=== PATIENT | female | born 1975 | race Caucasian/White ===

== ENCOUNTER 2021-09-02 23:08 | Emergency (ER) | payer MEDICAID, SELFPAY ==
[2021-09-02 23:10] VITALS: BP 205/107; PULSE 83; RESP 16; TEMP 36.7; O2SAT 97; BMI 40.9
--- NOTE | 2021-09-02 23:44 | ED.VIS.DENTA ---
HPI History of Present Illness Chief Complaint: Dental Informant: patient Onset/Context/Timing Onset: Today and Yesterday Context: Gradual Onset Timing: Continuous Current Severity: Moderate Maximum Severity: Severe Associated Symptoms Assocated Symptom - Dental: cold sensitivity; Negative for fever, jaw swelling or face swelling Narrative Narrative: 46-year-old female complaining of right lower jaw dental pain. Patient states she was at a local dental clinic they started doing a root canal at the doing 2 stages. She had a temporary filling placed which came out and now she is having excruciating throbbing pain. She denies any fever or facial or jaw swelling. No discharge. She is currently on no medications. Prior similar symptoms: Yes Recent Illness/Hospitalization: No PFSH PFSH Medical History Anxiety Depression Smoker Home Medications NK 09/02/21 [History Last Taken Unknown] Allergy/AdvReac Type Severity Reaction Status Date / Time Penicillins Allergy Hives Verified 09/02/21 23:09 Surgical History History of delivery Social History Smoking Status: Heavy Smoker (>10/day) ROS ROS ED ROS Narrative Denies recent illness. Review of Systems ROS Unobtainable: Denies due to encephalopathy Constitutional Constitutional ED: Denies fever(s) ENT ENT ED: Denies ear pain or sore throat Cardiovascular Cardiovascular: Denies chest pain Respiratory/Chest Respiratory/Chest: Denies dyspnea Gastrointestinal Gastrointestinal: Denies abdominal pain, diarrhea, nausea or vomiting Genitourinary Genitourinary ED: Denies dysuria Musculoskeletal Musculoskeletal: Denies myalgias Integumentary Denies rash Neurologic Neurologic: Denies headache(s) Psychiatric Psychiatric: Denies depression Endocrine Endocrinology: Denies polyuria Hematologic/Lymphatic Hematologic/Lymphatic: Denies easy bruising Allergic/Immunologic Allergic/Immunologic ED: Denies urticaria EXAM Physical Exam Narrative Exam Narrative: White female no acute distress vital signs stable initial blood pressure 205/107 with likely from pain. H EENT exam right lower tooth to the right of midline is a large cavity in it. Tender to palpation. There is really no significant gingival swelling or any obvious periodontal abscess. There is no facial swelling. She has multiple missing teeth and several cavities. Is able to close her jaw without difficulty the floor of her mouth is soft and nontender. Otherwise exam unremarkable. Const Vital Signs: 09/02/21 23:10 Temperature 98.1 F Temperature Source Temporal Pulse Rate 83 Respiratory Rate 16 Blood Pressure 205/107 H Blood Pressure Mean 139 Pulse Ox 97 Oxygen Delivery Method Room Air Positive well nourished and well developed General Appearance ED: well developed and NAD HEENT HEENT Narrative: Right lower dentition with large cavity and tenderness to palpation. No significant swelling. No abscess. tenderness Mouth ED: Yes oral and palatal mucosa normal, Yes lips normal, Yes tongue normal and Yes salivary gland normal Mouth: oral and palatal mucosa normal, lips normal, tongue normal and salivary gland normal Teeth and Gingiva: caries Throat: posterior oropharynx normal Eyes PERRL and EOMs intact bilaterally Neck no lymphadenopathy, supple and no JVD General: normal visual inspection; Negative for anterior neck swelling, tenderness or submandibular swelling Lymph Lymphatic: no lymphadenopathy noted; Negative for lymphadenopathy Chest Wall inspection of chest normal and palpation of chest normal Resp normal respiratory effort and clear to auscultation bilaterally Cardio regular rate, regular rhythm, S1 normal heart sound, S2 normal heart sound and no murmurs GI normal to inspection, nondistended, normoactive bowel sounds, non-tender and non-distended Palpation: soft Extremity normal to inspection Neuro oriented x3 and no focal motor deficits Sensorium / Orientation: alert, oriented to person, oriented to place and oriented to time Motor Exam: strength 5/5 throughout Psych mental status grossly normal Skin no rashes or lesions noted and no wounds MDM MDM MDM Narrative Medical decision making narrative: Discussed with patient treatment options she will follow up with her dentist tomorrow. They can place a new temporary filling. She may have pulpitis. There is no signs of infection. I did a dental block with lidocaine with epinephrine and she seemed to get significant relief within minutes. She will use Motrin and Tylenol at home for pain. She will be discharged with 2 Kidder to use tonight. She is driving she can take those at home. I did not give her a prescription of narcotic pain medication. Discharge Plan Triage Chief Complaint: Dental ED Provider: Britton Gallrado Dx/Rx/DC Orders Clinical Impression: Pain, dental Instructions: ED Dental Pain Prescriptions: No Action NK RF: 0 Primary Care Provider: Care Physician,No Primary Referrals: Lore Hewitt [NON-STAFF] - As soon as possible Care Physician,No Primary [Primary Care Provider] - Activity Restrictions/Additional Instructions: Use the Kidder at home for pain. No alcohol or driving while taking those. Otherwise Motrin and Tylenol for pain. Ice to your jaw. Call and follow-up with your dentist tomorrow. Disposition Disposition: Home, Self Care
[2021-09-02] MEDS: HYDROcodone Bitartrate/Apap 5/325 Tablet PO (23:54)
[2021-09-02] MEDS: Lidocaine 1% /Epi 1:100 (20ml) 20 ML Vial 3 ML INFILT (23:55)
[2021-09-02 23:57] VITALS: BP 173/100; PULSE 93; RESP 14; O2SAT 98
== END 2021-09-02 23:57 | disposition home or self-care (01) ==
PROVIDERS: Emergency Provider Emergency Medicine
DX: K08.89 Other specified disorders of teeth and supporting structures (principal); K02.9 Dental caries, unspecified; F17.200 Nicotine dependence, unspecified, uncomplicated
CPT/HCPCS: 99282

== ENCOUNTER 2021-09-21 21:43 | Emergency (ER) | payer MEDICAID, SELFPAY ==
[2021-09-21 21:44] VITALS: BP 215/136; PULSE 104; RESP 16; TEMP 36.4; O2SAT 100; BMI 40.1
[2021-09-21 21:45] VITALS: BP 215/136; PULSE 104; RESP 16; TEMP 36.4; O2SAT 100
--- NOTE | 2021-09-21 22:26 | ED.VIS.DENTA ---
HPI History of Present Illness Chief Complaint: Dental Narrative Narrative: Patient presenting for evaluation secondary to dental pain. Patient states that she has been dealing with right lower jaw dental pain over the course of the last couple weeks. She is already been on one course of antibiotics, is currently on a course of clindamycin. Patient reports that she went to the dentist today they informed her that they do not have time to do a root canal today but they could pull her tooth and she did not want them to pull the tooth that day. Patient is using Magic mouthwash and ibuprofen at home she is not getting any sort of pain relief. She denies difficulty swallowing. She denies any fevers. She denies any history of immunosuppression. Review of systems otherwise negative. PFSH PFSH Medical History Anxiety Depression Smoker Home Medications hydrocodone-acetaminophen 1 tab PO Q6H PRN PRN 3 Days #12 tablet 09/21/21 [Rx Last Taken Unknown] Allergy/AdvReac Type Severity Reaction Status Date / Time Penicillins Allergy Hives Verified 09/21/21 21:46 Surgical History History of delivery Social History Smoking Status: Heavy Smoker (>10/day) [facility] ED Constitutional Constitutional ED: Denies fever(s) ENT ENT ED: Reports other Details: Dental pain Respiratory/Chest Respiratory/Chest: Denies cough or dyspnea Gastrointestinal Gastrointestinal: Denies vomiting Integumentary Denies rash Hematologic/Lymphatic Hematologic/Lymphatic: Denies easy bleeding or easy bruising Allergic/Immunologic Allergic/Immunologic ED: Reports mouth swelling EXAM Physical Exam Const Vital Signs: 09/21/21 21:44 09/21/21 21:45 Temperature 97.5 F L 97.5 F L Temperature Source Temporal Temporal Pulse Rate 104 H 104 H Respiratory Rate 16 16 Blood Pressure 215/136 H 215/136 H Blood Pressure Mean 162 162 Pulse Ox 100 100 Positive well nourished and well developed General Appearance ED: well developed and NAD HEENT HEENT Narrative: Oral exam shows the patient to have reasonably good dentition. She has some swelling of the right mandibular jaw. Patient has some focal dental tenderness to percussion over her right mandibular cuspid. No evidence of sublingual edema. No obvious abscess noted. Eyes EOMs intact bilaterally Resp normal respiratory effort Cardio regular rate Extremity normal to inspection Neuro oriented x3 Sensorium / Orientation: alert Psych Mood & Affect: tearful Skin no rashes or lesions noted MDM MDM MDM Narrative Medical decision making narrative: Patient presented secondary to dental pain. An inferior alveolar block was performed using 3 cc of 0.5% bupivacaine and a 25-gauge 1-1/2 inch needle. Patient tolerated this well. I reviewed the patient's prescription reporting record, does not seem to show evidence of diversion. Patient does not have evidence of a deep space infection do not believe that imaging is indication. Patient will be discharged with a course of [place] for treatment of pain. She was recommended to continue following with the dentist, and to finish her course of clindamycin. Discharge Plan Triage Chief Complaint: Dental ED Provider: Ishmael Ziegler Dx/Rx/DC Orders Clinical Impression: Acute pulpitis Instructions: ED Dental Pain, ED Dental Abscess Prescriptions: New hydrocodone-acetaminophen 5-325 mg tablet 1 tab PO Q6H PRN PRN (Reason: Pain) 3 Days Qty: 12 RF: 0 Primary Care Provider: Care Physician,No Primary Referrals: Care Physician,No Primary [Primary Care Provider] - Activity Restrictions/Additional Instructions: Your Dentist Disposition Disposition: Home, Self Care
[2021-09-21] MEDS: Bupivacaine 0.5% PF 10 ML VIAL INFILT (22:44)
[2021-09-21 23:34] VITALS: BP 178/60; PULSE 78; RESP 18
== END 2021-09-21 23:34 | disposition home or self-care (01) ==
PROVIDERS: Emergency Provider Emergency Medicine
DX: K04.01 Reversible pulpitis (principal); F17.200 Nicotine dependence, unspecified, uncomplicated
CPT/HCPCS: 64999; 99282

== ENCOUNTER 2021-12-09 23:42 | Emergency (ER) | payer MEDICAID, SELFPAY ==
[2021-12-09 23:42] VITALS: PULSE 95; RESP 18; TEMP 35.9; O2SAT 100; BMI 41.5
--- NOTE | 2021-12-10 00:07 | RAD_ITS ---
STUDY: X-RAY CHEST REASON FOR EXAM: Female, 46 years old. Cough, dyspnea, fever TECHNIQUE: AP portable COMPARISON: 12/12/2013 FINDINGS: The lungs are clear and expanded. There is no demonstrated pleural abnormality. Normal size heart. Normal mediastinum and christina. Normal visualized pulmonary arteries. Normal visualized aortic arch and descending thoracic aorta. Normal visualized thoracic spine. Normal visualized ribs, clavicles, and shoulders. There is no demonstrated abnormality of the visualized soft tissue structures of the upper abdomen. RAD/Chest 1 View (Portable) IMPRESSION: Negative x-ray examination of the chest. No interval change. Electronically Signed: Héctor Rendon MD at 0:58 EST Tel , Service support ,
[2021-12-10] MEDS: 0.9% Normal Saline 1,000 ML 150 ML IV (00:23)
--- NOTE | 2021-12-10 00:23 | EX.ED.VIS.UR ---
HPI HPI - URI History of Present Illness Chief Complaint: Cough Detail of Chief Complaint: Fever and upper respiratory symptoms that started 6 days ago. 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 She presents with documented temperature and T-max of 101.3 over the past several days. She reports headache. She has upper respiratory symptoms and loss of taste. She had a Covid PCR test performed yesterday. She obtain results today and was told negative. She has not been tested for influenza. She does report headache. Denies photophobia, neck stiffness or neck pain. She does have a cough which is nonproductive. She does have history of asthma. She reports dyspnea on exertion. She does have GI symptoms with significant amount of diarrhea. There is no blood or mucus in the diarrhea. She is he has no history of inflammatory bowel disorder. She denies urologic symptoms. She has not noted a rash. Prior similar symptoms: Yes Recent Illness/Hospitalization: Yes [facility] ED Constitutional Constitutional ED: Reports chills, fever(s) and sweats; Denies weight loss Eyes Eyes: Denies blurry vision, change in vision or diplopia ENT ENT ED: Reports rhinorrhea and sore throat; Denies ear pain Cardiovascular Cardiovascular: Reports chest pain, palpitations and other Details: Chest pain is described as burning with breathing. ; Denies orthopnea, paroxysmal nocturnal dyspnea or racing heartbeat Respiratory/Chest Respiratory/Chest: Reports cough, dyspnea and dyspnea on exertion; Denies orthopnea or paroxysmal nocturnal dyspnea Gastrointestinal Gastrointestinal: Reports abdominal pain, diarrhea and nausea; Denies constipation or melena Genitourinary Genitourinary ED: Denies dysuria, hematuria or urinary frequency Musculoskeletal Musculoskeletal: Reports arthralgias and myalgias; Denies back pain or neck pain Integumentary Denies Abrasions or rash Neurologic Neurologic: Reports headache(s) and weakness; Denies paresthesias Endocrine Endocrinology: Denies polydipsia, polyphagia or polyuria Hematologic/Lymphatic Hematologic/Lymphatic: Denies easy bruising PFSH PFSH Medical History Anxiety Asthma Depression Smoker Home Medications hydrocodone-acetaminophen 1 tab PO Q6H PRN PRN 3 Days #12 tablet 09/21/21 [Rx Last Taken Unknown] Allergy/AdvReac Type Severity Reaction Status Date / Time No Known Allergies Allergy Verified 12/09/21 23:46 Surgical History History of delivery Social History (Updated 12/10/21 @ 00:[address] Larry Patel MD) household members: children Smoking Status: Heavy Smoker (>10/day) substance use type: does not use EXAM Physical Exam Const Vital Signs: 12/09/21 23:42 12/10/21 00:10 Temperature 96.6 F L Temperature Source Temporal Pulse Rate 95 Respiratory Rate 18 Respiratory Effort Labored Respiratory Depth Shallow Respiratory Pattern Normal Pulse Ox 100 Oxygen Delivery Method Room Air Positive well nourished, well developed and obese General Appearance ED: well developed and other Patient appears ill but not toxic. Temperature is 96.6. ; Negative for pallor Nutritional Appearance: obese HEENT Reports dry mucous membranes normocephalic and atraumatic External Ear: external ears normal and no preauricular adenopathy External Auditory Canal: EAC's normal Tympanic Membrane ED: Yes TM's normal bilaterally Mouth ED: Yes dry mucous membranes Mouth: dry mucous membranes Throat: posterior oropharynx normal Eyes PERRL and EOMs intact bilaterally General Eye ED: Negative for pale conjunctiva or scleral icterus Neck no lymphadenopathy, supple, no meningeal signs and no JVD General: Negative for anterior neck swelling Resp normal respiratory effort and clear to auscultation bilaterally Effort and Inspection: other Egophony noted right upper lobe posteriorly. Auscultation: Negative for rales, rhonchi or wheezes Cardio S1 normal heart sound, S2 normal heart sound and no murmurs Rate: regular rate Rhythm: regular rhythm GI non-tender, non-distended and no masses Auscultation: normoactive bowel sounds Palpation: soft Back/Spine no CVA tenderness and normal ROM Extremity normal to inspection and full ROM General Extremety ED: Negative for cyanosis or tenderness General Extremity: Negative for cyanosis Neuro oriented x3, CN's II-XII intact bilaterally and no sensory deficits noted Sensorium / Orientation: alert Psych mental status grossly normal Skin General Skin Exam: Negative for jaundice or pallor Lesions: no lesions Rashes: no rashes MDM MDM MDM Narrative Medical decision making narrative: Since patient had a negative Covid PCR test yesterday Covid test was not repeated. She may have influenza since she has not been vaccinated. Will assess for influenza. Chest x-ray to rule out pneumonia since she is having recurrent fever for days. CBC to assess white count and rule out anemia as cause of her dyspnea and dyspnea on exertion. Comprehensive metabolic panel to assess electrolytes, anion gap and renal function as well as liver enzymes. Patient was informed of her test results at 0118. She still symptomatic recommend quarantine. Even though her Covid test was negative yesterday clinically she has Covid. Lab Data Attestation: I reviewed the patient's lab results. Lab results narrative: White count, H&H and differential are unremarkable. Comprehensive metabolic panel is remarkable for glucose of 144. Labs: Laboratory Results - last 24 hr 12/10/21 12/10/21 00:28 00:28 WBC 9.9 RBC 4.79 Hgb 14.2 Hct 43.2 MCV 90.2 MCH 29.6 MCHC 32.9 RDW Std Deviation 44.1 H RDW Coeff of Raymon 13.2 Plt Count 213 MPV 10.9 Immature Gran % (Auto) 0.400 Neut % (Auto) 54.7 Lymph % (Auto) 36.2 [place] % (Auto) 4.6 Eos % (Auto) 3.7 Baso % (Auto) 0.4 Absolute Neuts (auto) 5.4 Absolute Lymphs (auto) 3.57 Nucleated RBC % 0 Sodium 140 Potassium 3.8 Chloride 106 Carbon Dioxide 28.0 Anion Gap 6 BUN 14 Creatinine 0.86 Estim Creat Clear Calc 81.18 Est GFR (MDRD) Af Amer 92 Est GFR (MDRD) Non-Af 76 BUN/Creatinine Ratio 16.3 Glucose 144 H Calcium 9.0 Total Bilirubin 0.20 AST 19 ALT 27 Alkaline Phosphatase 64 Total Protein 7.9 Albumin 3.0 L Globulin 4.9 H Albumin/Globulin Ratio 0.6 L Influenza rapid test for type a and type B were both negative. Radiography Diagnostic Testing: Clinical Impression(s) from Imaging Studies Chest X-Ray 12/10/21 00:07 IMPRESSION: Negative x-ray examination of the chest. No interval change. Electronically Signed: Héctor Rendon MD at 0:58 EST Tel , Service support , Portable single view chest x-ray reveals normal cardiac silhouette size. Perihilar regions unremarkable. Lung parenchyma is unremarkable. [place] structures are unremarkable. The chest x-ray is unremarkable. X-ray was interpreted by me at 0052. Discharge Plan Triage Chief Complaint: Cough ED Provider: Larry aPtel Dx/Rx/DC Orders Clinical Impression: Clinical diagnosis of COVID-19, Fever due to infection, Diarrhea, Hyperglycemia Instructions: Coronavirus Disease 2019 (COVID-19): Caring for Yourself or Others Prescriptions: No Action hydrocodone-acetaminophen 5-325 mg tablet 1 tab PO Q6H PRN PRN (Reason: Pain) 3 Days Qty: 12 RF: 0 Stand Alone Forms: ED Work / School Excuse Primary Care Provider: Care Physician,No Primary Referrals: Jhony Rico MD [STAFF PHYSICIAN] - 1 Week if not improving Care Physician,No Primary [Primary Care Provider] - Disposition Disposition: Home, Self Care
[2021-12-10 00:36] LABS: Absolute Lymphocyte Count 3.57 X10^3/uL (0.83-4.51); Absolute Neutrophil Count 5.4 X10^3/uL (2.0-7.7); Basophil# 0.04 X10^3/uL; Basophil% 0.4 % (0-1); Eosinophil# 0.36 X10^3/uL; Eosinophils% 3.7 % (0-5); Hematocrit 43.2 % (37-47); Hemoglobin 14.2 g/dL (12.0-15.0); Lymphocyte # 3.57 X10^3/ul (0.83-4.51); Lymphocyte % 36.2 % (19-41); Mean Corp Hgb Conc 32.9 g/dL (32-36); Mean Corpuscular Hgb 29.6 pg (27.0-32.0); Mean Corpuscular Volume 90.2 fL (81-99); Mean Platelet Vol. 10.9 fl (6.2-12.0); Monocyte# 0.45 X10^3/uL; Monocyte% 4.6 % (0-10); NRBC Flagged by Analyzer 0 % (0-5); Neutrophil # 5.39 X10^3/uL (2.7-7.7); Neutrophil % 54.7 % (47-70); Platelet Count 213 K/mm3 (150-450); RBC Distribution Width CV 13.2 % (11.6-14.6); RBC Distribution Width SD 44.1 fl (35.1-43.9); Red Blood Count 4.79 M/mm3 (4.2-5.4); White Blood Count 9.9 K/mm3 (4.4-11.0)
[2021-12-10 01:03] LABS: ALB/GLOB Ratio 0.6 RATIO (0.9-2.4); AST(SGOT) 19 U/L (15-37); Alanine Aminotransfer ALT/SGPT 27 U/L (13-56); Alkaline Phosphatase 64 U/L (45-117); Anion Gap 6 (5-15); BUN 14 mg/dL (7-18); BUN/Creat Ratio 16.3 RATIO (10-20); Chloride 106 mmol/L (98-107); Creatinine, Serum 0.86 mg/dL (0.55-1.02); EST Glomerular Filtration Rate 76 mL/min (>60); Est Glom Filt Rate - Afr Amer 92 mL/min (>60); Estimated Creatinine Clearance 81.18 ml/min; Globulin 4.9 g/dL (2.2-4.2); Glucose 144 mg/dL (74-106); Potassium 3.8 mmol/L (3.5-5.1); Protein, Total 7.9 g/dL (6.4-8.2); Sodium Level 140 mmol/L (136-145)
== END 2021-12-10 01:31 | disposition home or self-care (01) ==
PROVIDERS: Emergency Provider Emergency Medicine; Visit Provider Emergency Medicine
DX: U07.1 COVID-19 (principal); Z68.41 Body mass index [BMI] 40.0-44.9, adult; R19.7 Diarrhea, unspecified; R73.9 Hyperglycemia, unspecified; F17.200 Nicotine dependence, unspecified, uncomplicated; E66.9 Obesity, unspecified
CPT/HCPCS: 71045; 80053; 85025; 87804; 99284; J7030; A4216

== ENCOUNTER 2023-12-02 13:31 | Emergency (ER) | payer MEDICAID, SELFPAY ==
[2023-12-02 13:32] VITALS: BP 181/84; PULSE 66; RESP 14; TEMP 37.2; O2SAT 100; BMI 42.7
--- NOTE | 2023-12-02 14:22 | EDS_ITS ---
HPI <ROVERTO Salguero - Last Filed: 12/02/23 15:02> History of Present Illness Chief Complaint: Dental Narrative Narrative: Patient presenting today due to dental pain. She reports that she has had pain to her right upper tooth for the past 2 days. This has happened in the past where she has required antibiotics. Today, she woke up with a lot of swelling to the right side of her face and became concerned for dental abscess. She does not currently have a dentist. She denies any chronic health conditions. She denies fevers and chills. PFSH <ROVERTO Salguero - Last Filed: 12/02/23 15:02> PFSH Medical History Anxiety Asthma Depression Smoker Home Medications hydrocodone-acetaminophen 5-325mg 5mg-325mg 1 tab PO Q6H PRN PRN Pain 3 days #12 TABLETS 09/21/21 [Rx Last Taken Unknown] amoxicillin 500 mg capsule 500 mg PO TID 7 days #21 caps 12/02/23 [Rx Last Taken Unknown] hydrocodone-acetaminophen 5-325mg 5mg-325mg 1 tab PO DAILY 2 days #6 tabs 12/02/23 [Rx Last Taken Unknown] naproxen 500 mg tablet 500 mg PO BID PRN pain #14 tabs 12/02/23 [Rx Last Taken Unknown] Allergy/AdvReac Type Severity Reaction Status Date / Time No Known Allergies Allergy Verified 12/02/23 13:32 Surgical History History of delivery Social History household members: children Smoking Status: Heavy Smoker (>10/day) substance use type: does not use ROS <ROVERTO Salguero - Last Filed: 12/02/23 15:02> ROS ED Constitutional Constitutional ED: Denies chills or fever(s) Cardiovascular Cardiovascular: Denies chest pain Respiratory/Chest Respiratory/Chest: Denies cough or dyspnea Gastrointestinal Gastrointestinal: Denies abdominal pain, nausea or vomiting Musculoskeletal Musculoskeletal: Denies arthralgias or myalgias Integumentary Denies rash Neurologic Neurologic: Denies weakness EXAM <ROVERTO Salguero - Last Filed: 12/02/23 15:02> Physical Exam Const Vital Signs: 12/02/23 13:32 12/02/23 14:49 Temperature 99 F Temperature Source Temporal Pulse Rate 66 72 Respiratory Rate 14 16 Blood Pressure 181/84 H 126/71 H Blood Pressure Mean 116 89 Pulse Ox 100 98 Oxygen Delivery Method Room Air Positive well nourished, well developed and no apparent distress General Appearance ED: well developed HEENT Reports normocephalic and head/scalp atraumatic HEENT Narrative: Pain to the right maxillary second bicuspid, no trismus, no drooling, no dental abscess Mouth ED: Yes moist mucous membranes normal Throat: posterior oropharynx normal Eyes PERRL and EOMs intact bilaterally Neck full ROM and supple Chest Wall inspection of chest normal Resp normal respiratory effort and clear to auscultation bilaterally Cardio regular rate and regular rhythm GI soft to palpation, non-tender, non-distended and no masses Back/Spine normal ROM and normal to inspection Extremity normal to inspection and full ROM Neuro oriented x3, CN's II-XII intact bilaterally, moves all extremities, no focal motor deficits and no sensory deficits noted Sensorium / Orientation: awake and alert Psych mental status grossly normal and thought process normal Skin no rashes or lesions noted and no wounds <Dr. Srikanth Lizama MD - Last Filed: 12/02/23 14:47> Physical Exam Const Vital Signs: 12/02/23 13:32 12/02/23 14:49 Temperature 99 F Temperature Source Temporal Pulse Rate 66 72 Respiratory Rate 14 16 Blood Pressure 181/84 H 126/71 H Blood Pressure Mean 116 89 Pulse Ox 100 98 Oxygen Delivery Method Room Air MDM <ROVERTO Salguero - Last Filed: 12/02/23 15:02> [facility] Narrative Medical decision making narrative: Patient was continued with pain to her right axillary second bicuspid that she has had over the past 2 days. She reports that she has had issues with this tooth ever since having a crown placed by a dentist. She no longer sees a dentist and does not follow with any dentist. She is nontoxic-appearing and in no acute distress, vitals are unremarkable. She will be given Tylenol for pain and will be started on amoxicillin with first dose here. No signs of dental abscess or Ludewig's angina. She will be given a dental referral sheet. She will be discharged home in stable condition and is comfortable with plan. She will be given a few S[place]ents for pain and a prescription for naproxen. <Dr. Srikanth Lizama MD - Last Filed: 12/02/23 14:47> [facility] Treatment and Re-Evaluation :: I have personally performed a face to face assessment of the patient and have reviewed the EVELINA Note. I performed a substantive portion of the visit including all aspects of the following. My perez findings include: History is pain and swelling couple days after dental procedure. No fevers or chills or discharge from her nose, mouth, or bleeding. Exam is tender tooth approximately #4, there is some associated maxillary swelling but no discrete abscess. Gingiva normal-appearing. No bleeding no sign of necrosis. No purulent nasal discharge. Medical Decison Making patient given prescription for antibiotics and analgesics and requesting anti-inflammatories as well which is also given. Dental follow- up advised. Other additions or changes: [None] Discharge Plan Triage Chief Complaint: Dental ED Midlevel Provider: Rocío Abarca ED Provider: Srikanth Lizama Dx/Rx/DC Orders Clinical Impression: Dental caries, Pain, dental Instructions: ED Dental Pain Prescriptions: New hydrocodone-acetaminophen 5-325 mg tablet 1 tab PO DAILY 2 Days Qty: 6 0RF amoxicillin 500 mg capsule 500 mg PO TID 7 Days Qty: 21 0RF naproxen 500 mg tablet 500 mg PO BID PRN (Reason: pain) Qty: 14 0RF No Action hydrocodone-acetaminophen 5-325 mg tablet 1 tab PO Q6H PRN PRN (Reason: Pain) 3 Days Qty: 12 0RF Primary Care Provider: Care Physician,No Primary Referrals: Care Physician,No Primary [Primary Care Provider] - Activity Restrictions/Additional Instructions: Take antibiotics as prescribed and follow-up with a dentist. Return for worsening of symptoms. Disposition Disposition: Home, Self Care Discharge Date/Time: 12/02/23 14:50
[2023-12-02] MEDS: AMOXICILLIN 500 MG CAPSULE PO (14:23)
[2023-12-02] MEDS: Acetaminophen 325 MG Tablet 650 MG PO (14:23)
[2023-12-02 14:49] VITALS: BP 126/71; PULSE 72; RESP 16; O2SAT 98
--- OUTSIDE RECORDS SUMMARY | 2023-12-02 17:15 | XMS RPT_ITS | CCD ---
Author Name Unknown Address [address] [place] [address] Organization [facility] Care Team Providers Care Subsea Engineer Name Role Phone DAVEY LOWE Attending Unavailable XIMENA WOODALL Attending Unavailable PROVIDER, UNKNOWN Admitting Unavailable ZANDRA WALSH, DEVENDRA Urbano Attending Unavailable PHYSICIAN, NONE Primary Care Unavailable VLAD CANCINO Referring Unavailable VLAD CANCINO Referring Unavailable VLAD CANCINO Attending Unavailable Allergies Allergy Classification Reported Allergen(s) Allergy Type Date of Onset Reaction(s) Facility (2 sources) Penicillins; Translations: [PENICILLINS] Propensity to adverse reactions to drug (disorder) 8 [facility] Repository (1 source) procaine; Translations: [PROCAINE HCL] Drug Allergy 8 [facility] Repository (1 source) Ketorolac; Translations: [KETOROLAC TROMETHAMINE] [facility] Problems Problem Classification Problem Date Documented Da te Episodic/Chronic Abdominal pain (1 source) Abdominal pain Onset: 02-09-2019 Episodic Conditions associated with dizziness or vertigo (2 sources) Dizziness and giddiness; Translations: [Dizziness and giddiness] Onset: 04-24-2023 Episodic Unclassified (1 source) Unknown / UNK(Unknown) Onset: 08-28-2018 Results Test Name Value Interpretation Reference Range Facil ity Encounters Encounter Date Encounter Type Care Provider Facility Start: 04-24-2023 End: 04-25-2023 Emergency department patient visit VLAD CANCNIO [facility] Start: 12-04-2022 End: 12-04-2022 Emergency department patient visit DEVENDRA DE PAZ MD Facility:B Start: 10-09-2019 End: 10-09-2019 Emergency department patient visit XIMENA WOODALL Facility:[facility] Start: 02-09-2019 End: 02-09-2019 Emergency department patient visit DAVEY LOWE Facility:[facility] Start: 08-28-2018 End: 08-28-2018 Emergency department patient visit [facility] Procedures Date Procedure Procedure Detail Performing Clinician Start: 10-09-2019 DENTAL CLINIC SERVICE REQUEST XIMENA WOODALL Start: 10-09-2019 DISCHARGE PATIENT XIMENA WOODALL Payers Date Payer Category Payer Unknown [id number] 2019 Unknown 1975 Unknown [id number] 1975 Unknown [id number] Summary Purpose Family History No Family History Records FoundNo Family History Records FoundNo Family History Records FoundNo Family History Records FoundNo Family History Records FoundNo Family History Records FoundNo Family History Records FoundNo Family History Records FoundNo Family History Records FoundNo Family History Records Found Advance Directives No Advanced Directives Records FoundNo Advanced Directives Records FoundNo Advanced Directives Records FoundNo Advanced Directives Records FoundNo Advanced Directives Records FoundNo Advanced Directives Records FoundNo Advanced Directives Records FoundNo Advanced Directives Records FoundNo Advanced Directives Records FoundNo Advanced Directives Records Found Additional Source Comments INFORMATION SOURCE (unrecogn ized section and content) DATE CREATED AUTHOR AUTHOR'S ORGANIZ ATION 02/15/2019 [facility] DATE CREATED AUTHOR AUTHOR'S ORGANIZ ATION 06/19/2019 [facility] DATE CREATED AUTHOR AUTHOR[facility]S [facility]GANIZ ATION [facility] DATE CREATED AUTHOR AUTHOR'S ORGANIZ ATION 09/09/2019 [facility] DATE CREATED AUTHOR AUTHOR'S ORGANIZ ATION 01/04/2020 [facility] DATE CREATED AUTHOR AUTHOR'S ORGANIZ ATION 12/13/2020 [facility] DATE CREATED AUTHOR AUTHOR'S ORGANIZ ATION 12/31/2021 [facility] DATE CREATED AUTHOR AUTHOR'S ORGANIZ ATION 12/24/2022 [facility] ([place]) DATE CREATED AUTHOR AUTHOR'S ORGANIZ ATION 05/10/2023 [facility] FOR RECORDS PERTAINING TO PATIENTS WHO ARE OR HAVE BEEN ENROLLED IN A CHEMICAL DEPENDENCY/SUBSTANCEABUSE PROGRAM, SOME INFORMATION MAY BE OMITTED. This clinical summary was aggregated from multiple sources. Caution should be exercised in using it in the provision of clinical care. This summary normalizes information from multiple sources, and as a consequence, information in this document may materially change the coding, format and clinical context of patient data. In addition, data may be omitted in some cases. CLINICAL DECISIONS SHOULD BE BASED ON THE PRIMARY CLINICAL RECORDS. [employer] [facility]. provides no warranty or guarantee of the accuracy or completeness of information in this document.
== END 2023-12-02 14:50 | disposition home or self-care (01) ==
PROVIDERS: Emergency Provider Emergency Medicine; Visit Provider Emergency Medicine
DX: K02.9 Dental caries, unspecified (principal); K08.89 Other specified disorders of teeth and supporting structures; J45.909 Unspecified asthma, uncomplicated; F17.200 Nicotine dependence, unspecified, uncomplicated
CPT/HCPCS: 99283

== ENCOUNTER 2024-03-21 15:17 | Emergency (ER) | payer SELFPAY ==
[2024-03-21 15:18] VITALS: BP 163/116; PULSE 73; RESP 20; TEMP 35.9; O2SAT 98; BMI 42.8
--- NOTE | 2024-03-21 16:00 | ED.VIS.BACK ---
HPI History of Present Illness Chief Complaint: Lower Extremity Injury Informant: patient Onset/Context/Timing Onset: Yesterday Context: Sudden Onset Timing: Continuous Quality: Sharp, Aching, Burning and Throbbing Location: Lumbar, Buttock and Right Leg Worsened by: improves with Bending and - (Standing) Relieved by: Sitting and Remaining Still Associated Symptoms Associated Symptoms: Numbness, Tingling and Radiation to Right Leg; Negative for Radiation to Left Leg, Fever, Abdominal Pain, Dysuria, Unable to Ambulate, Unable to Transfer, Urinary Retention, Urinary Incontinence, Constipation or Fecal Incontinence PFSH PFSH Medical History Anxiety Asthma Depression Smoker Home Medications hydrocodone-acetaminophen 5-325mg 5mg-325mg 1 tab PO Q6H PRN PRN Pain 3 days #12 TABLETS 09/21/21 [Rx Last Taken Unknown] amoxicillin 500 mg capsule 500 mg PO TID 7 days #21 caps 12/02/23 [Rx Last Taken Unknown] hydrocodone-acetaminophen 5-325mg 5mg-325mg 1 tab PO DAILY 2 days #6 tabs 12/02/23 [Rx Last Taken Unknown] hydrocodone-acetaminophen 5-325mg 5mg-325mg 1 tab PO Q4H PRN PRN Pain 2 days #6 TABLETS 12/02/23 [Rx Last Taken Unknown] naproxen 500 mg tablet 500 mg PO BID PRN pain #20 tabs 03/21/24 [Rx Last Taken Unknown] orphenadrine citrate 100 mg tablet,extended release 100 mg PO BID PRN muscle spasm #20 tabs 03/21/24 [Rx Last Taken Unknown] Allergy/AdvReac Type Severity Reaction Status Date / Time No Known Allergies Allergy Verified 03/21/24 15:18 Surgical History History of delivery Social History household members: children Smoking Status: Heavy Smoker (>10/day) substance use type: does not use ROS ROS ED Constitutional Constitutional ED: Denies chills or fever(s) Eyes Eyes: Denies blurry vision or change in vision ENT ENT ED: Denies rhinorrhea or sore throat Cardiovascular Cardiovascular: Denies chest pain or palpitations Respiratory/Chest Respiratory/Chest: Denies cough or dyspnea Gastrointestinal Gastrointestinal: Denies nausea or vomiting Genitourinary Genitourinary ED: Reports hematuria; Denies dysuria Musculoskeletal Musculoskeletal: Reports back pain; Denies neck pain Integumentary Denies abscess or rash Neurologic Neurologic: Denies headache(s) or weakness Allergic/Immunologic Allergic/Immunologic ED: Denies mouth swelling or urticaria EXAM Physical Exam Const Vital Signs: 03/21/24 15:18 Temperature 96.7 F L Temperature Source Temporal Pulse Rate 73 Respiratory Rate 20 H Blood Pressure 163/116 H Blood Pressure Mean 131 Pulse Ox 98 Oxygen Delivery Method Room Air Positive well nourished, well developed and obese General Appearance ED: well developed and NAD Nutritional Appearance: obese HEENT Reports moist mucous membranes Neck supple and no JVD Back/Spine Back/Spine Narrative: There is tenderness over the right lower lumbar paraspinal muscles and sciatic notch. There is tenderness over the right gluteal area. There is no midline tenderness. There is no edema or ecchymosis. There is good range of motion. Strength is 5/5 bilaterally in the lower extremities. There are no sensory deficits noted. Pedal pulses are equal bilaterally. Deep tendon reflexes are 2/4 bilaterally in the lower extremities. Lumbar Spine / Lower Back: straight leg raise negative bilaterally Extremity normal to inspection General Extremety ED: Negative for edema or tenderness General Extremity: Negative for edema Neuro oriented x3 and no sensory deficits noted Sensorium / Orientation: alert Motor Exam: strength 5/5 throughout Deep Tendon Reflexes: Rt Patellar (L4): 2+, Lt Patellar (L4): 2+, Rt Ankle (S1): 2+ and Lt Ankle (S1): 2+ Deep Tendon Reflexes Back: Rt Patellar (L4): 2+, Lt Patellar (L4): 2+, Rt Ankle (S1): 2+ and Lt Ankle (S1): 2+ Psych mental status grossly normal MDM MDM MDM Narrative Medical decision making narrative: Smoking cessation was discussed. Patient was advised that this is most likely sciatic nerve impingement. Patient was given prescriptions for Naprosyn and Norflex. Patient was instructed to use ice to the area. Patient was instructed to follow-up with her primary care physician in 5 to 7 days. Patient was given a note for work. Patient understood and was agreeable with the plan. All questions were answered. Discharge Plan Triage Chief Complaint: Lower Extremity Injury ED Provider: Sal Min Dx/Rx/DC Orders Clinical Impression: Sciatica of right side, Morbid obesity with BMI of 40.0-44.9, adult Instructions: ED Sciatica Prescriptions: New orphenadrine citrate 100 mg tablet extended release 100 mg PO BID PRN (Reason: muscle spasm) Qty: 20 0RF Continued naproxen 500 mg tablet 500 mg PO BID PRN (Reason: pain) Qty: 20 0RF No Action hydrocodone-acetaminophen 5-325 mg tablet 1 tab PO Q6H PRN PRN (Reason: Pain) 3 Days Qty: 12 0RF hydrocodone-acetaminophen 5-325 mg tablet 1 tab PO DAILY 2 Days Qty: 6 0RF amoxicillin 500 mg capsule 500 mg PO TID 7 Days Qty: 21 0RF hydrocodone-acetaminophen 5-325 mg tablet 1 tab PO Q4H PRN PRN (Reason: Pain) 2 Days Qty: 6 0RF Stand Alone Forms: Work Status Form Primary Care Provider: Care Physician,No Primary Referrals: Dom Julian MD [Med Staff - Active Staff] - 5-7 Days Care Physician,No Primary [Primary Care Provider] - Disposition Disposition: Home, Self Care
[2024-03-21] MEDS: Ketorolac 60 MG/2 ML Vial IM (16:19)
[2024-03-21 17:17] VITALS: BP 145/86; PULSE 72; O2SAT 97
[2024-03-21 17:41] VITALS: BP 160/89; PULSE 74; RESP 16; TEMP 36.6; O2SAT 94
== END 2024-03-21 17:42 | disposition home or self-care (01) ==
PROVIDERS: Emergency Provider Emergency Medicine; Visit Provider Emergency Medicine
DX: M54.31 Sciatica, right side (principal); E66.01 Morbid (severe) obesity due to excess calories; Z68.41 Body mass index [BMI] 40.0-44.9, adult; F17.200 Nicotine dependence, unspecified, uncomplicated
CPT/HCPCS: 96372; 99282

== ENCOUNTER 2024-08-05 04:08 | Emergency (ER) | payer SELFPAY ==
[2024-08-05 04:10] VITALS: BP 226/119; PULSE 74; RESP 18; TEMP 36.4; O2SAT 98; BMI 42.9
[2024-08-05 04:12] VITALS: BP 226/119; PULSE 74; RESP 16; TEMP 36.4; O2SAT 98
--- NOTE | 2024-08-05 04:24 | EDS_ITS ---
HPI History of Present Illness Chief Complaint: Dental Narrative Narrative: 49-year-old female who denies significant past medical history presents with pain in her tooth that she has had for the last 4 days. Domonique left lower jaw. She states she saw dentist a few months ago and had a Placed, but it fell off. She has a temporary filling. She is a smoker. She has been taking [id number] medications including NSAIDs without relief of her symptoms. She denies fevers or chills, no other symptoms. She has pain in her left lower jaw from a carious tooth. PFSH [facility], [facility] Medical History Asthma Smoker Anxiety Depression Home Medications ?Medication ?Instructions ?Recorded ?Last Taken ?Type amoxicillin 500 mg tablet 500 mg PO TID #21 tabs 08/05/24 Unknown Rx hydrocodone-acetaminophen 5-325mg 1 tab PO Q6H 2 days #6 TABLETS 08/05/24 Unknown Rx 5mg-325mg Allergy/AdvReac Type Severity Reaction Status Date / Time No Known Allergies Allergy Verified 08/05/24 04:09 Surgical History History of delivery Social History household members: children Smoking Status: Heavy Smoker (>10/day) substance use type: does not use ROS ROS ED ROS Narrative Left lower jaw pain, left tooth pain and bicuspid tooth. No fevers or chills, no nausea or vomiting. No chest pain or shortness of breath. EXAM Physical Exam Narrative Exam Narrative: Afebrile. Vital signs noted. Focused physical examination reveals carious tooth in the bicuspid area of the left lower jaw. No drooling or trismus. No Jacques angina. No angioedema of the tongue. No gingival abscess. Cardiovascular examination regular rate and rhythm, lungs are clear to auscultation bilaterally. Abdomen soft nontender with normal active bowel sounds. Const Vital Signs: 08/05/24 04:10 08/05/24 04:12 08/05/24 04:36 Temperature 97.6 F L 97.6 F L 97.8 F Temperature Source Temporal Temporal Pulse Rate 74 74 78 Respiratory Rate 18 16 16 Blood Pressure 226/119 H 226/119 H 183/88 H Blood Pressure Mean 154 154 119 Pulse Ox 98 98 99 Oxygen Delivery Method Room Air Room Air MDM MDM MDM Narrative Medical decision making narrative: Patient noted to have elevated blood pressure in the emergency department. She is asymptomatic with this. I discussed smoking cessation with her but she states that she is not going to quit because she enjoys it. I do feel that she may have an acute pulpitis so she will be started on amoxicillin. She drove herself here. I reviewed her prior records and she has been seen in the past and did receive 6 [place] [facility] tablets the last time she was here and back in 2020. I wrote her a prescription for amoxicillin 500 mg to take 3 times a day for the next week, and for the 6 [place] [facility] tablets. She was also told to keep an eye on her blood pressure. Upon repeat check, her systolic blood pressure is 183, and her diastolic is down to 88. In review of her previous blood pressures, this is around her baseline. At this point in time, I feel she can be discharged to follow-up with a dentist and a primary care provider. Return instructions reviewed. Disposition is discharged home in stable condition. History & Record Review Discussion w/independent historian: Patient Additional record(s) reviewed:: Prior ED visit and Other ([facility] report) Discharge Plan Triage Chief Complaint: Dental ED Provider: Maikel Gonzalez Dx/Rx/DC Orders Clinical Impression: Pain due to dental caries, Elevated blood pressure reading Instructions: ED Dental Pain, ED Dental Cavity, ED Hypertension, To Be Confirmed Prescriptions: New amoxicillin 500 mg tablet 500 mg PO TID Qty: 21 0RF hydrocodone-acetaminophen 5-325 mg tablet 1 tab PO Q6H 2 Days Qty: 6 0RF Primary Care Provider: Care Physician,No Primary Referrals: Carlos Pruitt MD [Med Staff - Active Staff] - As soon as possible Care Physician,No Primary [Primary Care Provider] - Activity Restrictions/Additional Instructions: Keep an eye on your blood pressure. You may need to have this addressed soon. Return with symptoms of chest pain, shortness of breath, headache. See a dentist soon as possible. Stop smoking. Print Language: [place]ican Disposition Disposition: Home, Self Care
[2024-08-05] MEDS: AMOXICILLIN 500 MG CAPSULE PO (04:35)
[2024-08-05 04:36] VITALS: BP 183/88; PULSE 78; RESP 16; TEMP 36.6; O2SAT 99
== END 2024-08-05 04:55 | disposition home or self-care (01) ==
PROVIDERS: Emergency Provider Emergency Medicine; Visit Provider Emergency Medicine
DX: K02.9 Dental caries, unspecified (principal); F17.200 Nicotine dependence, unspecified, uncomplicated; R03.0 Elevated blood-pressure reading, without diagnosis of hypertension; R68.84 Jaw pain; J45.909 Unspecified asthma, uncomplicated
CPT/HCPCS: 99282

== ENCOUNTER 2024-08-15 06:46 | Emergency (ER) | payer SELFPAY ==
[2024-08-15 06:46] VITALS: BP 210/103; PULSE 72; RESP 18; TEMP 36.6; O2SAT 98
[2024-08-15 06:50] VITALS: BP 210/103; PULSE 72; RESP 16; TEMP 36.6; O2SAT 98; BMI 39.1
--- NOTE | 2024-08-15 07:14 | ED.VIS.DENTA ---
HPI History of Present Illness Chief Complaint: Dental Narrative Narrative: Chief complaint and HPI: Dental pain. 49-year-old female with no significant past medical history presents for evaluation of left lower tooth pain. Patient states that she was just recently seen in our emergency department earlier this month for it. She states she was diagnosed with a dental infection and placed on amoxicillin. She states that her fevers resolved. She states that her pain mildly improved but then worsened yesterday after finishing antibiotics. Patient has not followed up or call the dentist. She admits that she has not seen a dentist in 3 years. She describes this pain as throbbing and radiates to the left side of her face. Uses tobacco. Has been taking Tylenol and NSAIDs with minimal relief. Denies current fever, chills, shortness of breath, chest pain, difficulty swallowing, numbness/tingling, headache, blurry vision. Review of systems: See HPI Medications: As listed on the chart Allergies: As listed on the chart PFSH: Per chart Vital signs: As listed on the chart. Reviewed. Physical exam: Gen: A&O x3, NAD Head: Normocephalic, atraumatic Eyes: No sclera icterus, conjunctiva clear, PERRL, EOMI ENT: TMs clear BL, moist mucous membranes, tolerating secretions, posterior oropharynx unremarkable, uvula midline, tonsils not enlarged, no tonsillar exudates, no submandibular or tongue swelling, no Jacques angina, patient has very poor dentition with broken teeth and dental caries, inflamed gingiva, no palpable or visualized abscess, patient's pain is located in her second premolar and first molar. She has a dental cavity in these teeth. Teeth are tender to touch Neck: Trachea midline, No JVD, Full ROM, No meningismus, no swelling CV: RRR, no murmurs, no peripheral edema Resp: Lungs CTA BL, no w/r/c Musc: Full ROM, no deformity Skin: Warm, dry Neuro: Alert, oriented, grossly intact, sensation intact Psych: Cooperative, appropriate mood and affect [facility] Medical History Asthma Smoker Anxiety Depression Home Medications ?Medication ?Instructions ?Recorded ?Last Taken ?Type amoxicillin 875 mg-potassium 1 tab PO Q12H 14 days #28 tabs 08/15/24 Unknown Rx clavulanate 125 mg tablet oxycodone-acetaminophen 5 mg-325 1 tab PO Q6H 3 days #12 tabs 08/15/24 Unknown Rx mg tablet (Percocet) Allergy/AdvReac Type Severity Reaction Status Date / Time No Known Allergies Allergy Verified 08/15/24 06:47 Surgical History History of delivery Social History household members: children Smoking Status: Heavy Smoker (>10/day) substance use type: does not use EXAM Physical Exam Const Vital Signs: 08/15/24 06:46 08/15/24 06:50 08/15/24 07:55 Temperature 97.8 F 97.8 F 97.5 F L Temperature Source Temporal Temporal Pulse Rate 72 72 71 Respiratory Rate 18 16 18 Blood Pressure 210/103 H 210/103 H 187/107 H Blood Pressure Mean 138 138 133 Pulse Ox 98 98 96 Oxygen Delivery Method Room Air Room Air MDM MDM MDM Narrative Medical decision making narrative: 49-year-old female presents for evaluation of dental pain. Patient has very poor dentition with broken teeth and dental caries. She was seen previously in our emergency department. Record was reviewed. At that time she was placed on amoxicillin and hydrocodone/acetaminophen. Patient denies any systemic symptoms such as fever, chills, nausea, vomiting. No Jacques angina. She is nontoxic. Afebrile. She has hypertensive which I suspect is secondary to her pain. No abscess seen on physical exam. Patient needs to follow-up with a dentist. She was educated thoroughly on this. I did supply her with a sheet of local dentist. She was told that she needs to call to make an appointment as soon as possible. Will give IM Toradol here for pain. Will broaden coverage with Augmentin. Prescribed Percocet. I explained to her that ibuprofen will be the best medication to control her pain. She was educated on dosing. After pain medication, patient's blood pressure did improve. She still hypertensive. But again, given that she is still in pain this is likely the source. Patient is asymptomatic otherwise from her hypertension. Patient is stable to discharge home. Follow-up with dentist. Return precautions explained. She confirmed understanding. Discharge Plan Triage Chief Complaint: Dental ED Provider: Chema Willis Dx/Rx/DC Orders Clinical Impression: Pain due to dental caries Instructions: ED Dental Pain Prescriptions: New amoxicillin-pot clavulanate 875-125 mg tablet 1 tab PO Q12H 14 Days Qty: 28 0RF oxycodone-acetaminophen [Percocet] 5-325 mg tablet 1 tab PO Q6H 3 Days Qty: 12 0RF Primary Care Provider: Care Physician,No Primary Referrals: Care Physician,No Primary [Primary Care Provider] - Dentist,Your [STAFF PHYSICIAN] - Activity Restrictions/Additional Instructions: Call your dentist as soon as possible. Take all you antibiotics. Return if symptoms worsen. Take ibuprofen 600mg every 6 hours as needed for pain. Percocet for severe pain. Don't operate heavy machinery or drive while on narcotics. Follow-up with one of the dentist provided to you. Print Language: Malay Disposition Disposition: Home, Self Care Discharge Date/Time: 08/15/24 08:01
[2024-08-15] MEDS: Ketorolac 30 MG/ML Syringe IM (07:20)
[2024-08-15 07:55] VITALS: BP 187/107; PULSE 71; RESP 18; TEMP 36.4; O2SAT 96
== END 2024-08-15 08:01 | disposition home or self-care (01) ==
PROVIDERS: Emergency Provider Surgery; Visit Provider Surgery
DX: K02.9 Dental caries, unspecified (principal); S02.5XXA Fracture of tooth (traumatic), initial encounter for closed fracture; X58.XXXA Exposure to other specified factors, initial encounter; I10 Essential (primary) hypertension; F17.200 Nicotine dependence, unspecified, uncomplicated
CPT/HCPCS: 96372; 99282

== ENCOUNTER 2024-08-16 17:03 | Emergency (ER) | payer SELFPAY ==
[2024-08-16 17:03] VITALS: BP 182/107; PULSE 89; RESP 16; TEMP 37.1; O2SAT 100; BMI 43.0
--- NOTE | 2024-08-16 17:56 | CT_ITS ---
INDICATION: left jaw pain and swelling EXAMINATION: CT NECK WITH CONTRAST - CT Soft Tissue Neck W/ Contrast Injection TECHNIQUE: Helically acquired images were obtained of the neck following IV contrast. A radiation dose optimization technique was used for this scan. IV Contrast dosage and agent: 75 cc [id number] COMPARISON: None. FINDINGS: NASOPHARYNX: Unremarkable. SUPRAHYOID NECK: Unremarkable oropharynx, oral cavity, parapharyngeal space, and retropharyngeal space. INFRAHYOID NECK: Unremarkable larynx, hypopharynx, and supraglottis. THYROID: No focal lesions. SALIVARY GLANDS: Unremarkable. LYMPH NODES: Left cervical lymphadenopathy. VASCULAR STRUCTURES: Unremarkable. VISUALIZED PORTIONS OF THE ORBITS, PARANASAL SINUSES, MASTOID AIR CELLS AND SKULL BASE: Unremarkable. BONES/SOFT TISSUES: There is a 5 x 2 mm rim-enhancing fluid collection adjacent to the left mandibular angle and contiguous with a periapical lucency involving the left mandibular premolar.. There is surrounding fat stranding. THORACIC INLET: Clear lung apices. CT/Soft Tissue Neck WITH Contrast IMPRESSION: 5 mm left buccal abscess contiguous with a dental abscess of the left mandibular premolar. Electronically Signed: Héctor Ball MD at 19:17 EDT ,
--- NOTE | 2024-08-16 17:58 | ED.VIS.DENTA ---
HPI History of Present Illness Chief Complaint: Dental Informant: patient Narrative Narrative: Patient is a 49-year-old female with history of regular tobacco use presenting with worsening pain and swelling in her left lower jaw. Patient's states this is her third ER visit for this. She was seen on 08/05 and placed on a course of amoxicillin. The day after she finished that she felt her symptoms worsen and was seen yesterdayWhere she reported worsening of her symptoms again. Was prescribed Augmentin and given Percocet for pain. Instructed to take Motrin 600 mg every 6 hours as well. She states her symptoms having continued to worsen. She states she is now having numbness between her chin and below her ear on her jaw. At this is on the left. She is worried she has an abscess. She also notes when she woke up her ankles were swollen and she has a mild amount of chest discomfort. She feels mildly short of breath. She states the medicines are not helping with her pain. Denies any fevers. Does report she feels itchy. States has ever had this reaction before. Is not reporting any drooling. No other complaints or concerns at this time. [facility] Medical History Asthma Smoker Anxiety Depression Home Medications ?Medication ?Instructions ?Recorded ?Last Taken ?Type amoxicillin 875 mg-potassium 1 tab PO Q12H 14 days #28 tabs 08/15/24 Unknown Rx clavulanate 125 mg tablet oxycodone-acetaminophen 5 mg-325 1 tab PO Q6H 3 days #12 tabs 08/15/24 Unknown Rx mg tablet (Percocet) gabapentin 100 mg capsule 100 mg PO QHS #7 caps 08/16/24 Unknown Rx ibuprofen 600 mg tablet 600 mg PO Q6H PRN pain #20 tabs 08/16/24 Unknown Rx ondansetron 4 mg disintegrating 4 mg PO Q8H PRN PRN Nausea #10 tabs 08/16/24 Unknown Rx tablet Allergy/AdvReac Type Severity Reaction Status Date / Time No Known Allergies Allergy Verified 08/16/24 17:04 Surgical History History of delivery Social History household members: children Smoking Status: Heavy Smoker (>10/day) substance use type: does not use ROS ROS ED Constitutional Constitutional ED: Denies fever(s) ENT ENT ED: Reports other Details: Left lower dental pain and swelling Cardiovascular Cardiovascular: Reports chest pain Respiratory/Chest Respiratory/Chest: Denies cough Gastrointestinal Gastrointestinal: Reports nausea; Denies vomiting Musculoskeletal Musculoskeletal: Reports neck pain; Denies arthralgias or myalgias Integumentary Denies rash Neurologic Neurologic: Reports headache(s) and paresthesias; Denies weakness Psychiatric Psychiatric: Reports anxiety Hematologic/Lymphatic Hematologic/Lymphatic: Denies easy bleeding or easy bruising EXAM Physical Exam Const Vital Signs: 08/16/24 17:03 08/16/24 18:23 08/16/24 21:03 Temperature 98.8 F 97.6 F L Temperature Source Temporal Temporal Pulse Rate 89 103 H 67 Respiratory Rate 16 20 H 16 Blood Pressure 182/107 H 187/103 H Blood Pressure Mean 132 131 Pulse Ox 100 100 94 Oxygen Delivery Method Room Air Room Air Room Air 08/17/24 00:04 Temperature 97.8 F Temperature Source Pulse Rate 81 Respiratory Rate 17 Blood Pressure 135/81 H Blood Pressure Mean 99 Pulse Ox 92 Oxygen Delivery Method Positive well nourished and well developed General Appearance ED: well developed and NAD HEENT Reports TM's clear HEENT Narrative: Tenderness and soft tissue swelling noted of the left mandibular area. No obvious abscess appreciated but there is swelling of the periosteal/buccal surface near the left premolars. Sublingual mucosa is soft. Multiple missing and carried teeth present. Tympanic Membrane ED: Yes TM's clear Throat: posterior oropharynx normal Eyes PERRL and EOMs intact bilaterally Neck supple Neck Narrative: Tenderness palpation of the left submandibular region. General: tenderness and submandibular swelling Chest Wall inspection of chest normal and palpation of chest normal Resp normal respiratory effort and clear to auscultation bilaterally Cardio regular rate and regular rhythm GI normal to inspection, nondistended, normoactive bowel sounds and non-tender Extremity normal to inspection Extremity Narrative: Trace pain edema of the lower extremities General Extremety ED: Yes edema General Extremity: edema Neuro oriented x3 Sensorium / Orientation: alert Motor Exam: Negative for general weakness Psych mental status grossly normal Mood & Affect: anxious Skin no rashes or lesions noted MDM MDM MDM Narrative Medical decision making narrative: Patient is evaluated for worsening dental pain and swelling. In addition she also feels that her ankle started swelling today. Patient is currently on Augmentin which was prescribed yesterday morning. She also was prescribed Percocet for pain. Patient states that is not working for her pain. Clinically I do not suspect Jacques's angina and she does not have any systemic symptoms. She is uncomfortable and due to the worsening swelling I will obtain CT imaging as well as lab work. Her white blood cell count is normal. She also reports some swelling of her leg so I did add on cardiac workup including BNP, troponin, EKG. swelling is bilateral and mild. Low suspicion for pulmonary emboli. Patient is given IV morphine, Zofran's and IV fluid as well as Toradol in the ER for symptom control. EKG is not consistent with an acute ischemic process. High sensitive troponin is normal as well as her BNP. I do not suspect a more severe systemic cause of her lower extremity edema. CT soft tissue neck does show a 5 mm left buccal abscess continuous with a dental abscess to the left mandibular premolar. Chest x-ray viewed by myself as well as radiology does not show any acute process. Dental block performed using Marcaine. Initially inferior alveolar block is a performed. Patient does not have adequate analgesia with this and a second block with a mixture of a periosteal block of the left premolar space as well as a further alveolar block. Patient now has adequate analgesia. Attempted to use an 18-gauge needle over the area of fluctuance to aspirate purulence however after 4 attempts I did not find any pockets of purulence. The area of abscess is only 5 mm and small. Hopefully by new labs to the rating with an 18-gauge needle track will be open to allow for further drainage. Patient needs further time for her Augmentin to work. Given that she does not have any systemic symptoms including fever or leukocytosis I do not think she requires admission for IV antibiotics or operative drainage at this time. She is counseled on smoking cessation. As she has an active prescription for Percocet I did explain to her that I cannot provide further prescription for opioids. She is given a prescription for gabapentin to hopefully help with the pain as she is complaining of more of a nerve pain as well. Is given a prescription for Motrin 600 mg. Is also given a prescription for Zofran. Is given return precautions. Discharged home in stable condition. Counseled that if her symptoms do where she might require admission for IV antibiotics at that point.Counseled the importance of following up with a dentist. Lab Data Attestation: I reviewed the patient's lab results. Labs: Laboratory Results - last 24 hr 08/16/24 18:06 WBC 10.7 RBC 4.74 Hgb 14.1 Hct 42.5 MCV 89.7 MCH 29.7 MCHC 33.2 RDW Std Deviation 45.0 H RDW Coeff of Raymon 13.9 Plt Count 198 MPV 10.9 Immature Gran % (Auto) 0.500 Neut % (Auto) 68.5 Lymph % (Auto) 23.6 Gilliam % (Auto) 4.7 Eos % (Auto) 2.4 Baso % (Auto) 0.3 Absolute Neuts (auto) 7.3 Absolute Lymphs (auto) 2.53 Nucleated RBC % 0 Sodium 136 Potassium 3.9 Chloride 102 Carbon Dioxide 28.0 Anion Gap 6 BUN 11 Creatinine 0.91 Estim Creat Clear Calc 104.68 Est GFR (MDRD) Af Amer 85 Est GFR (MDRD) Non-Af 70 BUN/Creatinine Ratio 12.1 Glucose 129 H Calcium 9.2 Total Bilirubin 0.30 AST 17 ALT 19 Alkaline Phosphatase 60 Troponin I High Sens 5 B-Natriuretic Peptide 16.4 Total Protein 7.7 Albumin 3.2 Globulin 4.5 H Albumin/Globulin Ratio 0.7 L Radiography Diagnostic Testing: Clinical Impression(s) from Imaging Studies Soft Tissue Neck CT 08/16/24 17:56 IMPRESSION: 5 mm left buccal abscess contiguous with a dental abscess of the left mandibular premolar. Electronically Signed: Héctor Ball MD at 19:17 EDT , Chest X-Ray 08/16/24 18:37 IMPRESSION: No acute radiographic abnormalities. Electronically Signed: Héctor Ball MD at 19:30 EDT , Rhythm Strip Rhythm Strip: Sinus Rhythm Rate: 73 Ectopy: None EKG Initial EKG: Attestation: I personally reviewed and interpreted this EKG as follows: Interpretation: Sinus Rhythm Comments: Normal sinus rhythm at a rate of 73 bpm Normal axis Minimal voltage criteria for LVH Incomplete right bundle branch block present Discharge Plan Triage Chief Complaint: Dental ED Provider: Maddy Stark Dx/Rx/DC Orders Clinical Impression: Abscess, dental, Jaw pain Instructions: ED Dental Pain, ED Dental Abscess Facial Cellulitis Prescriptions: New ibuprofen 600 mg tablet 600 mg PO Q6H PRN (Reason: pain) Qty: 20 0RF ondansetron 4 mg tablet,disintegrating 4 mg PO Q8H PRN PRN (Reason: Nausea) Qty: 10 0RF gabapentin 100 mg capsule 100 mg PO QHS Qty: 7 0RF No Action amoxicillin-pot clavulanate 875-125 mg tablet 1 tab PO Q12H 14 Days Qty: 28 0RF oxycodone-acetaminophen [Percocet] 5-325 mg tablet 1 tab PO Q6H 3 Days Qty: 12 0RF Stand Alone Forms: ED Work / School Excuse Primary Care Provider: Care Physician,No Primary Referrals: Carlos Pruitt MD [Med Staff - Active Staff] - As soon as possible Care Physician,No Primary [Primary Care Provider] - Activity Restrictions/Additional Instructions: Please follow-up with dentist as soon as possible. Take medications as prescribed. Your lab work was normal today. Your blood pressure was elevated in the ER and seems to be rechecked by primary care doctor. Continue taking antibiotics as prescribed. If your symptoms worsen so she over the next 24 to 48 hours, you develop fever have a hard time swelling please return to the emergency room is at that time you might require IV antibiotics and admission. Print Language: Latvian Disposition Disposition: Home, Self Care Discharge Date/Time: 08/17/24 00:10
[2024-08-16] MEDS: 0.9% Normal Saline (1000mL) 1,000 ML 1000 ML IV (18:17)
[2024-08-16] MEDS: morphine 8 MG/ML Syringe IV (18:18)
[2024-08-16] MEDS: Ondansetron 4 MG/2 ML Vial IV (18:18)
[2024-08-16] MEDS: Ketorolac 15 MG/ML Vial IV (18:18)
[2024-08-16 18:23] VITALS: BP 187/103; PULSE 103; RESP 20; TEMP 36.4; O2SAT 100
[2024-08-16 18:29] LABS: Absolute Lymphocyte Count 2.53 X10^3/uL (0.83-4.51); Absolute Neutrophil Count 7.3 X10^3/uL (2.0-7.7); Basophil# 0.03 X10^3/uL; Basophil% 0.3 % (0-1); Eosinophil# 0.26 X10^3/uL; Eosinophils% 2.4 % (0-5); Hematocrit 42.5 % (37-47); Hemoglobin 14.1 g/dL (12.0-15.0); Lymphocyte # 2.53 X10^3/ul (0.83-4.51); Lymphocyte % 23.6 % (19-41); Mean Corp Hgb Conc 33.2 g/dL (32-36); Mean Corpuscular Hgb 29.7 pg (27.0-32.0); Mean Corpuscular Volume 89.7 fL (81-99); Mean Platelet Vol. 10.9 fl (6.2-12.0); Monocyte% 4.7 % (0-10); NRBC Flagged by Analyzer 0 % (0-5); Neutrophil # 7.34 X10^3/uL (2.7-7.7); Neutrophil % 68.5 % (47-70); Platelet Count 198 K/mm3 (150-450); RBC Distribution Width CV 13.9 % (11.6-14.6); Red Blood Count 4.74 M/mm3 (4.2-5.4); White Blood Count 10.7 K/mm3 (4.4-11.0)
[2024-08-16 18:35] LABS: BNP,B-Type NATRIURETIC PEPTIDE 16.4 pg/mL (0-100)
--- NOTE | 2024-08-16 18:37 | RAD_ITS ---
INDICATION: chest pain, edema EXAMINATION/TECHNIQUE: X-RAY - XR Chest 2 Views COMPARISON: 12/10/2021. FINDINGS: The lungs are clear. The cardiomediastinal silhouette is unremarkable. No pleural effusion or pneumothorax. Degenerative changes of the thoracic spine. RAD/Chest PA and Lateral IMPRESSION: No acute radiographic abnormalities. Electronically Signed: Héctor Ball MD at 19:30 EDT ,
[2024-08-16 18:39] LABS: ALB/GLOB Ratio 0.7 RATIO (0.9-2.4); AST(SGOT) 17 U/L (15-37); Alanine Aminotransfer ALT/SGPT 19 U/L (13-56); Albumin, Serum 3.2 g/dL (3.2-5.0); Alkaline Phosphatase 60 U/L (45-117); Anion Gap 6 (5-15); BUN 11 mg/dL (7-18); BUN/Creat Ratio 12.1 RATIO (10-20); Calcium,Total 9.2 mg/dL (8.5-10.1); Chloride 102 mmol/L (98-107); Creatinine, Serum 0.91 mg/dL (0.55-1.02); EST Glomerular Filtration Rate 70 mL/min (>60); Est Glom Filt Rate - Afr Amer 85 mL/min (>60); Estimated Creatinine Clearance 104.68 ml/min; Globulin 4.5 g/dL (2.2-4.2); Glucose 129 mg/dL (74-106); Potassium 3.9 mmol/L (3.5-5.1); Protein, Total 7.7 g/dL (6.4-8.2); Sodium Level 136 mmol/L (136-145); Troponin-I HS 5 pg/mL (3.0-54.0)
[2024-08-16 21:03] VITALS: PULSE 67; RESP 16; O2SAT 94
[2024-08-16] MEDS: Bupivacaine 0.5%/Epi 1.8 ML Syringe INFILT (21:14)
[2024-08-17 00:04] VITALS: BP 135/81; PULSE 81; RESP 17; TEMP 36.6; O2SAT 92
--- NOTE | 2024-08-17 00:05 | ED.RN ---
patient upset dental block will only last a couple hours. Dr. Stark aware. Dr. Stark states She is aware it will only last a couple hours. she has percocet at home she is to take to help. I also prescribed her zofran, ibuprofen and gabapentin. she is to follow up with a dentist. patient informed of Dr. Stark's recommendations. patient states why wouldn't she drain the absess? its right here. RN states she attempted to multiple times but is unable to reach it. Patient states what do you mean? its right here ( pointing to her left back molars) RN states she attempted and was not successful. you need to follow up with a dentist. patient states all she has to do is make an incision right here and drain it. it's not that difficult. RN states you need to follow up with a dentist. she is unable to drain the absess. pt also states she is not picking up her prescriptions. Pharmacy notified
== END 2024-08-17 00:10 | disposition home or self-care (01) ==
PROVIDERS: Emergency Provider Emergency Medicine; Visit Provider Emergency Medicine
DX: K04.7 Periapical abscess without sinus (principal); R03.0 Elevated blood-pressure reading, without diagnosis of hypertension; R60.0 Localized edema; R06.02 Shortness of breath; F17.200 Nicotine dependence, unspecified, uncomplicated
CPT/HCPCS: 70491; 71046; 80053; 83880; 84484; 85025; 93005; 96361; 96374; 96375; 99284; J7030; Q9967; A4216; J2405

== ENCOUNTER 2024-12-30 15:21 | Emergency (ER) | payer SELFPAY ==
[2024-12-30 15:22] VITALS: BP 166/103; PULSE 79; RESP 16; TEMP 36.4; O2SAT 95
[2024-12-30 15:23] VITALS: RESP 12; O2SAT 94; O2SAT 95
--- NOTE | 2024-12-30 15:50 | RAD_ITS ---
PROCEDURE: CHEST 1 VIEW (PORTABLE) REASON FOR EXAM: Cough. TECHNIQUE: PA chest. COMPARISON: Chest x-ray of 08/16/2024. FINDINGS: The cardiothymic contour is normal. The lungs are clear. Bowel gas pattern is normal. No evidence of bowel obstruction or free air. The bones are unremarkable. No radiopaque foreign body is identified. RAD/Chest 1 View (Portable) IMPRESSION: No evidence of acute cardiopulmonary disease. Negative examination. Reading Location: [id number]
[2024-12-30 17:21] VITALS: BP 176/99; PULSE 84; RESP 15; O2SAT 94
--- NOTE | 2024-12-30 17:33 | EX.ED.VIS.UR ---
HPI HPI - URI History of Present Illness Chief Complaint: Cold Sx Informant: patient Narrative Narrative: 49-year-old female with a history of asthma, has been ill for 3 days with fevers, chills, headaches, myalgias, malaise, lots of coughing along with some posttussive emesis to the point where she stopped drinking fluids because she is tired of vomiting, but she denies any nausea. She is having upper abdominal discomfort because of all of the coughing, she feels like she is bruised all over and the inside. 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 She denies being diabetic. ROS ROS ED Constitutional Constitutional ED: Reports body ache(s), chills, fatigue, fever(s), headache(s) and malaise Eyes Eyes: Denies change in vision or diplopia ENT ENT ED: Reports headache(s), nasal congestion and rhinorrhea; Denies ear pain or sore throat Cardiovascular Cardiovascular: Denies chest pain or palpitations Respiratory/Chest Respiratory/Chest: Reports cough, dyspnea, dyspnea on exertion and wheezing Gastrointestinal Gastrointestinal: Reports vomiting and other Details: Diffuse upper abdominal pain/soreness from coughing/posttussive emesis ; Denies diarrhea or nausea Genitourinary Genitourinary ED: Denies dysuria or hematuria Musculoskeletal Musculoskeletal: Denies back pain or neck pain Integumentary Denies abscess or rash Neurologic Neurologic: Reports headache(s); Denies paresthesias or weakness [facility] History Asthma Smoker Anxiety Depression Home Medications ?Medication ?Instructions ?Recorded ?Last Taken ?Type oxycodone-acetaminophen 5 mg-325 1 tab PO Q6H 3 days #12 tabs 08/15/24 Unknown Rx mg tablet (Percocet) gabapentin 100 mg capsule 100 mg PO QHS #7 caps 08/16/24 Unknown Rx ibuprofen 600 mg tablet 600 mg PO Q6H PRN pain #20 tabs 08/16/24 Unknown Rx ondansetron 4 mg disintegrating 4 mg PO Q8H PRN PRN Nausea #10 tabs 08/16/24 Unknown Rx tablet albuterol sulfate 90 mcg/actuation 1 - 2 puff inhalation Q4H PRN PRN 12/30/24 Unknown Rx aerosol inhaler (Ventolin HFA) Wheezing ##1 prednisone 20 mg tablet 40 mg (2 x 20 mg) PO DAILY 6 days 12/30/24 Unknown Rx #12 tabs Allergy/AdvReac Type Severity Reaction Status Date / Time No Known Allergies Allergy Verified 12/30/24 15:21 Surgical History History of delivery Social History household members: children Smoking Status: Heavy Smoker (>10/day) substance use type: does not use EXAM Physical Exam Const Vital Signs: 12/30/24 15:22 12/30/24 15:23 12/30/24 15:23 Temperature 97.5 F L Temperature Source Temporal Pulse Rate 79 Respiratory Rate 16 12 Blood Pressure 166/103 H Blood Pressure Mean 124 Pulse Ox 95 94 95 Oxygen Delivery Method Room Air Room Air Room Air 12/30/24 17:21 Temperature Temperature Source Pulse Rate 84 Respiratory Rate 15 Blood Pressure 176/99 H Blood Pressure Mean 124 Pulse Ox 94 Oxygen Delivery Method Room Air Positive well nourished, well developed and obese Constitutional Narrative: no distress General Appearance ED: well developed and NAD Nutritional Appearance: obese HEENT Reports moist mucous membranes normocephalic and atraumatic Eyes PERRL and EOMs intact bilaterally Neck full ROM, supple and no meningeal signs Resp normal respiratory effort Resp Narrative: Diffuse expiratory wheezes and prolonged expiratory phase, no distress or accessory muscle use. No rales or rhonchi. Conversive in full sentences. Cardio regular rate, regular rhythm and no murmurs Rate: Negative for tachycardic GI non-tender and non-distended Auscultation: normoactive bowel sounds Palpation: soft Back/Spine no CVA tenderness General Back: other FROM Extremity normal to inspection and no calf tenderness General Extremety ED: Negative for edema, pulses abnormal or tenderness General Extremity: Negative for edema or pulses abnormal Neuro oriented x3, CN's II-XII intact bilaterally and no sensory deficits noted Sensorium / Orientation: awake and alert Motor Exam: strength 5/5 throughout Psych Mood & Affect: anxious Skin no rashes or lesions noted and no wounds MDM MDM MDM Narrative Medical decision making narrative: 1 view chest x-ray is normal on my interpretation no pneumonia. Radiology in agreement. Her COVID/influenza/RSV swab came back positive for RSV. This is consistent with her history and exam which is fairly benign. She is not tachycardic. She is wheezy. She is given a duo nebulizer treatment, a dose of prednisone, and an injection of Toradol for her aches and headache. She does not have a nebulizer machine or an inhaler some give her a prescription for an inhaler as well as prednisone. Supportive care advised. She is asking if she is dehydrated her vital signs are normal except for some mild hypertension I do not think she is in need of IV fluids at this time. Encouraged to drink fluids. Radiography Diagnostic Testing: Clinical Impression(s) from Imaging Studies Chest X-Ray 12/30/24 15:50 IMPRESSION: No evidence of acute cardiopulmonary disease. Negative examination. Reading Location: [address] Discharge Plan Triage Chief Complaint: Cold Sx ED Provider: Srikanth Lizama Dx/Rx/DC Orders Clinical Impression: RSV bronchitis, Acute asthma exacerbation Instructions: RSV (Respiratory Syncytial Virus), ED Asthma, Acute (Adult) Prescriptions: New prednisone 20 mg tablet 40 mg PO DAILY 6 Days Qty: 12 0RF albuterol sulfate [Ventolin HFA] 90 mcg/actuation HFA aerosol inhaler 1 - 2 puff inhalation Q4H PRN PRN (Reason: Wheezing) Qty: 1 0RF Discontinued amoxicillin-pot clavulanate 875-125 mg tablet 1 tab PO Q12H 14 Days Qty: 28 0RF No Action oxycodone-acetaminophen [Percocet] 5-325 mg tablet 1 tab PO Q6H 3 Days Qty: 12 0RF ibuprofen 600 mg tablet 600 mg PO Q6H PRN (Reason: pain) Qty: 20 0RF ondansetron 4 mg tablet,disintegrating 4 mg PO Q8H PRN PRN (Reason: Nausea) Qty: 10 0RF gabapentin 100 mg capsule 100 mg PO QHS Qty: 7 0RF Primary Care Provider: Care Physician,No Primary Referrals: Doctor, your [Other] - 1 Week if not improving Print Language: Norwegian Disposition Disposition: Home, Self Care
[2024-12-30] MEDS: Ipratropium/Albuterol Sulfate 3 ML AMPUL.NEB INHALATION (17:44)
[2024-12-30 17:45] VITALS: PULSE 83; RESP 18
[2024-12-30 17:50] VITALS: BP 151/84; PULSE 81; RESP 20; TEMP 36.6; O2SAT 94
[2024-12-30] MEDS: Ketorolac 60 MG/2 ML Vial IM (17:52)
[2024-12-30] MEDS: predniSONE 20 MG Tablet 40 MG PO (17:53)
== END 2024-12-30 18:08 | disposition home or self-care (01) ==
LOC: ED 18:05
PROVIDERS: Emergency Provider Emergency Medicine; Visit Provider Emergency Medicine
DX: J20.5 Acute bronchitis due to respiratory syncytial virus (principal); J45.901 Unspecified asthma with (acute) exacerbation; F17.200 Nicotine dependence, unspecified, uncomplicated
CPT/HCPCS: 71045; 87631; 94640; 94760; 96372; 99282

== ENCOUNTER 2025-04-25 21:04 | Emergency (ER) | payer SELFPAY ==
[2025-04-25 21:05] VITALS: BP 186/114; PULSE 86; RESP 14; TEMP 36.6; O2SAT 99; BMI 41.1
[2025-04-25] MEDS: Amox/Clavulanate 875 MG Tablet PO (21:42)
[2025-04-25] MEDS: Bupivacaine Mpf 0.5% 30 ML VIAL INFILT (21:42)
--- NOTE | 2025-04-25 22:39 | EDS_ITS ---
HPI History of Present Illness Chief Complaint: Dental Informant: patient Narrative Narrative: Hot and cold sensitivity is left lower teeth last 2 days increasing swelling today subjective fevers. History of similar known dental caries. Has not had time to get to the dentist. Previous dental crowns and fillings which has fallen out. She has had previous extractions. No antibiotic allergies. Using [id number] Tylenol Motrin and Aleve last dosing at 3 PM. Denies cough denies urinary symptoms. Prior similar symptoms: Yes PFSH PFSH Medical History Asthma Smoker Anxiety Depression Home Medications ?Medication ?Instructions ?Recorded ?Last Taken ?Type oxycodone-acetaminophen 5 mg-325 1 tab PO Q6H 3 days # 12 tabs 08/15/24 Unknown Rx mg tablet (Percocet) gabapentin 100 mg capsule 100 mg PO QHS #7 caps Unknown Rx ondansetron 4 mg disintegrating 4 mg PO Q8H PRN PRN Na usea #10 tabs 08/16/24 Unknown Rx tablet albuterol sulfate 90 mcg/actuation 1 - 2 puff inhalati on Q4H PRN PRN 12/30/24 Unknown Rx aerosol inhaler (Ventolin HFA) Wheezing ##1 amoxicillin 875 mg-potassium 875 mg PO Q12H #20 TABLET S 04/25/25 Unknown Rx clavulanate 125 mg tablet hydrocodone-acetaminophen 5-325mg 1 tab PO Q6H PRN PRN Pain 3 days 04/25/25 Unknown Rx 5mg-325mg #12 TABLETS naproxen 500 mg tablet 500 mg PO BID PRN #20 tabs 0 04/25/25 Unknown Rx Allergy/AdvReac Type Severity Reaction Status Date / Time No Known Allergies Allergy Verified 04/25/25 21:08 Surgical History History of delivery Social History household members: children Smoking Status: Heavy Smoker (>10/day) substance use type: does not use ROS ROS ED Constitutional Constitutional ED: Reports fever(s) ENT ENT ED: Reports other Details: Dental pain, facial swelling Cardiovascular Cardiovascular: Denies chest pain Respiratory/Chest Respiratory/Chest: Denies cough Gastrointestinal Gastrointestinal: Denies diarrhea or vomiting Musculoskeletal Musculoskeletal: Denies none Integumentary Denies rash or wounds Neurologic Neurologic: Denies weakness EXAM Physical Exam Const Vital Signs: 04/25/25 21:05 Temperature 97.9 F Temperature Source Temporal Pulse Rate 86 Respiratory Rate 14 Blood Pressure 186/114 H Blood Pressure Mean 138 Pulse Ox 99 Positive well nourished and well developed General Appearance ED: well developed HEENT HEENT Narrative: Left mandibular swelling noted. No sublingual edema. There was extracted tooth 18 and 19, 20 decayed down to the gumline, dental carry of 21. Extracted 22. There is focal gum swelling under tooth #20 some fluctuance, pinpoint area slight drainage was noted. normocephalic and atraumatic Eyes General Eye ED: Yes normal appearance of both eyes Neck full ROM Resp normal respiratory effort and normal air movement Cardio regular rate and regular rhythm GI soft to palpation Extremity normal to inspection and full ROM Neuro oriented x3 Skin no rashes or lesions noted and no wounds MDM MDM MDM Narrative Medical decision making narrative: Interventions / MDM: Differential diagnosis: Dental abscess, dental caries Diagnosis considered but do not suspect: No clinical Jacques angina My EKG interpretation: N/A Imaging independently reviewed and interpreted by myself: N/A External documents reviewed: ED visits from August 2020 for initial visits started on Augmentin second visit the following day CT scan with abscess had needle drainage and antibiotics continued. Test considered but not ordered:N/A ED course: Patient nontoxic afebrile in the ED. Exam focal abscess under tooth #20. She is started on Augmentin. With gumline swelling discussed I&D to help. She agreed. This was set up. Verbal consent. Normal sterile conditions. 0.5% of Sensorcaine without epinephrine was used. Initial attempt for inferior alveolar block on the left, 1.5 cc were placed, no full analgesia was obtained. The facial swelling gentle massage noted drainage from pinpoint area around tooth #20. We placed additional 1 cc of numbing medicine for submental block, there was improvement of analgesic. 11 blade used for straight incision over the opening of the drainage. Additional exudates were draining. Patient had some discomfort however tolerated the procedure well. There is additional drainage with opening increased with straight incision. Meds to bed provided for antibiotics NSAIDs and additional hydrocodone to help with symptom control. She is given dental list for follow-up for definitive treatment. All questions were answered. Re-evaluation: stable Disposition discussed with patient/family/significant other: Patient Case discussed with consulting clinician: N/A This note was generated with [employer] dictation software. It may contain incorrect words, spelling, and punctuation that were not noted in checking the note before signing. Discharge Plan Triage Chief Complaint: Dental ED Provider: Robbie Markham Dx/Rx/DC Orders Clinical Impression: Abscess, dental, Dental caries Instructions: ED Dental Abscess Prescriptions: New hydrocodone-acetaminophen 5-325 mg tablet 1 tab PO Q6H PRN PRN (Reason: Pain) 3 Days Qty: 12 0RF amoxicillin-pot clavulanate 875-125 mg tablet 875 mg PO Q12H Qty: 20 0RF naproxen 500 mg tablet 500 mg PO BID PRN Qty: 20 0RF No Action oxycodone-acetaminophen [Percocet] 5-325 mg tablet 1 tab PO Q6H 3 Days Qty: 12 0RF ondansetron 4 mg tablet,disintegrating 4 mg PO Q8H PRN PRN (Reason: Nausea) Qty: 10 0RF gabapentin 100 mg capsule 100 mg PO QHS Qty: 7 0RF albuterol sulfate [Ventolin HFA] 90 mcg/actuation HFA aerosol inhaler 1 - 2 puff inhalation Q4H PRN PRN (Reason: Wheezing) Qty: 1 0RF Primary Care Provider: Care Physician,No Primary Referrals: Care Physician,No Primary [Primary Care Provider] - Activity Restrictions/Additional Instructions: I&D with draining abscess. Take and finish antibiotic as prescribed. Take pain medicine as prescribed. Follow-up with dentist from dental list for definitive treatment. Print Language: Indonesian Disposition Disposition: Home, Self Care
== END 2025-04-25 22:52 | disposition home or self-care (01) ==
PROVIDERS: Emergency Provider Emergency Medicine; Visit Provider Emergency Medicine
DX: K04.7 Periapical abscess without sinus (principal); K02.7 Dental root caries; F17.200 Nicotine dependence, unspecified, uncomplicated
CPT/HCPCS: 41800; 64400; 99282

== ENCOUNTER 2025-07-03 02:05 | Emergency (ER) | payer SELFPAY ==
[2025-07-03 02:07] VITALS: BP 202/92; PULSE 83; RESP 18; TEMP 36.6; O2SAT 97; BMI 41.0
--- NOTE | 2025-07-03 02:27 | EX.ED.DYSGE1 ---
HPI History of Present Illness Chief Complaint: Nosebleed Informant: patient Narrative Narrative: Spontaneous right nasal bleed 7 PM after returning from work. States bending over cleaning the floor when bleeding started. No anticoagulants. Denies any digital manipulation or blowing her nose at that time. Kept rebleeding therefore patient came here. Denies history of similar. Prior similar symptoms: No PFSH PFSH Medical History Physical exam, pre-employment Asthma Smoker Anxiety Depression Home Medications ?Medication ?Instructions ?Recorded ?Last Taken ?Type NK 07/03/25 Unknown History Allergy/AdvReac Type Severity Reaction Status Date / Time No Known Allergies Allergy Verified 07/03/25 02:05 Surgical History History of delivery Social History household members: children Smoking Status: Heavy Smoker (>10/day) substance use type: does not use ROS ROS ED Constitutional Constitutional ED: Denies fever(s) ENT ENT ED: Reports other Details: Right sided epistaxis Cardiovascular Cardiovascular: Denies chest pain Respiratory/Chest Respiratory/Chest: Denies cough Gastrointestinal Gastrointestinal: Denies diarrhea or vomiting Musculoskeletal Musculoskeletal: Denies none Integumentary Denies rash or wounds Neurologic Neurologic: Denies weakness EXAM Physical Exam Const Vital Signs: 07/03/25 02:07 07/03/25 03:17 07/03/25 04:09 Temperature 97.8 F 98.1 F Temperature Source Temporal Pulse Rate 83 64 55 L Respiratory Rate 18 18 16 Blood Pressure 202/92 H 141/99 H 167/90 H Blood Pressure Mean 128 113 115 Pulse Ox 97 98 97 Oxygen Delivery Method Room Air Room Air Positive well nourished and well developed General Appearance ED: well developed HEENT HEENT Narrative: Nasal clips removed, dried blood in both naris. There is dried blood in the mouth however there was no active bleeding posteriorly. normocephalic and atraumatic Eyes General Eye ED: Yes normal appearance of both eyes Neck full ROM Resp normal respiratory effort and normal air movement Cardio regular rate and regular rhythm GI soft to palpation Extremity normal to inspection and full ROM Neuro oriented x3 Skin no rashes or lesions noted and no wounds MDM MDM MDM Narrative Medical decision making narrative: Interventions / MDM: Differential diagnosis: Right side epistaxis Diagnosis considered but do not suspect: N/A My EKG interpretation: N/A Imaging independently reviewed and interpreted by myself: N/A External documents reviewed: N/A Test considered but not ordered:N/A ED course: Patient initial blood pressure on arrival 202/92 however checked in the room 134/90 during my evaluation. Right nasal clip removed, clots were expelled from the right side. I placed Afrin on a cotton into the right nare at the septum. Nasal clip was placed 0223. Patient allowed to rinse her mouth to clear the dried blood. 0317: Cotton removed irritation mid septum right side there is no ulceration. No active bleeding at this time. Will monitor. Monitor no rebleeding ambulated in department no rebleeding. Patient avoid blowing or picking. She is given ENT follow-up. Return precautions. Re-evaluation: stable Disposition discussed with patient/family/significant other: Patient Case discussed with consulting clinician: N/A This note was generated with [employer] dictation software. It may contain incorrect words, spelling, and punctuation that were not noted in checking the note before signing. Discharge Plan Triage Chief Complaint: Nosebleed ED Provider: Robbie Markham Dx/Rx/DC Orders Clinical Impression: Right-sided epistaxis Instructions: ED Epistaxis (Adult) Prescriptions: No Action NK Stand Alone Forms: ED Work / School Excuse Primary Care Provider: Care Physician,No Primary Referrals: Héctor Rosa MD [Med Staff - Active Staff] - 1-2 Weeks Care Physician,No Primary [Primary Care Provider] - Print Language: Austrian Disposition Disposition: Home, Self Care Discharge Date/Time: 07/03/25 04:59
--- OUTSIDE RECORDS SUMMARY | 2025-07-03 02:39 | XMS RPT_ITS | CCD ---
Author Organization [facility] Care Team Providers Care Hide Splitter Name Role Phone [email or web address] Attending Unavailable XIMENA WOODALL Attending Unavailable PROVIDER, UNKNOWN Admitting Unavailable DEVENDRA DE PAZ MD Attending Unavailable PHYSICIAN, NONE Primary Care Unavailable INGRIDAINJORGE Referring Unavailable LAFOUNTAINJORGE Referring Unavailable LAFJORGE BOSTON Attending Unavailable Care Physician, No Primary Primary Care Provider Unavailable Care Physician, No Primary Referring Provider Un available ROVERTO Briceño Attending Provider PHYSICIAN, NONE Primary Care Unavailable AMBAR MILIAN DO Attending Unavailable PHYSICIAN, NONE Primary Care Physician Unavailab le Care Physician, No Primary Primary Care Provider Unavailable Dl WALSH, Dr. Duke Attending Provider Dr. Srikanth Lizama MD Emergency Provider Dr. Robbie Markham DO Emergency Provider Care Physician, No Primary Primary Care Provider Unavailable Dr. Robbie Markham DO Attending Provider Care Physician, No Primary Referring Provider Un available Jamal Briceño Attending Provider Care Physician, No Primary Primary Care Unava ilable Maikel Gonzalez Attending Unavailable Care Physician, No Primary Primary Care Unava ilable Srikanth Lizama Attending Unavailable Care Physician, No Primary Primary Care Unava ilable Care Physician, No Primary Referring Unava ilable Jamal Harvey Attending Unavailable Care Physician, No Primary Primary Care Unava ilable Chema Willis Attending UnavailMaddy Mesa Attending Unavailable Care Physician, No Primary Primary Care Unava ilable Care Physician, No Primary Primary Care Unava ilable Robbie Markham Attending Unavailable Allergies Allergy Classification Reported Allergen(s) Allergy Type Date of Onset Reaction(s) Facility (2 sources) Penicillins; Translations: [PENICILLINS] Propensity to adverse reactions to drug (disorder) 8 [facility] Repository (1 source) procaine; Translations: [PROCAINE HCL] Drug Allergy 8 [facility] Repository (1 source) Ketorolac; Translations: [KETOROLAC TROMETHAMINE] Drug Allergy 9 [facility] Repository Medications Current Medications Medication Drug Class(es) Dates Sig (Normalized) Sig (Original) [id number] 200 actuat albuterol 0.09 mg/actuat metered dose inhaler (3 sources) beta2-Adrenergic Agonist Start: 12-30-2024 Albuterol Sulfate (Ventolin Hfa) 90 mcg/actuation HFA aerosol inhaler Active 1 - 2 NMA INHALATION EVERY 4 HOURS NEEDED as needed for Wheezing December 30, 2024 1:00am Start: 12-04-2022 take 1 dose by inhal ation every four hours as needed albuterol 2.5 mg/3 mL (0.083%) inhalation solution Dose : 2.5 mg = 3 mL, Inhalation, q4h, PRN as needed for wheezing, # 60 EA, 0 Refill(s), Acute bronchitis Exacerbation of asthma Start Date: 12/04/22 Status: Ordered albuterol MDI (90 mcg/inh) CFC free inhalation aerosol (2 sources) Start: 09-06-2024 take 2 puff(s) by inhalation every four hours as needed for wheezing albuterol MDI (90 mcg/inh) CFC free inhalation aerosol 2 puff(s), Inhalation, q4h, PRN as needed for wheezing, # 18 gram(s), 0 Refill(s) Start Date: 09/06/24 Status: Ordered Start: 12-04-2022 take 2 puff(s) by in halation every four hours albuterol MDI (90 mcg/inh) CFC free inhalation aerosol 2 puff(s), Inhalation, q4h, # 1 EA, 0 Refill(s), Acute bronchitis Exacerbation of asthma Start Date: 12/04/22 Status: Ordered benzonatate 100 mg oral capsule (1 source) Non-narcotic Antitussive Start: 09-06-2024 End: 09-13-2024 Tessalon Perles 100 mg oral capsule Dose : 100 mg = 1 cap(s), Oral, TID, PRN as needed for cough, X 7 day(s), # 21 cap(s), 0 Refill(s), 09/13/24 5:29:00 PM EDT Start Date: 09/06/24 Stop Date: 09/13/24 Status: Ordered gabapentin 100 mg oral capsule (2 sources) Anti-epileptic Agent Start: 08-16-2024 take 1 capsule by mouth at bedtime Gabapentin 100 mg capsule Active 100 mg PO AT BEDTIME August 16, 2024 12:00am naproxen 500 mg oral tablet (9 sources) Nonsteroidal Anti-inflammatory Drug Start: 04-25-2025 take 1 tablet by mouth twice daily as needed Naproxen 500 mg tablet Active 500 mg PO TWICE DAILY NEEDED April 25, 2025 12:00am Start: 12-02-2023 End: 08-05-2024 take 1 tablet by mouth twice daily as needed for pain Naproxen 500 mg tablet Discontinued 500 mg PO TWICE A DAY as needed for pain March 21, 2024 4:11pm August 05, 2024 4:09am Completed/Discontinued Medications Medication Drug Class(es) Dates Sig (Normalized) Sig (Original) acetaminophen 325 mg / HYDROcodone bitartrate 5 mg oral tablet (15 sources) Opioid Agonist Start: 04-25-2025 End: 05-17-2025 Hydrocodone-Acetami nophen 5-325 mg tablet Discontinued 1 {tbl} PO EVERY 6 HOURS NEEDED as needed for Pain 12 April 25, 2025 May 17, 2025 2:06pm Start: 12-02-2023 End: 08-05-2024 Hydrocodone-Acetaminophen 5- 325 mg tablet Discontinued 1 {tbl} PO DAILY 6 December 02, 2023 August 05, 2024 4:09am Start: 12-02-2023 End: 08-05-2024 Hydrocodone-Acetaminophen 5- 325 mg tablet Discontinued 1 {tbl} PO EVERY 4 HOURS NEEDED as needed for Pain 6 December 02, 2023 August 05, 2024 4:09am Start: 12-02-2023 take 1 tablet by annette th once daily Hydrocodone-Acetaminophen Active 1 TABLE T PO DAILY 6 December 02, 2023 Start: 12-02-2023 take 1 tablet by annette th every four hours as needed Hydrocodone-Acetaminophen Active 1 TABLE T PO EVERY 4 HOURS NEEDED 6 December 02, 2023 Start: 09-21-2021 End: 08-15-2024 Hydrocodone-Acetaminophen 5- 325 mg tablet Discontinued 1 {tbl} PO EVERY 6 HOURS 6 August 05, 2024 August 15, 2024 6:47am Start: 09-21-2021 take 1 tablet by annette th every six hours as needed Hydrocodone-Acetaminophen Active 1 TABLE T PO EVERY 6 HOURS NEEDED 12 September 21, 2021 acetaminophen 325 mg / oxyCODONE hydrochloride 5 mg oral tablet (2 sources) Opioid Agonist Start: 08-15-2024 End: 05-17-2025 Oxycodone-Acetaminophen (Percocet) 5-325 mg tablet Discontinued 1 {tbl} PO EVERY 6 HOURS 12 August 15, 2024 May 17, 2025 2:06pm amoxicillin 500 mg oral tablet (6 sources) Penicillin-class Antibacterial Start: 08-05-2024 End: 08-15-2024 take 1 tablet by mouth three times daily Amoxicillin 500 mg tablet Discontinued 500 mg PO THREE TIMES A DAY August 05, 2024 12:00am August 15, 2024 6:47am Start: 12-02-2023 End: 08-05-2024 take 1 capsule by mouth three times daily Amoxicillin 500 mg capsule Discontinued 500 mg PO THREE TIMES A DAY 20 06December 02, 2023 1:00am August 05, 2024 4:09am amoxicillin 875 mg / clavulanate 125 mg oral tablet (4 sources) Penicillin-class Antibacterial Start: 04-25-2025 End: 05-17-2025 take 1 tablet by mouth every twelve hours Amoxicillin-Pot Clavulanate 875-125 mg tablet Discontinued 875 mg PO Q12H April 25, 2025 12:00am May 17, 2025 2:06pm Start: 08-15-2024 End: 12-30-2024 Amoxicillin-Pot Clavulanate 875-125 mg tablet Discontinued 1 {tbl} PO Q12H August 15, 2024 12:00am December 30, 2024 6:41pm ibuprofen 600 mg oral tablet (2 sources) Nonsteroidal Anti-inflammatory Drug Start: 08-16-2024 End: 04-25-2025 take 1 tablet by mouth every six hours as needed for pain Ibuprofen 600 mg tablet Discontinued 600 mg PO EVERY 6 HOURS as needed for pain August 16, 2024 12:00am April 25, 2025 9:43pm ketorolac tromethamine 10 mg oral tablet (4 sources) Nonsteroidal Anti-inflammatory Drug, Cyclooxygenase Inhibitor Start: 12-13-2013 End: 12-13-2013 take 1 tablet by mouth every six hours Ketorolac 10 MG tablet Discontinued 10 mg PO EVERY 6 HOURS December 13, 2013 1:00am December 13, 2013 5:28pm ondansetron 4 mg disintegrating oral tablet (2 sources) Serotonin-3 Receptor Antagonist Start: 08-16-2024 End: 05-17-2025 take 1 tablet by mouth every eight hours as needed for nausea Ondansetron 4 mg tablet,disintegra ting Discontinued 4 mg PO EVERY 8 HOURS NEEDED as needed for Nausea August 16, 2024 12:00am May 17, 2025 2:06pm 12 hr orphenadrine citrate 100 mg extended release oral tablet (3 sources) Muscle Relaxant Start: 03-21-2024 End: 08-05-2024 take 1 tablet by mouth twice daily as needed for muscle spasms Orphenadrine Citrate 100 mg tablet extended release Discontinued 100 mg PO TWICE A DAY as needed for muscle spasm March 21, 2024 4:10pm August 05, 2024 4:09am predniSONE 20 mg oral tablet (3 sources) Start: 12-30-2024 End: 04-25-2025 take 2 tablets by mouth once daily Prednisone 20 mg tablet Discontinued 40 mg PO DAILY 12 December 30, 2024 1:00am April 25, 2025 9:43pm Start: 09-06-2024 End: 09-13-2024 predniSONE 20 mg oral tablet Dose : 40 mg = 2 tab(s), Oral, qDay, Take with food, X 7 day(s), # 14 tab(s), 0 Refill(s), 09/13/24 5:25:00 PM EDT Start Date: 09/06/24 Stop Date: 09/13/24 Status: Ordered Problems Problem Classification Problem Date Documented Da te Episodic/Chronic Abdominal pain (1 source) Abdominal pain Onset: 02-09-2019 Episodic Acute bronchitis (2 sources) Respiratory syncytial virus bronchitis; Translations: [Acute bronchitis due to respiratory syncytial virus] 01-07-2025 Episodic Administrative/social admission (2 sources) Patient encounter status; Translations: [Encounter for pre-employment examination] 05-17-2025 Episodic Asthma (6 sources) Asthma; Translations: [Unspecified asthma, uncomplicated] 12-10-2021 Chronic Chronic obstructive pulmonary disease and bronchiectasis (1 source) Bronchitis; Translations: [Bronchitis, not specified as acute or chronic] Onset: 09-06-2024 Episodic Conditions associated with dizziness or vertigo (2 sources) Dizziness and giddiness; Translations: [Dizziness and giddiness] Onset: 04-24-2023 Episodic Diabetes mellitus without complication (4 sources) Hyperglycemia; Translations: [Hyperglycemia, unspecified] 12-18-2021 Episodic Disorders of teeth and jaw (20 sources) Dental caries; Translations: [Dental caries, unspecified] Onset: 04-28-2025 12-02-2023 Episodic Other circulatory disease (2 sources) Elevated blood pressure; Translations: [Elevated blood-pressure reading, without diagnosis of hypertension] 08-13-2024 Episodic Other gastrointestinal disorders (4 sources) Diarrhea; Translations: [Diarrhea, unspecified] 12-18-2021 Episodic Other infections; including parasitic (4 sources) Fever due to infection; Translations: [Unspecified infectious disease] 12-18-2021 Episodic Other nutritional; endocrine; and metabolic disorders (4 sources) Obese class I; Translations: [Obesity, unspecified] 12-13-2013 Chronic Other nutritional; endocrine; and metabolic disorders (3 sources) Body mass index 40+ - severely obese; Translations: [Morbid (severe) obesity due to excess calories] 03-21-2024 Chronic Spondylosis; intervertebral disc disorders; other back problems (3 sources) Disorder of right sciatic nerve; Translations: [Sciatica, right side] 03-21-2024 Episodic Unclassified (1 source) Unknown / UNK(Unknown) Onset: 08-28-2018 Unclassified (1 source) Acute cough; Translations: [Acute cough] Onset: 01-25-2025 Viral infection (4 sources) Disease caused by 2019-nCoV; Translations: [COVID-19] 12-10-2021 Episodic Results Test Name Value Interpretation Reference Range Facility Urgent Care Visit Reporton 0 05-17-2025 Urgent Care Visit Report [facility] [address], [address] [place] [address] OFFICE VISIT Date of Service: 05/17/25 MR#: [id number] Acct: [id number] Name: ELZA ROSAS Rep #: [id number] : 1975 Provider: ROVERTO Schmidt Age/Sex: 49/F Location: [facility] Status: Signed Intake Vital Signs 04/25/25 21:05 Height 5 ft 7 in Intake Visit Reasons: PE NON DOT PHYSICAL/ [facility] Accompanied by: Self Allergies No Known Allergies Allergy (Verified 05/17/25 14:05) Nurse's Note: Patient here for a pre-employment physical [facility] Medical History (Updated 05/17/25 @ 14:12 by Jamal LANYE, PA) Physical exam, pre-employment Asthma Smoker Anxiety Depression Surgical History History of delivery Social History household members: children Smoking Status: Heavy Smoker (>10/day) substance use type: does not use HPI HPI Details: ELZA ROSAS, is a 49 F who presents to the office today for Office Procedures Physical Exam Coding PE Coding Pre-employment PE: Yes Coding Level of Care Code Attention Chad Diagnoses Physical exam, pre-employment Z02.1 Assessment and Plan Assessment and Plan (1) Physical exam, pre-employment: Status: Acute Medications: Discontinued amoxicillin-pot clavulanate 875-125 mg Discontinued Reason: Pt no longer taking 875 mg PO Q12H 20 TABLETS 0RF oxycodone-acetaminophe n 5-325 mg (Percocet) Discontinued Reason: Pt no longer taking 1 TAB PO Q6H 3 days 12 tabs 0RF K02.9 - Dental caries, unspecified ondansetron Discontinued Reason: Pt no longer taking 4 mg PO Q8H PRN PRN 10 tabs 0RF Nausea hydrocodone-acetaminop hen 5-325 mg Discontinued Reason: Pt no longer taking 1 TAB PO Q6H PRN 3 days PRN 12 TABLETS 0RF Pain K04.7 - Periapical abscess without sinus 05/17/25 1445 Date Jamal Esteves Signature: Date (if applicable) CC: Normal [facility] Emergency Department Summary on 04-25-2025 Emergency Department Summary [facility] Department [address] [place] [address] Emergency Department Summary 04/25/25 MR#: [id number] Acct: [id number] Name: ELZA ROSAS Rep #: [id number] : 1975 49 From: Robbie Salter PCP: Care Physician,No Primary Status:REG ER Location: ED HPI History of Present Illness Chief Complaint: Dental Informant: patient Narrative Narrative: Hot and cold sensitivity is left lower teeth last 2 days increasing swelling today subjective fevers. History of similar known dental caries. Has not had time to get to the dentist. Previous dental crowns and fillings which has fallen out. She has had previous extractions. No antibiotic allergies. Using [id number] Tylenol Motrin and Aleve last dosing at 3 PM. Denies cough denies urinary symptoms. Prior similar symptoms: Yes PFSH PFSH Medical History Asthma Smoker Anxiety Depression Home Medications ???Medication ???Instructions ???Recorded ???Last Taken ???Type oxycodone-acetaminophe n 5 mg-325 1 tab PO Q6H 3 days #12 tabs 08/15 Unknown Rx mg tablet (Percocet) gabapentin 100 mg capsule 100 mg PO QHS #7 caps 08/16/24 Unk nown Rx ondansetron 4 mg disintegrating 4 mg PO Q8H PRN PRN Nausea #10 tab s 08/16/24 Unknown Rx tablet albuterol sulfate 90 mcg/actuation 1 - 2 puff inhalation Q4H PRN MO N 12/30/24 Unknown Rx aerosol inhaler (Ventolin HFA) Wheezing ##1 amoxicillin 875 mg-potassium 875 mg PO Q12H #20 TABLETS 5 Unknown Rx clavulanate 125 mg tablet hydrocodone-acetaminop hen 5-325mg 1 tab PO Q6H PRN PRN Pain 3 days 04/25/25 Unknown Rx 5mg-325mg #12 TABLETS naproxen 500 mg tablet 500 mg PO BID PRN #20 tabs 5 Unknown Rx Allergy/AdvReac Type Severity Reaction Status Date / Time No Known Allergies Allergy Verified 04/25/25 21:08 Surgical History History of delivery Social History household members: children Smoking Status: Heavy Smoker (>10/day) substance use type: does not use ROS ROS ED Constitutional Constitutional ED: Reports fever(s) ENT ENT ED: Reports other Details: Dental pain, facial swelling Cardiovascular Cardiovascular: Denies chest pain Respiratory/Chest Respiratory/Chest: Denies cough Gastrointestinal Gastrointestinal: Denies diarrhea or vomiting Musculoskeletal Musculoskeletal: Denies none Integumentary Denies rash or wounds Neurologic Neurologic: Denies weakness EXAM Physical Exam Const Vital Signs: 04/25/25 21:05 Temperature 97.9 F Temperature Source Temporal Pulse Rate 86 Respiratory Rate 14 Blood Pressure 186/114 H Blood Pressure Mean 138 Pulse Ox 99 Positive well nourished and well developed General Appearance ED: well developed HEENT HEENT Narrative: Left mandibular swelling noted. No sublingual edema. There was extracted tooth 18 and 19, 20 decayed down to the gumline, dental carry of 21. Extracted 22. There is focal gum swelling under tooth #20 some fluctuance, pinpoint area slight drainage was noted. normocephalic and atraumatic Eyes General Eye ED: Yes normal appearance of both eyes Neck full ROM Resp normal respiratory effort and normal air movement Cardio regular rate and regular rhythm GI soft to palpation Extremity normal to inspection and full ROM Neuro oriented x3 Skin no rashes or lesions noted and no wounds MDM MDM MDM Narrative Medical decision making narrative: Interventions / MDM: Differential diagnosis: Dental abscess, dental caries Diagnosis considered but do not suspect: No clinical Jacques angina My EKG interpretation: N/A Imaging independently reviewed and interpreted by myself: N/A External documents reviewed: ED visits from August 2020 for initial visits started on Augmentin second visit the following day CT scan with abscess had needle drainage and antibiotics continued. Test considered but not ordered:N/A ED course: Patient nontoxic afebrile in the ED. Exam focal abscess under tooth #20. She is started on Augmentin. With gumline swelling discussed I D to help. She agreed. This was set up. Verbal consent. Normal sterile conditions. 0.5% of Sensorcaine without epinephrine was used. Initial attempt for inferior alveolar block on the left, 1.5 cc were placed, no full analgesia was obtained. The facial swelling gentle massage noted drainage from pinpoint area around tooth #20. We placed additional 1 cc of numbing medicine for submental block, there was improvement of analgesic. 11 blade used for straight incision over the opening of the drainage. Additional exudates were draining. Patient had some discomfort (more content not included)... Normal [facility] Basic Metabolic Profile (BMP )on 12-30-2024 BUN Normal -18 [facility] Comment on above: Result Comment: PT.D ISCHARGED Performed By: #### M 100.678 #### [facility] [address] [place], [address] BUN/CRE Normal 10-20 [facility] Comment on above: Result Comment: PT.D ISCHARGED Performed By: #### M 100.678 #### [facility] [address] [place], [address] CA,Total Normal 8.5-10.1 [facility] Comment on above: Result Comment: PT.D ISCHARGED Performed By: #### M 100.678 #### [facility] [address] [place], [address] CL Normal 98-107 [facility] Comment on above: Result Comment: PT.D ISCHARGED Performed By: #### M 100.678 #### [facility] [address] [place], [address] CO2 Normal 21.0-32.0 [facility] Comment on above: Result Comment: PT.D ISCHARGED Performed By: #### M 100.678 #### [facility] [address] [place], [address] CREAT,SERUM Normal 0.55-1.02 [facility] Comment on above: Result Comment: PT.D ISCHARGED Performed By: #### M 100.678 #### [facility] [address] [place], [address] EST GFR Normal >60 [facility] Comment on above: Result Comment: PT.D ISCHARGED Performed By: #### M 100.678 #### [facility] [address] [place], [address] EST GFR - AA Normal >60 [facility] Comment on above: Result Comment: PT.D ISCHARGED Performed By: #### M 100.678 #### [facility] [address] [place], [address] GAP Normal 5-15 [facility] Comment on above: Result Comment: PT.D ISCHARGED Performed By: #### M 100.678 #### [facility] [address] [place], [address] GLU Normal 74-106 [facility] Comment on above: Result Comment: PT.D ISCHARGED Performed By: #### M 100.678 #### [facility] [address] [place], [address] Potassium Normal 3.5-5.1 [facility] Comment on above: Result Comment: PT.D ISCHARGED Performed By: #### M 100.678 #### [facility] [address] [place], [address] Basic Metabolic Profile (BMP) Normal 136-145 [facility] Comment on above: Result Comment: PT.D ISCHARGED Performed By: #### M 100.678 #### [facility] [address] [place], [address] CBC W/Diff, Automatedon 12-03-2024 Absolute Neut Normal 2.0-7.7 [facility] Comment on above: Result Comment: DEMETRIS ENT DISCHARGED Performed By: #### L 500.2500, L100.0100 #### [facility] [address] [place], [address] HCT Normal 37-47 [facility] Comment on above: Result Comment: DEMETRIS ENT DISCHARGED Performed By: #### L 500.2500, L100.0100 #### [facility] [address] [place], [address] HGB Normal 12.0-15.0 [facility] Comment on above: Result Comment: DEMETRIS ENT DISCHARGED Performed By: #### L 500.2500, L100.0100 #### [facility] [address] [place], [address] MCH Normal 27.0-32.0 [facility] Comment on above: Result Comment: DEMETRIS ENT DISCHARGED Performed By: #### L 500.2500, L100.0100 #### [facility] [address] [place], [address] MCHC Normal 32-36 [facility] Comment on above: Result Comment: DEMETRIS ENT DISCHARGED Performed By: #### L 500.2500, L100.0100 #### [facility] [address] [place], [address] MCV Normal 81-99 [facility] Comment on above: Result Comment: DEMETRIS ENT DISCHARGED Performed By: #### L 500.2500, L100.0100 #### [facility] [address] [place], [address] NEUT% Normal 47-70 [facility] Comment on above: Result Comment: DEMETRIS ENT DISCHARGED Performed By: #### L 500.2500, L100.0100 #### [facility] [address] [place], [address] PLT Normal 150-450 [facility] Comment on above: Result Comment: DEMETRIS ENT DISCHARGED Performed By: #### L 500.2500, L100.0100 #### [facility] [address] [place], [address] RBC Normal 4.2-5.4 [facility] Comment on above: Result Comment: DEMETRIS ENT DISCHARGED Performed By: #### L 500.2500, L100.0100 #### [facility] [address] [place], [address] RDW CV Normal 11.6-14.6 [facility] Comment on above: Result Comment: DEMETRIS ENT DISCHARGED Performed By: #### L 500.2500, L100.0100 #### [facility] [address] [place], [address] RDW SD Normal 35.1-43.9 [facility] Comment on above: Result Comment: DEMETRIS ENT DISCHARGED Performed By: #### L 500.2500, L100.0100 #### [facility] [address] [place], [address] WBC Normal 4.4-11.0 [facility] Comment on above: Result Comment: DEMETRIS ENT DISCHARGED Performed By: #### L 500.2500, L100.0100 #### [facility] [address] [place], [address] Chest 1 View (Portable)on Chest 1 View (Portable) [facility] Imaging Services [address] [place] [address] Chest 1 View (Portable) MR#: [id number] Acct: [id number] Name: ELZA ORSAS Rep #: [id number] : 1975 F 49 From: Ximena Castillo PCP: Care Physician,No Primary Status: PRE ER Study: Chest 1 View (Portable) Date of Exam: 12/30/24 Exam# [id number] Ordering Dr: Provider,Ed P. PROCEDURE: CHEST 1 VIEW (PORTABLE) REASON FOR EXAM: Cough. TECHNIQUE: PA chest. COMPARISON: Chest x-ray of 08/16/2024. FINDINGS: The cardiothymic contour is normal. The lungs are clear. Bowel gas pattern is normal. No evidence of bowel obstruction or free air. The bones are unremarkable. No radiopaque foreign body is identified. RAD/Chest 1 View (Portable) IMPRESSION: No evidence of acute cardiopulmonary disease. Negative examination. Reading Location: [address] CC: ED PHYSICIAN PROVIDER; No Primary Care Physician Industrial Accountant: Signed Normal [facility] Emergency Department Summary on 12-30-2024 Emergency Department Summary [facility] Records Department [address] [place] [id number] Emergency Department Summary 12/30/24 MR#: [id number] Acct: [id number] Name: ELZA ROSAS Rep #: [id number] : 1975 49 From: Srikanth Lizama MD PCP: Care Physician,No Primary Status:PRE ER Location: ED HPI HPI - URI History of Present Illness Chief Complaint: Cold Sx Informant: patient Narrative Narrative: 49-year-old female with a history of asthma, has been ill for 3 days with fevers, chills, headaches, myalgias, malaise, lots of coughing along with some posttussive emesis to the point where she stopped drinking fluids because she is tired of vomiting, but she denies any nausea. She is having upper abdominal discomfort because of all of the coughing, she feels like she is bruised all over and the inside. 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 She denies being diabetic. [facility] ED Constitutional Constitutional ED: Reports body ache(s), chills, fatigue, fever(s), headache(s) and malaise Eyes Eyes: Denies change in vision or diplopia ENT ENT ED: Reports headache(s), nasal congestion and rhinorrhea; Denies ear pain or sore throat Cardiovascular Cardiovascular: Denies chest pain or palpitations Respiratory/Chest Respiratory/Chest: Reports cough, dyspnea, dyspnea on exertion and wheezing Gastrointestinal Gastrointestinal: Reports vomiting and other Details: Diffuse upper abdominal pain/soreness from coughing/posttussive emesis ; Denies diarrhea or nausea Genitourinary Genitourinary ED: Denies dysuria or hematuria Musculoskeletal Musculoskeletal: Denies back pain or neck pain Integumentary Denies abscess or rash Neurologic Neurologic: Reports headache(s); Denies paresthesias or weakness PFSH PFSH Medical History Asthma Smoker Anxiety Depression Home Medications ???Medication ???Instructions ???Recorded ???Last Taken ???Type oxycodone-acetaminophe n 5 mg-325 1 tab PO Q6H 3 days #12 tabs 08/15 Unknown Rx mg tablet (Percocet) gabapentin 100 mg capsule 100 mg PO QHS #7 caps 08/16/24 Unk nown Rx ibuprofen 600 mg tablet 600 mg PO Q6H PRN pain #20 tabs Unknown Rx ondansetron 4 mg disintegrating 4 mg PO Q8H PRN PRN Nausea #10 tab s 08/16/24 Unknown Rx tablet albuterol sulfate 90 mcg/actuation 1 - 2 puff inhalation Q4H PRN MO N 12/30/24 Unknown Rx aerosol inhaler (Ventolin HFA) Wheezing ##1 prednisone 20 mg tablet 40 mg (2 x 20 mg) PO DAILY 6 days 12/30/24 Unknown Rx #12 tabs Allergy/AdvReac Type Severity Reaction Status Date / Time No Known Allergies Allergy Verified 12/30/24 15:21 Surgical History History of delivery Social History household members: children Smoking Status: Heavy Smoker (>10/day) substance use type: does not use EXAM Physical Exam Const Vital Signs: 12/30/24 15:22 12/30/24 15:23 12/30/24 15:23 Temperature 97.5 F L Temperature Source Temporal Pulse Rate 79 Respiratory Rate 16 12 Blood Pressure 166/103 H Blood Pressure Mean 124 Pulse Ox 95 94 95 Oxygen Delivery Method Room Air Room Air Room Air 12/30/24 17:21 Temperature Temperature Source Pulse Rate 84 Respiratory Rate 15 Blood Pressure 176/99 H Blood Pressure Mean 124 Pulse Ox 94 Oxygen Delivery Method Room Air Positive well nourished, well developed and obese Constitutional Narrative: no distress General Appearance ED: well developed and NAD Nutritional Appearance: obese HEENT Reports moist mucous membranes normocephalic and atraumatic Eyes PERRL and EOMs intact bilaterally Neck full ROM, supple and no meningeal signs Resp normal respiratory effort Resp Narrative: Diffuse expiratory wheezes and prolonged expiratory phase, no distress or accessory muscle use. No rales or rhonchi. Conversive in full sentences. Cardio regular rate, regular rhythm and no murmurs Rate: Negative for tachycardic GI non-tender and non-distended Auscultation: normoactive bowel sounds Palpation: soft Back/Spine no CVA tenderness General Back: other FROM Extremity normal to inspection and no calf tenderness General Extremety ED: Negative for edema, pulses abnormal or tenderness General Extremity: Negative for edema or pulses abnormal Neuro oriented x3, CN's II-XII intact bilaterally and no sensory deficits noted Sensorium / Orientation: awake and alert Motor Exam: strength 5/5 throughout Psych Mood Affect: anxious Skin no rashes or lesions noted and no wounds MDM MDM MDM Narrative Medical decision making narrative: 1 view c (more content not included)... Normal [facility] Influenza virus A and B and SARS-CoV-2 (COVID-19) and Respiratory syncytial virus RNAOrdered By: Srikanth Lizama on 12-30-2024 SARS-CoV-2 (COVID-19) RNA REMY+probe Ql (Unsp spec) RSV Abnormal [facility] M100.678on 12-30-2024 M100.678 SARS-CoV-2 (COVID 19 ) Negative INFLUENZA A Negative INFLUENZA B Negative RSV PCR A Positive A RSV Normal [facility] Comment on above: Performed By: #### M 100.678 #### [facility] [address] [place], [address] CVFLURVon 09-06-2024 FLU A PCR Negative Normal Negative [facility] Comment on above: Performed By: #### S TREPA, CVFLURV #### [address] [place], [place] [address] FLU B PCR Negative Normal Negative [facility] Comment on above: Performed By: #### S TREPA, CVFLURV #### [address] [address] RSV PCR Negative Normal Negative [facility] Comment on above: Performed By: #### S LEON CVFLURV #### [address] [address] SARS-CoV-2 (COVID-19) RNA REMY+probe Ql (Unsp spec) Negative Normal Negative [facility] Comment on above: Result Comment: Resu lts from the Xpert Xpress CoV-2/Flu/RSV plus test should be correlated with the clinical history, epidemiological data, and other data available to the clinical evaluating the patient. Performance of the Xpert Xpress CoV-2/Flu/RSV plus test has only been established in nasopharyngeal swab specimen. Erroneous test results might occur from improper specimen collection, failure to follow the recommended sample collection, handling and storage procedures, technical error, or sample mix-up. False negative results may occur if a virus is present at a level below the analytical limit of detection. Viral nucleic acid may persist in vivo, independent of virus viability. Detection of analyte target(s) does not imply that the corresponding virus(es) are infectious or are the causative agents for clinical symptoms. Recent patient exposure to FluMist or other live attenuated influenza vaccines may cause inaccurate positive results. Performed By: #### S TREROVERTO CVFLURV #### [address] [address] LABORATORYOrdered By: Virginie Mancia on 09-06-2024 FLUAV RNA REMY+probe Ql (Resp) Negative (09/06/24 4:11 PM) Normal Negative AO Auto Urine SS FLUBV RNA REMY+probe Ql (Resp) Negative (09/06/24 4:11 PM) Normal Negative AO Auto Urine SS Group A Strep PCR Int Negative Results: Negative for Streptococcus pyogenes by PCR. A negative test result does not exclude the possibility of infection because the test result may be affected by improper specimen collection, technical error, sample mix-up, or because the number of organisms in the sample is below the limit of detection of the test.The Xpert Xpress Strep A test should not be used as the sole basis for treatment or other patient management decisions. The Xpert Xpress Strep A test does not differentiate asymptomatic carriers of Group A streptococci from those exhibiting streptococcal infection. The results from the Xpert Xpress Strep A test should be interpreted in conjunction with other laboratory and clinical data available to the clinician.The Xpert Xpress Strep A Assay is a real-time polymerase chain reaction (PCR) based qualitative in vitro diagnostic test for the direct detection of Streptococcus pyogenes (Group A Beta hemolytic Streptococcus) in throat swab specimens from patients with signs and symptoms of pharyngitis.The assay is not intended to monitor treatment for Group A Streptococcus infections. Invalid Interpretation Code AO Auto Urine SS RSV RNA REMY+probe Ql (Resp) Negative (09/06/24 4:11 PM) Normal Negative AO Auto Urine SS S. pyogenes DNA REMY+probe Ql (Throat) Not Detected (09/06/24 4:11 PM) Normal Not Detected AO Auto Urine SS SARS-CoV-2 (COVID-19) RNA REMY+probe Ql (Resp) Negative 1 (09/06/24 4:11 PM) Normal Negative AO Auto Urine SS Comment on above: Interpretive Data: R esults from the Xpert Xpress CoV-2/Flu/RSV plus test should be correlated with the clinical history, epidemiological data, and other data available to the clinical evaluating the patient. Performance of the Xpert Xpress CoV-2/Flu/RSV plus test has only been established in nasopharyngeal swab specimen. Erroneous test results might occur from improper specimen collection, failure to follow the recommended sample collection, handling and storage procedures, technical error, or sample mix-up. False negative results may occur if a virus is present at a level below the analytical limit of detection. Viral nucleic acid may persist in vivo, independent of virus viability. Detection of analyte target(s) does not imply that the corresponding virus(es) are infectious or are the causative agents for clinical symptoms. Recent patient exposure to FluMist or other live attenuated influenza vaccines may cause inaccurate positive results. STREPAon 09-06-2024 Group A Strep PCR Not detected Normal Not Detected [facility] Comment on above: Performed By: #### S TREROVERTO CVFLURV #### [employer] [address] [address] Group A Strep PCR Int Normal [facility] Comment on above: Result Comment: Nega tive Results: Negative for Streptococcus pyogenes by PCR. A negative test result does not exclude the possibility of infection because the test result may be affected by improper specimen collection, technical error, sample mix-up, or because the number of organisms in the sample is below the limit of detection of the test. The Xpert Xpress Strep A test should not be used as the sole basis for treatment or other patient management decisions. The Xpert Xpress Strep A test does not differentiate asymptomatic carriers of Group A streptococci from those exhibiting streptococcal infection. The results from the Xpert Xpress Strep A test should be interpreted in conjunction with other laboratory and clinical data available to the clinician. The Xpert Xpress Strep A Assay is a real-time polymerase chain reaction (PCR) based qualitative in vitro diagnostic test for the direct detection of Streptococcus pyogenes (Group A Beta hemolytic Streptococcus) in throat swab specimens from patients with signs and symptoms of pharyngitis. The assay is not intended to monitor treatment for Group A Streptococcus infections. See Interp Performed By: #### S TREROVERTO CVFLURV #### [employer] [address] [address] XR CHEST 2 VIEWSon 4 XR CHEST 2 VIEWS ORIGINAL EXAMINATION: TWO XRAY VIEWS OF THE CHEST 09/06/2024 4:37 pm COMPARISON: None. HISTORY: ORDERING SYSTEM PROVIDED HISTORY: Reason for Exam: cough, sob FINDINGS: Cardiomediastinal contours normal. No focal consolidation or pulmonary edema. No pneumothorax or pleural effusion. No acute osseous abnormality. IMPRESSION: No focal consolidation. I have personally reviewed the images of this examination and agree with the resident's findings and interpretation. Interpreted by: Chas Cheung Preliminary Report By: Cricket Hodgson Electronically signed By Chas Cheung Dictated Date: 09/06/2024 4:46:12 PM Prelim Date: 09/06/2024 4:47:18 PM Sign Date: 09/06/2024 5:13:45 PM Ordering Provider: AMBAR Dent [facility] BNP,B-Type NATRIURETIC PEPTI Miguel 08-16-2024 Natriuretic peptide B (Bld) [Mass/Vol] 16.4 pg/mL Normal 0-100 [facility] Comment on above: Performed By: #### L 100.0100, L501.4020, L500.4050, L503.6620 #### [facility] [address] [place], [address] CBC W/Diff, Automatedon 08-01 Absolute Lymph 2.53 X10 3/uL Normal 0.83-4.51 [facility] Comment on above: Performed By: #### L 100.0100, L501.4020, L500.4050, L503.6620 #### [facility] [address] [place], [address] Absolute Neut 7.3 X10 3/uL Normal 2.0-7.7 [facility] Comment on above: Performed By: #### L 100.0100, L501.4020, L500.4050, L503.6620 #### [facility] [address] [place], [address] Basophils/100 WBC (Bld) 0.3 % Normal 0-1 [facility] Comment on above: Performed By: #### L 100.0100, L501.4020, L500.4050, L503.6620 #### [facility] [address] [place], [address] Eosinophils/100 WBC (Bld) 2.4 % Normal 0-5 [facility] Comment on above: Performed By: #### L 100.0100, L501.4020, L500.4050, L503.6620 #### [facility] [address] [place], [address] Erythrocyte distribution width (RBC) [Ratio] 13.9 % Normal 11.6-14.6 [facility] Comment on above: Performed By: #### L 100.0100, L501.4020, L500.4050, L503.6620 #### [facility] [address] [place], [address] Hematocrit (Bld) [Volume fraction] 42.5 % Normal 37-47 [facility] Comment on above: Performed By: #### L 100.0100, L501.4020, L500.4050, L503.6620 #### [facility] [address] [place], [address] Hemoglobin (Bld) [Mass/Vol] 14.1 g/dL Normal 12.0-15.0 [facility] Comment on above: Performed By: #### L 100.0100, L501.4020, L500.4050, L503.6620 #### [facility] [address] [place], [address] IG% 0.500 Normal 0.0-0.9 [facility] Comment on above: Result Comment: IG% - Immature Granulocytes (promyelocytes, myelocytes and metamyelocytes) > 1% indicates that a LEFT SHIFT is Present. Performed By: #### L 100.0100, L501.4020, L500.4050, L503.6620 #### [facility] [address] [place], [address] Lymphocytes/100 WBC (Bld) 23.6 % Normal 19-41 [facility] Comment on above: Performed By: #### L 100.0100, L501.4020, L500.4050, L503.6620 #### [facility] [address] [place], [address] MCH (RBC) [Entitic mass] 29.7 pg Normal 27.0-32.0 [facility] Comment on above: Performed By: #### L 100.0100, L501.4020, L500.4050, L503.6620 #### [facility] [address] [place], [address] MCHC (RBC) [Mass/Vol] 33.2 g/dL Normal 32-36 [facility] Comment on above: Performed By: #### L 100.0100, L501.4020, L500.4050, L503.6620 #### [facility] [address] [place], [address] MCV (RBC) [Entitic vol] 89.7 fL Normal 81-99 [facility] Comment on above: Performed By: #### L 100.0100, L501.4020, L500.4050, L503.6620 #### [facility] [address] [place], [address] Monocytes/100 WBC (Bld) 4.7 % Normal 0-10 [facility] Comment on above: Performed By: #### L 100.0100, L501.4020, L500.4050, L503.6620 #### [facility] [address] [place], [address] Neutrophils/100 WBC (Bld) 68.5 % Normal 47-70 [facility] Comment on above: Performed By: #### L 100.0100, L501.4020, L500.4050, L503.6620 #### [facility] [address] [place], [address] Nucleated RBC (Bld) [#/Vol] 0 10*3/uL Normal 0-5 [facility] Comment on above: Performed By: #### L 100.0100, L501.4020, L500.4050, L503.6620 #### [facility] [address] [place], [address] Platelet mean volume (Bld) [Entitic vol] 10.9 fL Normal 6.2-12.0 [facility] Comment on above: Performed By: #### L 100.0100, L501.4020, L500.4050, L503.6620 #### [facility] [address] [place], [address] Platelets (Bld) [#/Vol] 198 10*3/uL Normal 150-450 [facility] Comment on above: Performed By: #### L 100.0100, L501.4020, L500.4050, L503.6620 #### [facility] [address] [place], [address] RBC (Bld) [#/Vol] 4.74 10*6/uL Normal 4.2-5.4 [facility] Comment on above: Performed By: #### L 100.0100, L501.4020, L500.4050, L503.6620 #### [facility] [address] [place], [address] RDW SD 45.0 fl High 35.1-43.9 [facility] Comment on above: Performed By: #### L 100.0100, L501.4020, L500.4050, L503.6620 #### [facility] [address] [place], [address] WBC (Bld) [#/Vol] 10.7 10*3/uL Normal 4.4-11.0 [facility] Comment on above: Performed By: #### L 100.0100, L501.4020, L500.4050, L503.6620 #### [facility] [address] [place], [address] Chest PA and Lateralon 08-16 Chest PA and Lateral [facility] Services [address] [place] [address] Chest PA and Lateral MR#: [id number] Acct: [id number] Name: ELZA ROSAS Rep #: [id number] : 1975 F 49 From: Héctor baum MD PCP: Care Physician,No Primary Status: REG ER Study: Chest PA and Lateral Date of Exam: 08/16/24 Exam# [id number] Ordering Dr: Maddy Stark DO [id number] INDICATION: chest pain, edema EXAMINATION/TECHNIQUE: X-RAY - XR Chest 2 Views COMPARISON: 12/10/2021. FINDINGS: The lungs are clear. The cardiomediastinal silhouette is unremarkable. No pleural effusion or pneumothorax. Degenerative changes of the thoracic spine. RAD/Chest PA and Lateral IMPRESSION: No acute radiographic abnormalities. Electronically Signed: Héctor Ball MD at 19:30 EDT , CC: Dr. Maddy Stark DO; No Primary Care Physician Industrial Accountant: Signed Normal [facility] Comprehensive Metabolic Prof cton 08-16-2024 Albumin [Mass/Vol] 3.2 g/dL Normal 3.2-5.0 [facility] Comment on above: Order Comment: 'TROP ' Serial specimen #1, #2 or #3: 1 Performed By: #### L 100.0100, L501.4020, L500.4050, L503.6620 #### [facility] [address] [place], [address] Albumin/Globulin [Mass ratio] 0.7 {ratio} Low 0.9-2.4 [facility] Comment on above: Order Comment: 'TROP ' Serial specimen #1, #2 or #3: 1 Performed By: #### L 100.0100, L501.4020, L500.4050, L503.6620 #### [facility] [address] [place], [address] ALK P 60 U/L Normal 45-117 [facility] Comment on above: Order Comment: 'TROP ' Serial specimen #1, #2 or #3: 1 Performed By: #### L 100.0100, L501.4020, L500.4050, L503.6620 #### [facility] [address] [place], [address] ALT [Catalytic activity/Vol] 19 U/L Normal 13-56 [facility] Comment on above: Order Comment: 'TROP ' Serial specimen #1, #2 or #3: 1 Performed By: #### L 100.0100, L501.4020, L500.4050, L503.6620 #### [facility] [address] [place], [address] AST [Catalytic activity/Vol] 17 U/L Normal 15-37 [facility] Comment on above: Order Comment: 'TROP ' Serial specimen #1, #2 or #3: 1 Performed By: #### L 100.0100, L501.4020, L500.4050, L503.6620 #### [facility] [address] [place], [address] Bilirubin [Mass/Vol] 0.30 mg/dL Normal 0.20-1.00 [facility] Comment on above: Order Comment: 'TROP ' Serial specimen #1, #2 or #3: 1 Result Comment: For patients on eltrombopag therapy, use of Dimension [place] TBIL is not recommended. Performed By: #### L 100.0100, L501.4020, L500.4050, L503.6620 #### [facility] [address] [place], [address] BUN/CRE 12.1 RATIO Normal 10-20 [facility] Comment on above: Order Comment: 'TROP ' Serial specimen #1, #2 or #3: 1 Performed By: #### L 100.0100, L501.4020, L500.4050, L503.6620 #### [facility] [address] [place], [address] CA,Total 9.2 mg/dL Normal 8.5-10.1 [facility] Comment on above: Order Comment: 'TROP ' Serial specimen #1, #2 or #3: 1 Performed By: #### L 100.0100, L501.4020, L500.4050, L503.6620 #### [facility] [address] [place], [address] Chloride [Moles/Vol] 102 mmol/L Normal 98-107 [facility] Comment on above: Order Comment: 'TROP ' Serial specimen #1, #2 or #3: 1 Performed By: #### L 100.0100, L501.4020, L500.4050, L503.6620 #### [facility] [address] [place], [address] CO2 [Moles/Vol] 28.0 mmol/L Normal 21.0-32.0 [facility] Comment on above: Order Comment: 'TROP ' Serial specimen #1, #2 or #3: 1 Performed By: #### L 100.0100, L501.4020, L500.4050, L503.6620 #### [facility] [address] [place], [address] Creatinine [Mass/Vol] 0.91 mg/dL Normal 0.55-1.02 [facility] Comment on above: Order Comment: 'TROP ' Serial specimen #1, #2 or #3: 1 Result Comment: The validity of the calculated GFR GFRAA in patients over 70 years has not been determined. Clinical correlation is essential. Performed By: #### L 100.0100, L501.4020, L500.4050, L503.6620 #### [facility] [address] [place], [address] ECRCL 104.68 ml/min Normal [facility] Comment on above: Order Comment: 'TROP ' Serial specimen #1, #2 or #3: 1 Performed By: #### L 100.0100, L501.4020, L500.4050, L503.6620 #### [facility] [address] [place], [address] EST GFR - AA 85 mL/min Normal >60 [facility] Comment on above: Order Comment: 'TROP ' Serial specimen #1, #2 or #3: 1 Result Comment: Afri can [place] GFR Calc Performed By: #### L 100.0100, L501.4020, L500.4050, L503.6620 #### [facility] [address] [place], [address] GAP 6 Normal 5-15 [facility] Comment on above: Order Comment: 'TROP ' Serial specimen #1, #2 or #3: 1 Performed By: #### L 100.0100, L501.4020, L500.4050, L503.6620 #### [facility] [address] [place], [address] GFR/1.73 sq M.predicted among non-blacks MDRD (S/P/Bld) [Vol rate/Area] 70 mL/min/{1.73_m2} Normal >60 [facility] Comment on above: Order Comment: 'TROP ' Serial specimen #1, #2 or #3: 1 Result Comment: Non- GFR Calc Performed By: #### L 100.0100, L501.4020, L500.4050, L503.6620 #### [facility] [address] [place], [address] Globulin (S) [Mass/Vol] 4.5 g/dL High 2.2-4.2 [facility] Comment on above: Order Comment: 'TROP ' Serial specimen #1, #2 or #3: 1 Performed By: #### L 100.0100, L501.4020, L500.4050, L503.6620 #### [facility] [address] [place], [address] Glucose [Mass/Vol] 129 mg/dL High 74-106 [facility] Comment on above: Order Comment: 'TROP ' Serial specimen #1, #2 or #3: 1 Result Comment: Fast ing Glucose result greater than or equal to 126 mg/dL suggests DIABETES MELLITUS per A.D.A. criteria. Performed By: #### L 100.0100, L501.4020, L500.4050, L503.6620 #### [facility] [address] [place], [address] Potassium [Moles/Vol] 3.9 mmol/L Normal 3.5-5.1 [facility] Comment on above: Order Comment: 'TROP ' Serial specimen #1, #2 or #3: 1 Performed By: #### L 100.0100, L501.4020, L500.4050, L503.6620 #### [facility] [address] [place], [address] Sodium [Moles/Vol] 136 mmol/L Normal 136-145 [facility] Comment on above: Order Comment: 'TROP ' Serial specimen #1, #2 or #3: 1 Performed By: #### L 100.0100, L501.4020, L500.4050, L503.6620 #### [facility] [address] [place], [address] T PROT 7.7 g/dL Normal 6.4-8.2 [facility] Comment on above: Order Comment: 'TROP ' Serial specimen #1, #2 or #3: 1 Performed By: #### L 100.0100, L501.4020, L500.4050, L503.6620 #### [facility] [address] [place], [address] Urea nitrogen [Mass/Vol] 11 mg/dL Normal 7-18 [facility] Comment on above: Order Comment: 'TROP ' Serial specimen #1, #2 or #3: 1 Performed By: #### L 100.0100, L501.4020, L500.4050, L503.6620 #### [facility] [address] [place], [address] Emergency Department Summary on 08-16-2024 Emergency Department Summary [facility] Medical Records Department [address] [place] [address] Emergency Department Summary 08/16/24 MR#: [id number] Acct: [id number] Name: ELZA ROSAS Rep #: [id number] : 1975 49 From: Maddy Stark DO PCP: Care Physician,No Primary Status:DEP ER Location: ED HPI History of Present Illness Chief Complaint: Dental Informant: patient Narrative Narrative: Patient is a 49-year-old female with history of regular tobacco use presenting with worsening pain and swelling in her left lower jaw. Patient's states this is her third ER visit for this. She was seen on 08/05 and placed on a course of amoxicillin. The day after she finished that she felt her symptoms worsen and was seen yesterdayWhere she reported worsening of her symptoms again. Was prescribed Augmentin and given Percocet for pain. Instructed to take Motrin 600 mg every 6 hours as well. She states her symptoms having continued to worsen. She states she is now having numbness between her chin and below her ear on her jaw. At this is on the left. She is worried she has an abscess. She also notes when she woke up her ankles were swollen and she has a mild amount of chest discomfort. She feels mildly short of breath. She states the medicines are not helping with her pain. Denies any fevers. Does report she feels itchy. States has ever had this reaction before. Is not reporting any drooling. No other complaints or concerns at this time. [facility] Medical History Asthma Smoker Anxiety Depression Home Medications ???Medication ???Instructions ???Recorded ???Last Taken ???Type amoxicillin 875 mg-potassium 1 tab PO Q12H 14 days #28 tabs 08/15/24 Unknown Rx clavulanate 125 mg tablet oxycodone-acetaminophe n 5 mg-325 1 tab PO Q6H 3 days #12 tabs 08/15/24 Unknown Rx mg tablet (Percocet) gabapentin 100 mg capsule 100 mg PO QHS #7 caps 08/16/24 Unknown Rx ibuprofen 600 mg tablet 600 mg PO Q6H PRN pain #20 tabs 08/16/24 Unknown Rx ondansetron 4 mg disintegrating 4 mg PO Q8H PRN PRN Nausea #10 tabs 08/16/24 Unknown Rx tablet Allergy/AdvReac Type Severity Reaction Status Date / Time No Known Allergies Allergy Verified 08/16/24 17:04 Surgical History History of delivery Social History household members: children Smoking Status: Heavy Smoker (>10/day) substance use type: does not use ROS ROS ED Constitutional Constitutional ED: Denies fever(s) ENT ENT ED: Reports other Details: Left lower dental pain and swelling Cardiovascular Cardiovascular: Reports chest pain Respiratory/Chest Respiratory/Chest: Denies cough Gastrointestinal Gastrointestinal: Reports nausea; Denies vomiting Musculoskeletal Musculoskeletal: Reports neck pain; Denies arthralgias or myalgias Integumentary Denies rash Neurologic Neurologic: Reports headache(s) and paresthesias; Denies weakness Psychiatric Psychiatric: Reports anxiety Hematologic/Lymphatic Hematologic/Lymphatic: Denies easy bleeding or easy bruising EXAM Physical Exam Const Vital Signs: 08/16/24 17:03 08/16/24 18:23 08/16/24 21:03 Temperature 98.8 F 97.6 F L Temperature Source Temporal Temporal Pulse Rate 89 103 H 67 Respiratory Rate 16 20 H 16 Blood Pressure 182/107 H 187/103 H Blood Pressure Mean 132 131 Pulse Ox 100 100 94 Oxygen Delivery Method Room Air Room Air Room Air 08/17/24 00:04 Temperature 97.8 F Temperature Source Pulse Rate 81 Respiratory Rate 17 Blood Pressure 135/81 H Blood Pressure Mean 99 Pulse Ox 92 Oxygen Delivery Method Positive well nourished and well developed General Appearance ED: well developed and NAD HEENT Reports TM's clear HEENT Narrative: Tenderness and soft tissue swelling noted of the left mandibular area. No obvious abscess appreciated but there is swelling of the periosteal/buccal surface near the left premolars. Sublingual mucosa is soft. Multiple missing and carried teeth present. Tympanic Membrane ED: Yes TM's clear Throat: posterior oropharynx normal Eyes PERRL and EOMs intact bilaterally Neck supple Neck Narrative: Tenderness palpation of the left submandibular region. General: tenderness and submandibular swelling Chest Wall inspection of chest normal and palpation of chest normal Resp normal respiratory effort and clear to auscultation bilaterally Cardio regular rate and regular rhythm GI normal to inspection, nondistended, normoactive bowel sounds and non-tender Extremity normal to inspection Extremity Narrative: Trace pain edema of the lower extremities General Extremety ED: Yes edema General (more content not included)... Normal [facility] L501.4020on 08-16-2024 TROPONIN-I HS 5 pg/mL Normal 3.0-54.0 [facility] Comment on above: Order Comment: 'TROP ' Serial specimen #1, #2 or #3: 1 Result Comment: Plea se Note: New Test Units and Gender Specific Reference Ranges. For more information see Policy Stat Procedure [place] High Sensitivity Troponin (TNIH) and attachments. Performed By: #### L 100.0100, L501.4020, L500.4050, L503.6620 #### [facility] [address] [place], [address] Soft Tissue Neck WITH Contra ston 08-16-2024 Soft Tissue Neck WITH Contrast [facility] Services [address] [place] [address] Soft Tissue Neck WITH Contrast MR#: [id number] Acct: [id number] Name: ELZA ROSAS Rep #: [id number] : 1975 F 49 From: Héctor baum MD PCP: Care Physician,No Primary Status: REG ER Study: Soft Tissue Neck WITH Contrast Date of Exam: 0 08/16/24 Exam# [id number] Ordering Dr: Maddy Stark DO [id number] INDICATION: left jaw pain and swelling EXAMINATION: CT NECK WITH CONTRAST - CT Soft Tissue Neck W/ Contrast Injection TECHNIQUE: Helically acquired images were obtained of the neck following IV contrast. A radiation dose optimization technique was used for this scan. IV Contrast dosage and agent: 75 cc [id number] COMPARISON: None. FINDINGS: NASOPHARYNX: Unremarkable. SUPRAHYOID NECK: Unremarkable oropharynx, oral cavity, parapharyngeal space, and retropharyngeal space. INFRAHYOID NECK: Unremarkable larynx, hypopharynx, and supraglottis. THYROID: No focal lesions. SALIVARY GLANDS: Unremarkable. LYMPH NODES: Left cervical lymphadenopathy. VASCULAR STRUCTURES: Unremarkable. VISUALIZED PORTIONS OF THE ORBITS, PARANASAL SINUSES, MASTOID AIR CELLS AND SKULL BASE: Unremarkable. BONES/SOFT TISSUES: There is a 5 x 2 mm rim-enhancing fluid collection adjacent to the left mandibular angle and contiguous with a periapical lucency involving the left mandibular premolar.. There is surrounding fat stranding. THORACIC INLET: Clear lung apices. CT/Soft Tissue Neck WITH Contrast IMPRESSION: 5 mm left buccal abscess contiguous with a dental abscess of the left mandibular premolar. Electronically Signed: Héctor Ball MD at 19:17 EDT , CC: Dr. Maddy Stark DO; No Primary Care Physician Industrial Accountant: Signed Normal [facility] Emergency Department Summary on 08-15-2024 Emergency Department Summary [facility] Medical Records Department [address] [place] [address] Emergency Department Summary 08/15/24 MR#: [id number] Acct: [id number] Name: ELZA ROSAS Rep #: [id number] : 1975 49 From: Chema Willis DO PCP: Care Physician,No Primary Status:DEP ER Location: ED HPI History of Present Illness Chief Complaint: Dental Narrative Narrative: Chief complaint and HPI: Dental pain. 49-year-old female with no significant past medical history presents for evaluation of left lower tooth pain. Patient states that she was just recently seen in our emergency department earlier this month for it. She states she was diagnosed with a dental infection and placed on amoxicillin. She states that her fevers resolved. She states that her pain mildly improved but then worsened yesterday after finishing antibiotics. Patient has not followed up or call the dentist. She admits that she has not seen a dentist in 3 years. She describes this pain as throbbing and radiates to the left side of her face. Uses tobacco. Has been taking Tylenol and NSAIDs with minimal relief. Denies current fever, chills, shortness of breath, chest pain, difficulty swallowing, numbness/tingling, headache, blurry vision. Review of systems: See HPI Medications: As listed on the chart Allergies: As listed on the chart PFSH: Per chart Vital signs: As listed on the chart. Reviewed. Physical exam: Gen: A O x3, NAD Head: Normocephalic, atraumatic Eyes: No sclera icterus, conjunctiva clear, PERRL, EOMI ENT: TMs clear BL, moist mucous membranes, tolerating secretions, posterior oropharynx unremarkable, uvula midline, tonsils not enlarged, no tonsillar exudates, no submandibular or tongue swelling, no Jacques angina, patient has very poor dentition with broken teeth and dental caries, inflamed gingiva, no palpable or visualized abscess, patient's pain is located in her second premolar and first molar. She has a dental cavity in these teeth. Teeth are tender to touch Neck: Trachea midline, No JVD, Full ROM, No meningismus, no swelling CV: RRR, no murmurs, no peripheral edema Resp: Lungs CTA BL, no w/r/c Musc: Full ROM, no deformity Skin: Warm, dry Neuro: Alert, oriented, grossly intact, sensation intact Psych: Cooperative, appropriate mood and affect [facility] Medical History Asthma Smoker Anxiety Depression Home Medications ???Medication ???Instructions ???Recorded ???Last Taken ???Type amoxicillin 875 mg-potassium 1 tab PO Q12H 14 days #28 tabs 08/15/24 Unknown Rx clavulanate 125 mg tablet oxycodone-acetaminophe n 5 mg-325 1 tab PO Q6H 3 days #12 tabs 08/15/24 Unknown Rx mg tablet (Percocet) Allergy/AdvReac Type Severity Reaction Status Date / Time No Known Allergies Allergy Verified 08/15/24 06:47 Surgical History History of delivery Social History household members: children Smoking Status: Heavy Smoker (>10/day) substance use type: does not use EXAM Physical Exam Const Vital Signs: 08/15/24 06:46 08/15/24 06:50 08/15/24 07:55 Temperature 97.8 F 97.8 F 97.5 F L Temperature Source Temporal Temporal Pulse Rate 72 72 71 Respiratory Rate 18 16 18 Blood Pressure 210/103 H 210/103 H 187/107 H Blood Pressure Mean 138 138 133 Pulse Ox 98 98 96 Oxygen Delivery Method Room Air Room Air MDM MDM MDM Narrative Medical decision making narrative: 49-year-old female presents for evaluation of dental pain. Patient has very poor dentition with broken teeth and dental caries. She was seen previously in our emergency department. Record was reviewed. At that time she was placed on amoxicillin and hydrocodone/acetaminop hen. Patient denies any systemic symptoms such as fever, chills, nausea, vomiting. No Jacques angina. She is nontoxic. Afebrile. She has hypertensive which I suspect is secondary to her pain. No abscess seen on physical exam. Patient needs to follow-up with a dentist. She was educated thoroughly on this. I did supply her with a sheet of local dentist. She was told that she needs to call to make an appointment as soon as possible. Will give IM Toradol here for pain. Will broaden coverage with Augmentin. Prescribed Percocet. I explained to her that ibuprofen will be the best medication to control her pain. She was educated on dosing. After pain medication, patient's blood pressure did improve. She still hypertensive. But again, given that she is still in pain this is likely the source. Patient is asymptomatic otherwise from her hypertension. Patient is stable to discharge home. Follow-up with dentist. Return precautions explained. She confirmed understanding. (more content not included)... Normal [facility] Emergency Department Summary on 08-05-2024 Emergency Department Summary [facility] Medical Records Department [address] [place] [address] Emergency Department Summary 08/05/24 MR#: [id number] Acct: [id number] Name: ELZA ROSAS Rep #: [id number] : 1975 49 From: Maikel Gonzalez MD PCP: Care Physician,No Primary Status:DEP ER Location: ED HPI History of Present Illness Chief Complaint: Dental Narrative Narrative: 49-year-old female who denies significant past medical history presents with pain in her tooth that she has had for the last 4 days. Domonique left lower jaw. She states she saw dentist a few months ago and had a Placed, but it fell off. She has a temporary filling. She is a smoker. She has been taking [id number] medications including NSAIDs without relief of her symptoms. She denies fevers or chills, no other symptoms. She has pain in her left lower jaw from a carious tooth. [facility] Medical History Asthma Smoker Anxiety Depression Home Medications ???Medication ???Instructions ???Recorded ???Last Taken ???Type amoxicillin 500 mg tablet 500 mg PO TID #21 tabs 08/05/24 Unknown Rx hydrocodone-acetaminop hen 5-325mg 1 tab PO Q6H 2 days #6 TABLETS 08/05/24 Unknown Rx 5mg-325mg Allergy/AdvReac Type Severity Reaction Status Date / Time No Known Allergies Allergy Verified 08/05/24 04:09 Surgical History History of delivery Social History household members: children Smoking Status: Heavy Smoker (>10/day) substance use type: does not use ROS ROS ED ROS Narrative Left lower jaw pain, left tooth pain and bicuspid tooth. No fevers or chills, no nausea or vomiting. No chest pain or shortness of breath. EXAM Physical Exam Narrative Exam Narrative: Afebrile. Vital signs noted. Focused physical examination reveals carious tooth in the bicuspid area of the left lower jaw. No drooling or trismus. No Jacques angina. No angioedema of the tongue. No gingival abscess. Cardiovascular examination regular rate and rhythm, lungs are clear to auscultation bilaterally. Abdomen soft nontender with normal active bowel sounds. Const Vital Signs: 08/05/24 04:10 08/05/24 04:12 08/05/24 04:36 Temperature 97.6 F L 97.6 F L 97.8 F Temperature Source Temporal Temporal Pulse Rate 74 74 78 Respiratory Rate 18 16 16 Blood Pressure 226/119 H 226/119 H 183/88 H Blood Pressure Mean 154 154 119 Pulse Ox 98 98 99 Oxygen Delivery Method Room Air Room Air MDM MDM MDM Narrative Medical decision making narrative: Patient noted to have elevated blood pressure in the emergency department. She is asymptomatic with this. I discussed smoking cessation with her but she states that she is not going to quit because she enjoys it. I do feel that she may have an acute pulpitis so she will be started on amoxicillin. She drove herself here. I reviewed her prior records and she has been seen in the past and did receive 6 [place] tablets the last time she was here and back in 2020. I wrote her a prescription for amoxicillin 500 mg to take 3 times a day for the next week, and for the 6 [place] tablets. She was also told to keep an eye on her blood pressure. Upon repeat check, her systolic blood pressure is 183, and her diastolic is down to 88. In review of her previous blood pressures, this is around her baseline. At this point in time, I feel she can be discharged to follow-up with a dentist and a primary care provider. Return instructions reviewed. Disposition is discharged home in stable condition. History Record Review Discussion w/independent historian: Patient Additional record(s) reviewed:: Prior ED visit and Other ([facility] report) Discharge Plan Triage Chief Complaint: Dental ED Provider: Maikel Gonzalez Dx/Rx/DC Orders Clinical Impression: Pain due to dental caries, Elevated blood pressure reading Instructions: ED Dental Pain, ED Dental Cavity, ED Hypertension, To Be Confirmed Prescriptions: New amoxicillin 500 mg tablet 500 mg PO TID Qty: 21 0RF hydrocodone-acetaminop hen 5-325 mg tablet 1 tab PO Q6H 2 Days Qty: 6 0RF Primary Care Provider: Care Physician,No Primary Referrals: Pruitt,Carlos, MD [Med Staff - Active Staff] - As soon as possible Care Physician,No Primary [Primary Care Provider] - Activity Restrictions/Additiona l Instructions: Keep an eye on your blood pressure. You may need to have this addressed soon. Return with symptoms of chest pain, shortness of breath, headache. See a dentist soon as possible. Stop smoking. Print Language: Hong Konger Disposition Disposition: Home, Self Care What to do if you have Problems For any increased pain, shortness of breath, bleeding, luis eduardo (more content not included)... Normal [facility] Office Visit Reporton 2023 Office Visit Report [facility] [address] [place] [address] OFFICE VISIT Date of Service: 02/18/24 MR#: [id number] Acct: [id number] Patient: ELZA ROSAS Rep #: [id number] : 1975 Provider: ROVERTO Schmidt Age/Sex: 49/F Location: [facility] Status: Signed Intake Vital Signs 12/02/23 13:32 Height 5 ft 7 in Intake Visit Reasons: PRE EMP/NON DOT/DRUG SCREEN/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: No Employer Ordered Physical: No Flu Test: No Functional Capacity Evaluation: No Glucose (Finger): No Hair Collection Drug Screen: No Hair Collection Only: No Hair Testing Extended (Opiates): No HCG: No Hearing (Audiogram) Test: No Non-DOT Breath Alcohol Test in ED: No Non-DOT Random Drug Screen: No Non-DOT Reasonable Suspicion: No On Site Service Call (min of 1 hr plus cost of drug screen): No Other DOT Drug Screen: No Other Non-DOT Drug Screen: No Post-Accident DOT Drug Screen (in ED director of personnel fee charged): No Post-Accident DOT Drug Screen in [facility]: No Post-Accident Non-DOT Breath Alcohol Test: No Post-Accident NON-DOT Drug Screen (director of personnel fee charged in ED): No Post-Accident NON-DOT Drug Screen in ED (director of personnel fee charged): No Post-Accident NON-DOT Drug Screen in [facility]: No Pre-Employment Drug Screen [facility]: No Pre-Employment Drug Screen: Yes Pre-Employment PE: No Random Consortium DOT (yearly plus drug testing fee): No Random Consortium Non-DOT (yearly plus drug testing fee): No Respirator Clearance (form only): No Respirator Fit Testing: No RSV/Flu Lizz: No Saliva Drug Screen: No Second Drug Screen: No Strep Lizz: No TB Test: No Tdap (over age 7): No Titmus Screening: No Vision Test: No Stress Test (conducted interpreted by a second cook and baker): No Occquant-Quantiferon: No 06/30/24 1508 Date Jamal Esteves Signature: Date (if applicable) CC: Normal [facility] ED Nursing Noteon 04-25-2023 ED Nursing Note Pt ambulated to bathroom. Initially dizzy, but able to walk unassisted. Darshana Webster, AMMON 04/24/23 2226 Normal [facility] CT HEAD WO IV CONTRASTon CT HEAD WO IV CONTRAST Patient Name: ELZA ROSAS : 1975 Exam Date/Time: 04/24/2023 21:19 Procedure: CT HEAD WO IV CONTRAST Ordering Provider: CANCINO NICHOLAS Reason For Exam: dizziness CT HEAD: Clinical Indication: 47-year-old; dizziness Imaging Technique: Multiple axial 3mm CT images of the head were obtained from the skull base to the vertex. Coronal and sagittal reconstructs were rendered. Dose reduction was employed with automated exposure control. Comparison: CT maxillofacial 01/29/2019 FINDINGS: No intracranial hemorrhage. No extra-axial fluid collection. Brain parenchyma and ventricle morphology appear within normal limits. The osseous structures appear intact. The globes are symmetric. The mastoid sinuses are pneumatized. No fluid in the middle ear. The sinuses visualized are pneumatized. IMPRESSION: No acute intracranial process. Report Dictated on Electronically Signed By: Mirian Rainey Electronically Signed Date/Time: 04/24/2023 9:27 PM EDT Normal [facility] ECG 12-LEADon 04-24-2023 ECG 12-LEAD IMPRESSION: Sinus rhythm Nonspecific intraventricular conduction delay Compared to ECG 08/12/2017 22:42:02 No significant changes Electronically Signed On 04-24-2023 21:02:29 EDT by Jorge Cancino [facility] ED Nursing Noteon 04-24-2023 ED Nursing Note Pt to ER with complaint of dizziness and nausea x 20min prior to arrival. States this happened to her last week, but today seems worse to pt. States she feels lightheaded like I might pass out, not room spinning. + nausea, no vomiting. States she was able to drive herself to ER. But feels worse when she looks down. Pt ambulatory on arrival with steady gait. Alert and oriented x 4. Skin warm and dry. Respirations even and unlabored. Pt answering all questions appropriately. Normal [facility] ED Provider Noteon 3 ED Provider Note Emergency Department Encounter [facility] ED Patient: Elza Rosas : 1975 Date of Evaluation: 04/24/2023 ED Provider: Jorge Cancino MD Note: I wore an N95 mask and gloves during this encounter. CHIEF COMPLAINT: Dizziness HPI: Elza Rosas is a 47 y.o. female with PMH per EMR including anxiety, asthma, depression, obesity, tobacco use, history of skull fracture, presents with concern for lightheadedness/dizzin ess. Patient reports beginning this evening she has had a lightheadedness/dizzin ess, describes feeling like she could faint, as well as room spinning sensation, symptoms absent at rest, present when changing position from sitting to standing, or with nonspecific movements, she endorses nausea without vomiting, denies loss of consciousness, fever chills, cough, chest pain, shortness of breath, ear pain, visual changes, numbness or weakness throughout the extremities, abdominal pain, recent surgery travel bedrest or hospitalization, hemoptysis, history malignancy, use of oral contraceptives, lower extremity swelling or calf pain, history of DVT or PE. Patient reports she had a similar episode of symptoms 1 week ago which resolved spontaneously. REVIEW OF SYSTEMS: Pertinent positives and negatives as per HPI. HISTORIES: PAST MEDICAL HISTORY: as per HPI SOCIAL HISTORY: Per EMR history of tobacco use, alcohol use MEDICATIONS: Nursing notes and EMR reviewed ALLERGIES: Nursing notes and EMR reviewed PHYSICAL EXAM: Vital signs: reviewed General: no apparent distress, well appearing Eyes: no conjunctival injection, eyes tracking HEENT: airway patent, mucous membranes moist RIGHT TM nonbulging nonerythematous RIGHT EAC non edematous No pain with pulling on RIGHT pinna No RIGHT mastoid tenderness LEFT TM nonbulging nonerythematous LEFT EAC non edematous No pain with pulling on LEFT pinna No LEFT mastoid tenderness Cardiovascular: regular rhythm, normal rate, symmetrical radial pulses palpable Respiratory: non-labored breathing, breath sounds clear, no wheezing crackles or rhonchi Gastrointestinal: soft, non-distended, non-tender throughout Extremities: no obvious deformity, non edematous bilateral lower extremities, no calf tenderness Integumentary: warm, dry Neurologic: Negative test of skew, no nystagmus 1A. Level of consciousness (0-3) = 0 1B. LOC Questions (0-2) = 0 1C. LOC Commands (0-2) = 0 2. Horizontal gaze (0-2) = 0 3. Visual carias (0-3) = 0 4. Facial palsy (0-3) = 0 5. Motor arm Right (0-4) = 0 Left (0-4) = 0 6. Motor leg Right (0-4) = 0 Left (0-4) = 0 7. Limb ataxia (0-2) = 0 8. Sensory (0-2) = 0 9. Best Language = (0-3) = 0 10. Dysarthria (0-2) = 0 11. Extinction and inattention (0-2) = 0 Total NIHSS = 0 MEDICAL DECISION MAKING: Medications meclizine (Antivert) tablet 25 mg (25 mg Oral Given 04/24/232099) sodium chloride 0.9 % bolus 1,000 mL (1,000 mL IntraVENous New Bag 04/24/232107) Elza Rosas is a 47 y.o. female who presents as above, with lightheadedness/dizzin ess, describes symptoms suggestive of presyncope as well as vertigo, clinically suspect peripheral vertigo, she is afebrile, hypertensive but otherwise reassuring vitals, well-appearing, neurologic exam unremarkable -nonsuggestive of ischemic stroke, cardiopulmonary exam unremarkable, discussed with patient, obtain work-up to evaluate including CT head, chest x-ray, EKG, labs evaluation, treat with meclizine, IV fluids. Labs obtained, interpreted by me, notable for no renal dysfunction, glucose within acceptable range, hCG negative EKG obtained, per my interpretation, notable for sinus rhythm, nonspecific interventricular conduction delay similar to prior EKG. Troponin WNL CT head per radiologist interpretation, no acute findings CXR obtained, interpreted per radiologist no acute findings Patient informed of findings, on reevaluation she remains well-appearing, she reports symptoms are well controlled, she was ambulatory steady gait, I discussed further management options including hospitalization for further neurologic evaluation including MRI brain, patient declines, elects to be discharged, will prescribe meclizine, ENT referral for recommended close outpatient follow-up, with strict return precautions discussed, patient in agreement with plan, stable for discharge. DIAGNOSIS: Dizziness DISPOSITION: Discharge PRESCRIPTIONS: New Prescriptions MECLIZINE (ANTIVERT) 25 MG TABLET Take 1 tablet (25 mg) by mouth in the morning and 1 tablet (25 mg) at noon and 1 tablet (25 mg) in the evening and 1 tablet (25 mg) before bedtime. Do all this for 5 days. Comment: Please note this report has been produced using speech recognition software and may contain errors related to that system including errors in grammar, punctuation, and spelling, as well as words and phrases that may be inappropriate. If there are any questions or c (more content not included)... Normal [facility] [id number] 12-04-2022 SARS-CoV-2 (COVID-19) RNA REMY+probe Ql (Unsp spec) Negative Normal Negative [facility] ([place]) Comment on above: Performed By: #### C OVD19, FLURSV #### [address] [address] SARS-CoV-2 (COVID-19) RNA REMY+probe Ql (Unsp spec) Normal [facility] ([place]) Comment on above: Result Comment: Nega tive results do not preclude SARS-CoV-2 infection and should not be used as the sole basis for patient management decisions. Negative results must be combined with clinical observations, patient history, and epidemiological information. There is a risk of false negative values resulting from improperly collected, transported, or handled specimens. There is a risk of false negative values due to the presence of sequence variants in the pathogen targets of the assay, procedural errors, amplification inhibitors in specimens, or inadequate numbers of organisms for amplification. [employer] SARS-CoV-2 Assay is a Real-Time reverse-transcriptase polymerase chain reaction (RT-PCR) based qualitative in vitro diagnostic test intended for the qualitative detection of nucleic acid from the SARS-CoV-2 in nasopharyngeal swab specimens collected from individuals suspected of COVID-19 by their healthcare provider. Testing is limited to laboratories certified under the Clinical Laboratory Improvement Amendments of 1988 (CLIA), 42 U.S.C. ?263a, to perform moderate and high complexity tests. COVID-19 Int Performed By: #### C OVD19, FLURSV #### [address] [address] FLURSVon 12-04-2022 Flu A PCR (AO) Negative Normal Negative [facility] ([place]) Comment on above: Result Comment: Posi tive Results: Positive Flu A/B or RSV for by PCR. Positive test results do not rule out bacterial infection or co-infection with other pathogens. Test results should be interpreted in conjunction with other laboratory and clinical data. Negative Results: Negative for by PCR. Negative test results do not preclude influenza virus or RSV infection and should not be used as the sole basis for diagnosis, treatment, or other management decisions. There is a risk of false negative RSV results when at low concentration and in the presence of co-infection with high concentration of influenza A. Invalid Results: An Invalid result (INV) was obtained. The test was repeated with similar results. REPEAT COLLECTION AND TESTING IS RECOMMENDED. The [employer] Flu A/B & RSV Assay is a real-time polymerase chain reaction (PCR) based qualitative in vitro diagnostic test for the direct detection and differentiation of influenza A virus, influenza B virus, and respiratory syncytial virus (RSV) nucleic acid in nasopharyngeal swab (SOFTWARE DESIGN ENGINEER) specimens from patients with signs and symptoms of respiratory infection in conjunction with clinical and laboratory findings. The test is intended for use as an aid in the differential diagnosis of influenza A virus, influenza B virus, and RSV in humans and is not intended to detect influenza C. Performed By: #### C OVD19, FLURSV #### [address] [address] Flu B PCR (AO) Negative Normal Negative [facility] ([place]) Comment on above: Result Comment: Posi tive Results: Positive Flu A/B or RSV for by PCR. Positive test results do not rule out bacterial infection or co-infection with other pathogens. Test results should be interpreted in conjunction with other laboratory and clinical data. Negative Results: Negative for by PCR. Negative test results do not preclude influenza virus or RSV infection and should not be used as the sole basis for diagnosis, treatment, or other management decisions. There is a risk of false negative RSV results when at low concentration and in the presence of co-infection with high concentration of influenza A. Invalid Results: An Invalid result (INV) was obtained. The test was repeated with similar results. REPEAT COLLECTION AND TESTING IS RECOMMENDED. The [employer] Flu A/B & RSV Assay is a real-time polymerase chain reaction (PCR) based qualitative in vitro diagnostic test for the direct detection and differentiation of influenza A virus, influenza B virus, and respiratory syncytial virus (RSV) nucleic acid in nasopharyngeal swab (SOFTWARE DESIGN ENGINEER) specimens from patients with signs and symptoms of respiratory infection in conjunction with clinical and laboratory findings. The test is intended for use as an aid in the differential diagnosis of influenza A virus, influenza B virus, and RSV in humans and is not intended to detect influenza C. Performed By: #### C OVD19, FLURSV #### [address] [address] RSV PCR (AO) Negative Normal Negative [facility] ([place]) Comment on above: Result Comment: Posi tive Results: Positive Flu A/B or RSV for by PCR. Positive test results do not rule out bacterial infection or co-infection with other pathogens. Test results should be interpreted in conjunction with other laboratory and clinical data. Negative Results: Negative for by PCR. Negative test results do not preclude influenza virus or RSV infection and should not be used as the sole basis for diagnosis, treatment, or other management decisions. There is a risk of false negative RSV results when at low concentration and in the presence of co-infection with high concentration of influenza A. Invalid Results: An Invalid result (INV) was obtained. The test was repeated with similar results. REPEAT COLLECTION AND TESTING IS RECOMMENDED. The [employer] Flu A/B & RSV Assay is a real-time polymerase chain reaction (PCR) based qualitative in vitro diagnostic test for the direct detection and differentiation of influenza A virus, influenza B virus, and respiratory syncytial virus (RSV) nucleic acid in nasopharyngeal swab (SOFTWARE DESIGN ENGINEER) specimens from patients with signs and symptoms of respiratory infection in conjunction with clinical and laboratory findings. The test is intended for use as an aid in the differential diagnosis of influenza A virus, influenza B virus, and RSV in humans and is not intended to detect influenza C. Performed By: #### C OVD19, FLURSV #### [address] [place] [address] ED NOTEon 12-09-2020 ED NOTE HNO ID: [id number] Author: Cricket Farley) AMMON Kulkarni Service: ? Author Type: Registered Nurse Type: ED Notes Filed: 12/09/2020 9:06 PM Note Text: Normal [facility] ED NOTE HNO ID: [id number] Author: Cricket Farley) Shad RN Service: ? Author Type: Registered Nurse Type: ED Notes Filed: 12/09/2020 8:06 PM Note Text: Medications administered. Pt given crackers to eat following medications. [facility] ED NOTE HNO ID: [id number] Author: Cricket Farley) Shad RN Service: ? Author Type: Registered Nurse Type: ED Notes Filed: 12/09/2020 7:39 PM Note Text: Pt states her tooth broke this past week and since then she has had excruciating pain. Pt on several meds for pain along with clindamycin for the abcess and was seen on 12/06/19. Pt dental hygiene appears poor. Pt tearful and states nothing helps and the meds just make her tired. Normal [facility] ED NOTE HNO ID: [id number] Author: Sheyla (Rn) AMMON Moreno Service: ? Author Type: Registered Nurse Type: ED Notes Filed: 12/09/2020 7:33 PM Note Text: Bed: 50-ED Expected date: Expected time: Means of arrival: Comments: triage Normal [facility] ED PROV NOTEon 12-09-2020 ED PROV NOTE HNO ID: [id number] Author: Sara Arango) Wu Service: Emergency Medicine Author Type: Physician Imaging Technologist Type: ED Provider Notes Filed: 12/09/2020 8:49 PM Note Text: ED Provider Note Patient Name: Elza Rosas SERVICE DATE: 12/09/20 History Patient presents with: Mouth/Lip Problem: pt seen on 12/06/20 for the same issue, pt states her pain has worsened. pt c/o left lower tooth broke off and the nerve is exposed with left facial swelling. pt very tearful in triage. pt states, the shit doesn't work referring to medications given on . pt unable to get into a dentist at this time. HPI Patient is a 45-year-old female that presents to the emergency department with dental pain. Patient reports she was seen evaluated approximately 3 days ago, was given discharge medications which have not improved. She states 4 days ago she broke her bottom left tooth and the nerve is exposed. She denies difficulty swallowing, reports fevers of 101.4 at home. She has nausea with diarrhea since taking antibiotics. She has not been seen by dentist since her initial evaluation in the emergency department 3 days ago. No past medical history on file. No past surgical history on file. No family history on file. Social History Tobacco Use - Smoking status: Current Every Day Smoker Packs/day: 0.50 - Smokeless tobacco: Never Used Substance and Sexual Activity - Alcohol use: No - Drug use: No - Sexual activity: Not on file ALLERGIES Allergen Reactions - Novacain [Procaine * Hives - Penicillins Rash - Penicillins Hives Review of Systems Constitutional: Positive for fever. HENT: Positive for dental problem. Respiratory: Negative for shortness of breath. Cardiovascular: Negative for chest pain. Gastrointestinal: Positive for diarrhea and nausea. Psychiatric/Behavioral : The patient is nervous/anxious. Physical Exam BP 154/111 Pulse 105 Temp (Src) 98.4 (Oral) Resp 20 Ht 5' 7 (1.70m) Wt 245 lb (111.1kg) SpO2 97% LMP 11/21/2016 BMI 38.36 kg/(m2). O2 Therapy: Room Air Physical Exam Vitals reviewed. Constitutional: Appearance: Normal appearance. She is obese. HENT: Head: Atraumatic. Jaw: No trismus or tenderness. Mouth/Throat: Mouth: No angioedema. Dentition: Abnormal dentition. Dental tenderness and dental caries present. Pharynx: Uvula midline. Eyes: Conjunctiva/sclera: Conjunctivae normal. Pulmonary: Effort: Pulmonary effort is normal. Skin: General: Skin is warm and dry. Neurological: General: No focal deficit present. Mental Status: She is alert and oriented to person, place, and time. Psychiatric: Mood and Affect: Affect is tearful. Diagnostic Testing ED Labs Ordered and Reviewed - No data to display Procedures ED Course / Clinical Impression Clinical Impressions as of Dec 09 2048 Odontalgia Tooth avulsion, subsequent encounter MDM / Disposition / Plan MDM Vital signs were reviewed. Triage records were reviewed. Medical records were reviewed. Nursing notes were reviewed and incorporated. Medications: The following medications were administered: Medications predniSONE 60 mg tab(s) (DELTASONE) (60 mg ORAL Given 12/09/202000) acetaminophen 650 mg tab(s) (TYLENOL) (650 mg ORAL Given 12/09/202000) oxyCODONE-acetaminophe n 5-325 mg 1 tablet (PERCOCET) (1 tablet ORAL Given 12/09/202000) 45 year old female presents with dental pain. Pt is afebrile, non-toxic and hemodynamically stable. Pertinent physical exam findings reveal poor dentition, avulsion of crown of tooth number 20. Based on the patients PMH and PE I have suspicion for, but not limited to avulsion, odontalgia. After reviewing the patients medical records, presenting symptoms, PE findings, labs, the patients symptoms are most consistent with crown avuslion. The patient was treated with prednisone, Tylenol, Percocet. On reevaluation the patient requested something stronger for pain. I explained that ultimately the only treatment for her symptoms would be to remove the tooth through extraction by a dentist. I explained that I could give her a refill of her previously prescribed narcotic and resources to follow-up. Patient was informed of the results and expressed understanding and is amenable to the plan for discharge. No barriers of communication were apparent and I answered all questions. I advised the patient to return to the ED immediately if there are any new or worsening symptoms or if the symptoms are lasting longer than expected. The patient was DISCHARGED: Counseled patient regarding suspected diagnosis AND need for follow-up. Discharged home with verbal and written instructions. They were instructed to return as needed for persistent or worsening symptoms or any new concerns. Given a prescription for the following medication(s): oxycodone Condition at time of disposition: stable SIGNATURE: JOBY Martinez (Pa) 12/09/202048 [facility] ED PROV NOTEon 12-07-2020 ED PROV NOTE HNO ID: [id number] Author: Kee Gallardo MD Service: Emergency Medicine Author Type: Physician Type: ED Provider Notes Filed: 12/06/2020 11:15 PM Note Text: ED Provider Note Patient Name: Elza Rosas SERVICE DATE: 12/06/20 History Patient presents with: Dental Problem: left upper and lower crowns cracked x5 days. has not seen dentist yet. Patient presents with left upper and left lower dental pain. Patient reports that 1 month ago, the crown of her left upper molar fell off. She has not yet had a chance to see a dentist. She reports that she has had intermittent pain to this area. Patient reports that 5 days ago, the calf to her left lower tooth fell off. Since that time she has had severe pain, she reports subjective fevers and chills. She has been taking Tylenol with codeine as well as ibuprofen without significant relief. She denies any difficulty swallowing. She has not yet seen a dentist. Pain is severe, nothing makes it better or worse, radiates slightly towards the left ear. History provided by: Patient No past medical history on file. No past surgical history on file. No family history on file. Social History Tobacco Use - Smoking status: Not on file Substance and Sexual Activity - Alcohol use: Not on file - Drug use: Not on file - Sexual activity: Not on file ALLERGIES Allergen Reactions - Penicillins Rash Review of Systems Constitutional: Negative. HENT: Positive for dental problem. Negative for facial swelling. Eyes: Negative. Respiratory: Negative. Cardiovascular: Negative. Gastrointestinal: Negative. Genitourinary: Negative. Musculoskeletal: Negative. Skin: Negative. Neurological: Negative. Physical Exam BP 152/87 Pulse 86 Temp 98.4 Resp 19 Ht 5' 7 (1.70m) Wt 245 lb (111.1kg) SpO2 98% LMP 11/21/2016 BMI 38.36 kg/(m2). O2 Therapy: Room Air Physical Exam Vitals and nursing note reviewed. Constitutional: General: She is not in acute distress. Appearance: She is well-developed. HENT: Head: Normocephalic and atraumatic. Mouth/Throat: Dentition: Abnormal dentition. Dental tenderness and dental caries present. No gingival swelling or dental abscesses. Comments: No trismus Eyes: Conjunctiva/sclera: Conjunctivae normal. Pupils: Pupils are equal, round, and reactive to light. Musculoskeletal: Cervical back: Normal range of motion and neck supple. Skin: General: Skin is warm and dry. Findings: No rash. Neurological: Mental Status: She is alert and oriented to person, place, and time. Psychiatric: Behavior: Behavior normal. Diagnostic Testing ED Labs Ordered and Reviewed - No data to display Procedures ED Course / Clinical Impression Clinical Impressions as of Dec 06 2311 Pain, dental Dental caries MDM / Disposition / Plan Course: Vital signs were reviewed. Triage records were reviewed. Medical records were reviewed. Nursing notes were reviewed and incorporated. PDMP report was reviewed, no red flags or concerning narcotic findings Medical Decision Making: Patient presents with dental pain and erosion. She reports subjective fevers and chills. Overall she appears well on exam, she does have mild surrounding gingival erythema without dental abscess which would be amenable to incision and drainage in the emergency department today. Patient will be treated with clindamycin, Motrin, Tylenol, and a short course of oxycodone. She was instructed to see dentist at the next available appointment. Consent: A procedure or transfusion was performed - No SIGNATURE: MD Kee Alvarez MD 12/06/20 2315 [facility] ED NOTEon 01-04-2020 ED NOTE HNO ID: [id number] Author: Nichole (Rn) AMMON Floyd Service: ? Author Type: Registered Nurse Type: ED Notes Filed: 01/04/2020 8:56 PM Note Text: Pt provided with discharge, prescription, and f/u instruction. Pt verbalized understanding and denies any further questions at this time. Pt left the ED in stable condition, ambulatory with a steady gait. [facility] ED NOTE HNO ID: [id number] Author: Nichole ZhuRn) AMMON Floyd Service: ? Author Type: Registered Nurse Type: ED Notes Filed: 01/04/2020 8:28 PM Note Text: Pt sts I just want my results, I don't need a room. PA reevaluating pt. [facility] ED NOTE HNO ID: [id number] Author: Jada ZhuRn) AMMON Walton Service: ? Author Type: Registered Nurse Type: ED Notes Filed: 01/04/2020 5:52 PM Note Text: Flu swab sent [facility] ED PROV NOTEon 01-04-2020 ED PROV NOTE HNO ID: [id number] Author: Sara Washburn (Pa) Service: Emergency Medicine Author Type: Physician Imaging Technologist Type: ED Provider Notes Filed: 01/04/2020 8:38 PM Note Text: ED Provider Note Patient Name: Elza Rosas SERVICE DATE: 01/04/20 History Patient presents with: Flu Like Symptoms: x2 days, dry cough, fever/chills, body aches, nausea HPI Patient is a 44 year old female that presents with dry cough, using her inhaler at home and helping. Nausea with vomiting and diarrhea. Subjective fevers and chills at home. She also is having generalized body aches. She has not taken any medications at home to relieve her symptoms. No past medical history on file. No past surgical history on file. No family history on file. Social History Tobacco Use - Smoking status: Not on file Substance and Sexual Activity - Alcohol use: Not on file - Drug use: Not on file - Sexual activity: Not on file ALLERGIES No Known Allergies Review of Systems Constitutional: Positive for chills and fever. HENT: Positive for sore throat. Respiratory: Positive for cough. Gastrointestinal: Positive for nausea and vomiting. Genitourinary: Negative for dysuria. Musculoskeletal: Negative for back pain. Skin: Negative for rash. Physical Exam BP 137/96 Pulse 90 Temp (Src) 99 (Oral) Resp 18 Ht 5' 7 (1.70m) Wt 245 lb (111.1kg) SpO2 97% BMI 38.36 kg/(m2). O2 Therapy: Room Air Physical Exam Vitals signs and nursing note reviewed. Constitutional: General: She is not in acute distress. Appearance: She is well-developed. She is not diaphoretic. HENT: Head: Normocephalic and atraumatic. Eyes: General: No scleral icterus. Right eye: No discharge. Left eye: No discharge. Conjunctiva/sclera: Conjunctivae normal. Neck: Musculoskeletal: Normal range of motion and neck supple. Cardiovascular: Rate and Rhythm: Normal rate and regular rhythm. Heart sounds: Normal heart sounds. No murmur. No friction rub. No gallop. Pulmonary: Effort: Pulmonary effort is normal. No respiratory distress. Breath sounds: Normal breath sounds. No wheezing or rales. Chest: Chest wall: No tenderness. Abdominal: General: Bowel sounds are normal. There is no distension. Palpations: Abdomen is soft. There is no mass. Tenderness: There is no abdominal tenderness. There is no guarding or rebound. Hernia: No hernia is present. Musculoskeletal: Normal range of motion. General: No tenderness or deformity. Lymphadenopathy: Cervical: No cervical adenopathy. Skin: General: Skin is warm and dry. Coloration: Skin is not pale. Findings: No erythema or rash. Neurological: Mental Status: She is alert and oriented to person, place, and time. Diagnostic Testing ED Labs Ordered and Reviewed RAPID PCR ASSAY FOR INFLUENZA (AV,EU,FV,HL,VICENTE,MM,SP) - Abnormal; Notable for the following components: Result Value Ref Range Influenza A PCR Positive for Influenza A by RT PCR (*) All other components within normal limits Procedures ED Course / Clinical Impression Clinical Impressions as of Jan 04 2038 Viral syndrome Influenza A MDM / Disposition / Plan MDM Vital signs were reviewed. Triage records were reviewed. Medical records were reviewed. Nursing notes were reviewed and incorporated. laboratory results: The patients laboratory results are listed above. 44 year old female presents with flu like symptoms for 2 days. Pt is afebrile, non-toxic and hemodynamically stable. Pertinent physical exam findings reveal well appearing, in no acute distress. Based on the patients PMH and PE I have suspicion for, but not limited to influenza, viral syndrome. Pertinent labs revealed +influenza A . After reviewing the patients medical records, presenting symptoms, PE findings, labs, the patients symptoms are most consistent with influenza A. Patient was informed of the results and expressed understanding and is amenable to the plan for discharge. No barriers of communication were apparent and I answered all questions. I advised the patient to return to the ED immediately if there are any new or worsening symptoms or if the symptoms are lasting longer than expected. The patient was DISCHARGED: Counseled patient regarding lab results AND suspected diagnosis AND need for follow-up. Discharged home with verbal and written instructions. They were instructed to return as needed for persistent or worsening symptoms or any new concerns. Given a prescription for the following medication(s): Tamiflu Condition at time of disposition: stable SIGNATURE: JOBY Martinez (Pa) 01/04/202037 Normal [facility] Rapid PCR Assay [facility] 2019 Influenza A PCR Positive Critically abnormal [facility] Comment on above: Performed By: #### F LUPCR #### [place] [id number] Influenza B PCR Negative [facility] Comment on above: Performed By: #### F LUPCR #### [place] [id number] Specimen source Nom (Unsp spec) Nasopharyngeal Swab Normal [facility] Comment on above: Performed By: #### F LUPCR #### [place] [id number] GC + CHLAMYDIA BY AMPLIFIED DETECTIONon 09-09-2019 CHLAMYDIA TRACH.,AMPLIFIED Negative Normal NEGATIVE [facility] Comment on above: Performed By: #### W ETPR #### [facility] [place], [place] [address] [facility] [place] [address] N.GONORRHEA,AMPLIFIED Positive Abnormal NEGATIVE [facility] Comment on above: Performed By: #### W ETPR #### [address] [place] [address] URINALYSIS WITH REFLEX TO CU LTUREon 09-09-2019 Appearance (U) Canceled Normal [facility] Comment on above: Order Comment: TEST URINALYSIS WITH REFLEX TO CULTURE WAS CANCELLED, 09/09/2019 17:13 ptdischarged. Performed By: #### W ETPR #### [address] [place] [address] ASCORBIC ACID Canceled Normal [facility] Comment on above: Order Comment: TEST URINALYSIS WITH REFLEX TO CULTURE WAS CANCELLED, 09/09/2019 17:13 ptdischarged. Result Comment: Conc entrations > = 20 mg/dL of ascorbic acid can be expected to cause strong interference in the reactions testing for glucose, nitrite and blood. It is recommended to discontinue Vitamin C administration and retest in 10 hours. Performed By: #### W ETPR #### [address] [place] [address] Bilirubin (U) [Mass/Vol] Canceled Normal [facility] Comment on above: Order Comment: TEST URINALYSIS WITH REFLEX TO CULTURE WAS CANCELLED, 09/09/2019 17:13 ptdischarged. Performed By: #### W ETPR #### [address] [place] [address] BLOOD Canceled Normal [facility] Comment on above: Order Comment: TEST URINALYSIS WITH REFLEX TO CULTURE WAS CANCELLED, 09/09/2019 17:13 ptdischarged. Performed By: #### W ETPR #### [address] [place] [address] Color (U) Canceled Normal [facility] Comment on above: Order Comment: TEST URINALYSIS WITH REFLEX TO CULTURE WAS CANCELLED, 09/09/2019 17:13 ptdischarged. Performed By: #### W ETPR #### [address] [place] [address] Glucose [Mass/Vol] Canceled Normal [facility] Comment on above: Order Comment: TEST URINALYSIS WITH REFLEX TO CULTURE WAS CANCELLED, 09/09/2019 17:13 ptdischarged. Performed By: #### W ETPR #### [address] [place] [address] Ketones Ql (U) Canceled Normal [facility] Comment on above: Order Comment: TEST URINALYSIS WITH REFLEX TO CULTURE WAS CANCELLED, 09/09/2019 17:13 ptdischarged. Performed By: #### W ETPR #### [address] [place] [address] Leukocyte esterase Test strip Ql (U) Canceled Normal [facility] Comment on above: Order Comment: TEST URINALYSIS WITH REFLEX TO CULTURE WAS CANCELLED, 09/09/2019 17:13 ptdischarged. Performed By: #### W ETPR #### [address] [place] [address] Nitrite Ql (U) Canceled Normal [facility] Comment on above: Order Comment: TEST URINALYSIS WITH REFLEX TO CULTURE WAS CANCELLED, 09/09/2019 17:13 ptdischarged. Performed By: #### W ETPR #### [address] [place] [address] pH (Bld) Canceled [facility] Comment on above: Order Comment: TEST URINALYSIS WITH REFLEX TO CULTURE WAS CANCELLED, 09/09/2019 17:13 ptdischarged. Performed By: #### W ETPR #### [address] [place] [address] Protein (U) [Mass/Vol] Canceled Normal [facility] Comment on above: Order Comment: TEST URINALYSIS WITH REFLEX TO CULTURE WAS CANCELLED, 09/09/2019 17:13 ptdischarged. Performed By: #### W ETPR #### [address] [place] [address] Specific gravity (U) [Rel density] Canceled Normal [facility] Comment on above: Order Comment: TEST URINALYSIS WITH REFLEX TO CULTURE WAS CANCELLED, 09/09/2019 17:13 ptdischarged. Performed By: #### W ETPR #### [address] [place] [address] Urobilinogen Qn (U) Canceled Normal [facility] [place] Comment on above: Order Comment: TEST URINALYSIS WITH REFLEX TO CULTURE WAS CANCELLED, 09/09/2019 17:13 ptdischarged. Performed By: #### W ETPR #### [address] [place] [address] COMPREHENSIVE PANELon 2018 Albumin [Mass/Vol] Canceled Normal [facility] [place] Comment on above: Order Comment: TEST COMPREHENSIVE PANEL WAS CANCELLED, 09/07/2019 23:33 pt discharged. Performed By: #### C MP #### [address] [place] [address] ALP [Catalytic activity/Vol] Canceled Normal [facility] Comment on above: Order Comment: TEST COMPREHENSIVE PANEL WAS CANCELLED, 09/07/2019 23:33 pt discharged. Performed By: #### C MP #### [address] [place] [address] ALT [Catalytic activity/Vol] Canceled Normal [facility] Comment on above: Order Comment: TEST COMPREHENSIVE PANEL WAS CANCELLED, 09/07/2019 23:33 pt discharged. Result Comment: Demetris ents treated with Sulfasalazine may generate falsely decreased results for ALT. Performed By: #### C MP #### [address] [place] [address] Anion gap [Moles/Vol] Canceled Normal [facility] Comment on above: Order Comment: TEST COMPREHENSIVE PANEL WAS CANCELLED, 09/07/2019 23:33 pt discharged. Performed By: #### C MP #### [address] [place] [address] AST [Catalytic activity/Vol] Canceled Normal [facility] Comment on above: Order Comment: TEST COMPREHENSIVE PANEL WAS CANCELLED, 09/07/2019 23:33 pt discharged. Performed By: #### C MP #### [address] [place] [address] Bilirubin [Mass/Vol] Canceled Normal [facility] Comment on above: Order Comment: TEST COMPREHENSIVE PANEL WAS CANCELLED, 09/07/2019 23:33 pt discharged. Performed By: #### C MP #### [address] [place] [address] Calcium [Mass/Vol] Canceled Normal [facility] Comment on above: Order Comment: TEST COMPREHENSIVE PANEL WAS CANCELLED, 09/07/2019 23:33 pt discharged. Performed By: #### C MP #### [address] [place] [address] Chloride [Moles/Vol] Canceled Normal [facility] Comment on above: Order Comment: TEST COMPREHENSIVE PANEL WAS CANCELLED, 09/07/2019 23:33 pt discharged. Performed By: #### C MP #### [address] [place] [address] Creatinine [Mass/Vol] Canceled Normal [facility] Comment on above: Order Comment: TEST COMPREHENSIVE PANEL WAS CANCELLED, 09/07/2019 23:33 pt discharged. Performed By: #### C MP #### [address] [place] [address] GFR- AM. Canceled Normal [facility] Comment on above: Order Comment: TEST COMPREHENSIVE PANEL WAS CANCELLED, 09/07/2019 23:33 pt discharged. Result Comment: CALC ULATIONS OF ESTIMATED GFR ARE PERFORMED USING THE MDRD STUDY EQUATION FOR THE IDMS-TRACEABLE CREATININE METHODS. CLIN CHEM 2007;53:766-72 Performed By: #### C MP #### [address] [place] [address] GFR-NON AM. Canceled Normal [facility] [place] Comment on above: Order Comment: TEST COMPREHENSIVE PANEL WAS CANCELLED, 09/07/2019 23:33 pt discharged. Performed By: #### C MP #### [address] [place] [address] Glucose [Mass/Vol] Canceled Normal [facility] Comment on above: Order Comment: TEST COMPREHENSIVE PANEL WAS CANCELLED, 09/07/2019 23:33 pt discharged. Performed By: #### C MP #### [address] [place] [address] HCO3 (Bld) [Moles/Vol] Canceled Normal [facility] Comment on above: Order Comment: TEST COMPREHENSIVE PANEL WAS CANCELLED, 09/07/2019 23:33 pt discharged. Performed By: #### C MP #### [address] [place] [address] Potassium [Moles/Vol] Canceled Normal [facility] Comment on above: Order Comment: TEST COMPREHENSIVE PANEL WAS CANCELLED, 09/07/2019 23:33 pt discharged. Performed By: #### C MP #### [address] [place] [address] Protein [Mass/Vol] Canceled Normal [facility] Comment on above: Order Comment: TEST COMPREHENSIVE PANEL WAS CANCELLED, 09/07/2019 23:33 pt discharged. Performed By: #### C MP #### [address] [place] [address] Sodium [Moles/Vol] Canceled Normal [facility] Comment on above: Order Comment: TEST COMPREHENSIVE PANEL WAS CANCELLED, 09/07/2019 23:33 pt discharged. Performed By: #### C MP #### [address] [place] [address] Urea nitrogen [Mass/Vol] Canceled Normal [facility] Comment on above: Order Comment: TEST COMPREHENSIVE PANEL WAS CANCELLED, 09/07/2019 23:33 pt discharged. Performed By: #### C MP #### [address] [place] [address] Urea nitrogen [Mass/Vol] 14 mg/dL Normal 6 - 23 [facility] Comment on above: Performed By: #### C MP #### [address] [place] [address] Albumin [Mass/Vol] 3.6 g/dL Normal 3.4 - 5.0 [facility] Comment on above: Performed By: #### C MP #### [address] [place] [address] ALP [Catalytic activity/Vol] 46 U/L Normal 33 - 110 [facility] Comment on above: Performed By: #### C MP #### [address] [address] ALT [Catalytic activity/Vol] 13 U/L Normal 7 - 45 [facility] Comment on above: Result Comment: Demetris ents treated with Sulfasalazine may generate falsely decreased results for ALT. Performed By: #### C MP #### [address] [address] Anion gap [Moles/Vol] 9 mmol/L Low 10 - 20 [facility] Comment on above: Performed By: #### C MP #### [address] [address] AST [Catalytic activity/Vol] 14 U/L Normal 9 - 39 [facility] Comment on above: Performed By: #### C MP #### [address] [address] Bilirubin [Mass/Vol] 0.2 mg/dL Normal 0.0 - 1.2 [facility] Comment on above: Performed By: #### C MP #### [address] [address] Calcium [Mass/Vol] 8.9 mg/dL Normal 8.6 - 10.3 [facility] Comment on above: Performed By: #### C MP #### [address] [address] Chloride [Moles/Vol] 105 mmol/L Normal 98 - 107 [facility] Comment on above: Performed By: #### C MP #### [address] [address] Creatinine [Mass/Vol] 0.79 mg/dL Normal 0.50 - 1.05 [facility] Comment on above: Performed By: #### C MP #### [address] [address] GFR- AM. >60 Normal >60 [facility] Comment on above: Result Comment: CALC ULATIONS OF ESTIMATED GFR ARE PERFORMED USING THE MDRD STUDY EQUATION FOR THE IDMS-TRACEABLE CREATININE METHODS. CLIN CHEM 2007;53:766-72 Performed By: #### C MP #### [address] [place] [address] GFR-NON AM. >60 Normal >60 [facility] Comment on above: Performed By: #### C MP #### [address] [place] [address] Glucose [Mass/Vol] 114 mg/dL High 74 - 99 [facility] Comment on above: Performed By: #### C MP #### [address] [place] [address] HCO3 (Bld) [Moles/Vol] 31 mmol/L Normal 21 - 32 [facility] Comment on above: Performed By: #### C MP #### [address] [place] [address] Potassium [Moles/Vol] 4.4 mmol/L Normal 3.5 - 5.3 [facility] Comment on above: Performed By: #### C MP #### [address] [address] Protein [Mass/Vol] 6.7 g/dL Normal 6.4 - 8.2 [facility] Comment on above: Performed By: #### C MP #### [address] [place] [address] Sodium [Moles/Vol] 141 mmol/L Normal 136 - 145 [facility] Comment on above: Performed By: #### C MP #### [address] [place] [address] HCG,BETA-QUANTon 09-08-2019 HCG,BETA-QUANT Canceled Normal [facility] Comment on above: Order Comment: TEST HCG,BETA-QUANT WAS CANCELLED, 09/07/2019 23:33 pt discharged. Result Comment: Low- level positive HCG results can be seen in early , in thompson- or post-menopausal females due to normal pituitary HCG production, or with analytic interference. Repeat testing in 48-72 hours can aid in assessing for as results should double in this time period. FSH measurement is recommended in thompson- or post-menopausal females as concurrent elevation of FSH can support pituitary production as the source of the HCG elevation. . Total HCG measurement is performed using the Faith Flanagan Access Immunoassay which detects intact HCG and free beta HCG subunit. This test is not indicated for use as a tumor marker. HCG testing is performed using a different test methodology at [facility] than other [facility]. Direct result comparison should only be made within the same method. Performed By: #### H CGQU #### [address] [place] [address] HCG,BETA-QUANT <2 Normal [facility] Comment on above: Result Comment: Low- level positive HCG results can be seen in early , in thompson- or post-menopausal females due to normal pituitary HCG production, or with analytic interference. Repeat testing in 48-72 hours can aid in assessing for as results should double in this time period. FSH measurement is recommended in thompson- or post-menopausal females as concurrent elevation of FSH can support pituitary production as the source of the HCG elevation. . Total HCG measurement is performed using the Faith Mina Access Immunoassay which detects intact HCG and free beta HCG subunit. This test is not indicated for use as a tumor marker. HCG testing is performed using a different test methodology at [facility] than other [facility]. Direct result comparison should only be made within the same method. REF VALUES NON FEMALE <5 MALES <5 Performed By: #### H CGQU #### [address] [place] [address] Provider Note - ED v2on 0 Provider Note - ED v2 Provider Note - ED v2: Chart Review: ED NOTES ED NOTES: HPI: This 44-year-old female presents to the ED complaining of bilateral lower abdominal pain. This been going on for the last 2-3 days. She describes the pain as sharp in nature. The pain radiates towards her back and also down into her hips bilaterally. Laying flat seems to make the pain better. She has associated nausea but no vomiting, diarrhea. She does have a white vaginal discharge. Her last menstrual cycle 6 weeks ago. She had fever of 101 yesterday. She is concerned about STD because she found messages to other women on her partners phone. She is sexually active with one partner. She does not use protection. Past medical history: Denies any chronic medical problems Social history: Smokes half a pack of cigarettes per day Surgical history: ROS: CONST: Positive for fevers and chills EYS/ENT: No sore throat CVS/PULM: No chest pain No shortness of breath No cough GI/: Positive for abdominal pain and nausea No vomiting No problems urinating Positive for vaginal discharge MS/SKIN/LYMPH: Positive for bilateral hip pain No leg edema No skin rashes NEURO/PSYCH: No headache Physical exam: General: The patient appears well and in no apparent distress. Patient is resting comfortably on cart. Skin: Warm, dry, no pallor noted. Head: Normocephalic, atraumatic Neck: No JVD Eye: White sclera ENT: Moist mucus membranes Cardiovascular: Regular Rate and Rhythm, no gallups or rubs Respiratory: Patient is in no distress, no accessory muscle use, lungs are clear to auscultation, no wheezing, rales or rhonchi Extremities/MSK: Normal to gross inspection GI: tenderness to palpation Left greater than right side of the abdomen, no masses appreciated. No rebound, guarding, or rigidity noted. Neurological: A&O Psychiatric: Cooperative : External genitalia normal. There is a milky white vaginal discharge, from the vaginal canal. No cervical motion tenderness. No external lesions. Minimal tenderness to palpation on the right. There is moderate tenderness to palpation in the left adnexal area. No obvious masses palpated. Hospital Course / Medical Decision Making: At this moment the etiology of the abdominal pain is unknown. The patients vitals have been noted and are currently afebrile, hemodynamically stable. The workup, physical exam and observation period do not indicate a serious cause to the pain. Ultrasound does not show any evidence of acute ovarian pathology. We wanted to obtain a CT scan of her abdomen and pelvis as she does not want to wait for the CT scan. She wants to sign out AGAINST MEDICAL ADVICE. She is alert and oriented 3 and has medical decision-making capacity. She does not appear intoxicated. Patient left before being treated prophylacticly for STDs. The current assessment has been explained to the patient including the fact that etiology can not be ruled out with certainty. Patient was advised that in the event this is early in the process of a more serious condition they may expect their symptoms to worsen and if so to return to the emergency department immediately. Pt will otherwise follow up with primary care physician as soon as possible for re-evaluation. HISTORY OF PRESENTING ILLNESS ELZA is a 44 year old Female and was seen by me at 07-Sep-2019 19:31 for a chief complaint of hip pain/injury (KIDNEY STONE) . Triage Information: Most recent Vital Sign Value Date Temp (F): 97.8 09-07-2019 19:12 Temp (C): 36.6 09-07-2019 19:12 Heart Rate (beats/min): 84 09-07-2019 19:12 Respirations (breaths/min): 18 09-07-2019 19:12 SpO2 (%): 98 09-07-2019 19:12 BP Systolic (mm Hg): 149 09-07-2019 19:12 BP Diastolic (mm Hg): 95 09-07-2019 19:12 PAST MEDICAL HISTORY ATTESTATION: I have reviewed and confirmed nurse's/medic's notes for patient's medications, allergies, medical history, and surgical history ALLERGIES/INTOLERANCES : No Known Allergies HEALTH HISTORY: No documented data. OUTPATIENT MEDICATIONS: Home Medications Review Status for Reconciliation: N/A Med Status: N/A No documented data. SIGNIFICANT EVENTS: No documented data. AUTOMOBILE PAINTER: Is : no(1) Is : no(1) RESULTS/VITAL SIGNS RESULTS: Recent Lab Results: I have reviewed these laboratory results: Comprehensive Metabolic Panel 07-Sep-2019 22:24:00 ResultValue Glucose, Serum 114 H NA 141 K 4.4 CL 105 Bicarbonate, Serum 31 Anion Gap, Serum 9 L BUN 14 CREAT 0.79 GFR-Non >60 GFR- >60 Calcium, Serum 8.9 ALB 3.6 ALKP 46 T Pro 6.7 T Bili 0.2 Alanine Aminotransferase, Serum 13 Aspartate Transaminase, Serum 14 HCG, Beta Quantitative 07-Sep-2019 22:24:00 ResultValue HCG, Beta Quantitative <2 Complete Blood Count + Differential 07-Sep-2019 20:47:00 ResultValue White Blood Cell Count 7.7 Nucleated Erythrocyte Count 0.0 Red Blood Cell Count 4.58 HGB 13.7 HCT 41.5 MCV 91 MCHC 33.0 PLT 205 RDW-CV 13.7 Neutrophil % 56.2 Immature Granulocytes % 0.4 Lymphocyte % 35.8 Monocyte % 4.7 Eosinophil % 2.5 Basophil % 0.4 Neutrophil Count 4.35 Lymphocyte Count 2.76 Monocyte Count 0.36 Eosinophil Count 0.19 Basophil Count 0.03 Wet Prep, Exam 07-Sep-2019 20:07:00 ResultValue Trichomonas NONE SEEN Clue Cell Identification NONE SEEN Yeast Cells NONE SEEN WBC, Wet Prep NONE Fluid Source Genital vaginal VITAL SIGNS: T PRBP SpO2O2(LPM) %FiO2 Method 07-Sep-2019 22:45:[id number] 98 07-Sep-2019 19:12:[id number] 5 98 room air, no respiratory support CLINICAL IMPRESSION Diagnosis/Annotation: ED Dx Name:Abdominal pain Code:R10.9 Name:Left against medical advice Code:Z53.20 Name:STD exposure Code:Z20.2 Dispostion: AMA (saw a physician/midlevel provider and clinician was able to provide reasons for staying for treatment & form is signed) ATTESTATION Attestation: I saw and evaluated the patient. I personally obtained the perez and critical portions of the history and physical exam or was physically present for perez and critical portions performed by the resident/fellow. I reviewed the resident/fellows documentation and discussed the patient with the resident/fellow. I agree with the resident/fellows medical decision making as documented in the residents note CRITICAL CARE TIME Is this a critically ill patient: no Electronic Signatures: Garett Farrar (DO) (Signed 08-Sep-2019 14:03) Authored: Provider Note - ED v2 Co-Signer: Provider Note - ED v2 Kathleen Sheehan ( (Resident)) (Signed 07-Sep-2019 23:17) Authored: Provider Note - ED v2 Last Updated: 08-Sep-2019 14:03 by Garett Farrar () References: 1. Data Referenced From Triage - ED 07-Sep-2019 19:12 Normal [facility] CBC AND DIFFERENTIALon 09-07 % AUTOMATED IMMATURE GRAN 0.4 % Normal 0.0 - 0.9 [facility] Comment on above: Result Comment: Perc ent differential counts (%) should be interpreted in the context of the absolute cell counts (cells/L). Performed By: #### C BCDF #### [address] [address] Basophils (Bld) [#/Vol] 0.03 10*3/uL Normal 0.00 - 0.10 [facility] Comment on above: Performed By: #### C BCDF #### [address] [address] Basophils/100 WBC (Bld) 0.4 % Normal 0.0 - 2.0 [facility] Comment on above: Performed By: #### C BCDF #### [address] [address] Eosinophils (Bld) [#/Vol] 0.19 10*3/uL Normal 0.00 - 0.70 [facility] Comment on above: Performed By: #### C BCDF #### [address] [address] Eosinophils/100 WBC (Bld) 2.5 % Normal 0.0 - 6.0 [facility] Comment on above: Performed By: #### C BCDF #### [address] [address] Erythrocyte distribution width (RBC) [Ratio] 13.7 % Normal 11.5 - 14.5 [facility] Comment on above: Performed By: #### C BCDF #### [address] [address] Hematocrit (Bld) [Volume fraction] 41.5 % Normal 36.0 - 46.0 [facility] Comment on above: Performed By: #### C BCDF #### [address] [address] Hemoglobin (Bld) [Mass/Vol] 13.7 g/dL Normal 12.0 - 16.0 [facility] Comment on above: Performed By: #### C BCDF #### [address] [address] Lymphocytes (Bld) [#/Vol] 2.76 10*3/uL Normal 1.20 - 4.80 [facility] Comment on above: Performed By: #### C BCDF #### [address] [address] Lymphocytes/100 WBC (Bld) 35.8 % Normal 13.0 - 44.0 [facility] Comment on above: Performed By: #### C BCDF #### [address] [address] MCHC (RBC) [Mass/Vol] 33.0 g/dL Normal 32.0 - 36.0 [facility] Comment on above: Performed By: #### C BCDF #### [address] [address] MCV (RBC) [Entitic vol] 91 fL Normal 80 - 100 [facility] Comment on above: Performed By: #### C BCDF #### [address] [address] Monocytes (Bld) [#/Vol] 0.36 10*3/uL Normal 0.10 - 1.00 [facility] Comment on above: Performed By: #### C BCDF #### [address] [address] Monocytes/100 WBC (Bld) 4.7 % Normal 2.0 - 10.0 [facility] Comment on above: Performed By: #### C BCDF #### [address] [place] [address] Neutrophils (Bld) [#/Vol] 4.35 10*3/uL Normal 1.20 - 7.70 [facility] Comment on above: Performed By: #### C BCDF #### [address] [address] Neutrophils/100 WBC (Bld) 56.2 % Normal 40.0 - 80.0 [facility] Comment on above: Performed By: #### C BCDF #### [address] [address] Nucleated RBC/100 WBC (Bld) [Ratio] 0.0 /100 WBC Normal 0.0 - 0.0 [facility] Comment on above: Performed By: #### C BCDF #### [address] [address] Platelets (Bld) [#/Vol] 205 10*3/uL Normal 150 - 450 [facility] Comment on above: Performed By: #### C BCDF #### [address] [address] RBC (Bld) [#/Vol] 4.58 x10E12/L Normal 4.00 - 5.20 [facility] Comment on above: Performed By: #### C BCDF #### [address] [address] WBC (Bld) [#/Vol] 7.7 10*3/uL Normal 4.4 - 11.3 [facility] Comment on above: Performed By: #### C BCDF #### [address] [address] COMPREHENSIVE PANELon 2018 Albumin [Mass/Vol] Canceled Normal [facility] Comment on above: Order Comment: TEST COMPREHENSIVE PANEL WAS CANCELLED, 09/07/2019 21:03 specimen was grossly hemolyzed; diitri in er was notified. Performed By: #### C MP #### [address] [address] ALP [Catalytic activity/Vol] Canceled Normal [facility] Comment on above: Order Comment: TEST COMPREHENSIVE PANEL WAS CANCELLED, 09/07/2019 21:03 specimen was grossly hemolyzed; diitri in er was notified. Performed By: #### C MP #### [address] [place] [address] ALT [Catalytic activity/Vol] Canceled Normal [facility] Comment on above: Order Comment: TEST COMPREHENSIVE PANEL WAS CANCELLED, 09/07/2019 21:03 specimen was grossly hemolyzed; diitri in er was notified. Result Comment: Demetris ents treated with Sulfasalazine may generate falsely decreased results for ALT. Performed By: #### C MP #### [address] [place] [address] Anion gap [Moles/Vol] Canceled Normal [facility] Comment on above: Order Comment: TEST COMPREHENSIVE PANEL WAS CANCELLED, 09/07/2019 21:03 specimen was grossly hemolyzed; diitri in er was notified. Performed By: #### C MP #### [address] [place] [address] AST [Catalytic activity/Vol] Canceled Normal [facility] Comment on above: Order Comment: TEST COMPREHENSIVE PANEL WAS CANCELLED, 09/07/2019 21:03 specimen was grossly hemolyzed; diitri in er was notified. Performed By: #### C MP #### [address] [place] [address] Bilirubin [Mass/Vol] Canceled Normal [facility] Comment on above: Order Comment: TEST COMPREHENSIVE PANEL WAS CANCELLED, 09/07/2019 21:03 specimen was grossly hemolyzed; diitri in er was notified. Performed By: #### C MP #### [address] [place] [address] Calcium [Mass/Vol] Canceled Normal [facility] Comment on above: Order Comment: TEST COMPREHENSIVE PANEL WAS CANCELLED, 09/07/2019 21:03 specimen was grossly hemolyzed; diitri in er was notified. Performed By: #### C MP #### [address] [place] [address] Chloride [Moles/Vol] Canceled Normal [facility] Comment on above: Order Comment: TEST COMPREHENSIVE PANEL WAS CANCELLED, 09/07/2019 21:03 specimen was grossly hemolyzed; diitri in er was notified. Performed By: #### C MP #### [address] [place] [address] Creatinine [Mass/Vol] Canceled Normal [facility] Comment on above: Order Comment: TEST COMPREHENSIVE PANEL WAS CANCELLED, 09/07/2019 21:03 specimen was grossly hemolyzed; diitri in er was notified. Performed By: #### C MP #### [address] [place] [address] GFR- AM. Canceled Normal [facility] Comment on above: Order Comment: TEST COMPREHENSIVE PANEL WAS CANCELLED, 09/07/2019 21:03 specimen was grossly hemolyzed; diitri in er was notified. Result Comment: CALC ULATIONS OF ESTIMATED GFR ARE PERFORMED USING THE MDRD STUDY EQUATION FOR THE IDMS-TRACEABLE CREATININE METHODS. CLIN CHEM 2007;53:766-72 Performed By: #### C MP #### [address] [place] [address] GFR-NON AM. Canceled Normal [facility] Comment on above: Order Comment: TEST COMPREHENSIVE PANEL WAS CANCELLED, 09/07/2019 21:03 specimen was grossly hemolyzed; diitri in er was notified. Performed By: #### C MP #### [address] [place] [address] Glucose [Mass/Vol] Canceled Normal [facility] Comment on above: Order Comment: TEST COMPREHENSIVE PANEL WAS CANCELLED, 09/07/2019 21:03 specimen was grossly hemolyzed; diitri in er was notified. Performed By: #### C MP #### [address] [place] [address] HCO3 (Bld) [Moles/Vol] Canceled Normal [facility] Comment on above: Order Comment: TEST COMPREHENSIVE PANEL WAS CANCELLED, 09/07/2019 21:03 specimen was grossly hemolyzed; diitri in er was notified. Performed By: #### C MP #### [address] [place] [address] Potassium [Moles/Vol] Canceled Normal [facility] Comment on above: Order Comment: TEST COMPREHENSIVE PANEL WAS CANCELLED, 09/07/2019 21:03 specimen was grossly hemolyzed; diitri in er was notified. Performed By: #### C MP #### [address] [place] [address] Protein [Mass/Vol] Canceled Normal [facility] Comment on above: Order Comment: TEST COMPREHENSIVE PANEL WAS CANCELLED, 09/07/2019 21:03 specimen was grossly hemolyzed; diitri in er was notified. Performed By: #### C MP #### [address] [place] [address] Sodium [Moles/Vol] Canceled Normal [facility] Comment on above: Order Comment: TEST COMPREHENSIVE PANEL WAS CANCELLED, 09/07/2019 21:03 specimen was grossly hemolyzed; diitri in er was notified. Performed By: #### C MP #### [address] [place] [address] Urea nitrogen [Mass/Vol] Canceled Normal [facility] Comment on above: Order Comment: TEST COMPREHENSIVE PANEL WAS CANCELLED, 09/07/2019 21:03 specimen was grossly hemolyzed; diitri in er was notified. Performed By: #### C MP #### [address] [place] [address] GC + CHLAMYDIA BY AMPLIFIED DETECTIONon 09-07-2019 Lab Specimen Source Genital vaginal Normal [facility] Comment on above: Performed By: #### W ETPR #### [address] [place] [address] HCG,BETA-QUANTon 09-07-2019 HCG,BETA-QUANT Canceled Normal [facility] Comment on above: Order Comment: TEST HCG,BETA-QUANT WAS CANCELLED, 09/07/2019 21:04 specimen was grossly hemolyzed. Result Comment: Low- level positive HCG results can be seen in early , in thompson- or post-menopausal females due to normal pituitary HCG production, or with analytic interference. Repeat testing in 48-72 hours can aid in assessing for as results should double in this time period. FSH measurement is recommended in thompson- or post-menopausal females as concurrent elevation of FSH can support pituitary production as the source of the HCG elevation. . Total HCG measurement is performed using the Faith Flanagan Access Immunoassay which detects intact HCG and free beta HCG subunit. This test is not indicated for use as a tumor marker. HCG testing is performed using a different test methodology at [facility] than other [facility]. Direct result comparison should only be made within the same method. Performed By: #### H CGQU #### [facility] [place] [place] [address] [place] [address] Triage - EDon 09-07-2019 Triage - ED Quick Triage: The patient and/or guardian verbally acknowledges placement for services into the following (when Urgent Care Service hours are operating):emergency department Are You no Have You Given In The Last 6 Weeksno Are You Currently Breastfeedingno Chart Review: CHIEF COMPLAINT ELZA ROSAS is a Female patient with a chief complaint of hip pain/injury (KIDNEY STONE). Onset of the Complaint: 04-Sep-2019 Triage Date/Time: 07-Sep-2019 19:12 Pain Rating (0-10): 9 = Severe Acceptable Pain Level (0-10): 0 Pain location: L HIP PAIN Vital Signs: Temperature: 97.8F ( 36.6C) taken forehead Blood Pressure: 149/95 Mean: Heart Rate: 84 Respiratory Rate: 18 Pulse Oximetry: 98% on room air, no respiratory support. Height: 5 feet 7.00 inches. 170.1 CM Weight: 250.0 pounds. Calculated 113.3 kg. (stated) Calculated BMI (kg/m2): 39.158 Calculated BSA (m2) 2.31 Abimbola Coma Scale: Best Eye Response: (E4) spontaneous Best Motor Response: (M6) obeys commands Best Verbal Response: (V5) oriented Abimbola Score: 15 Cough lasting greater than 3 weeks: no Travel outside of [place]: no Allergies: no Mask applied: no Patient has homicidal thoughts: no BETTY: 3 Risk Screens Suicide Risk Screen In the Past Month: Have you wished you were or wished you could go to sleep and not wake up no In the Past Month: Have you had any actual thoughts of killing yourself no In Your Lifetime: Have you ever done anything, started to do anything, or prepared to do anything to end your life no Jones Fall Scale Screening Has the patient fallen before (or is the patient in the ED as a result of a fall) has not had a fall Does the patient have an impaired gait does not have impaired gait Is the patient cognitively impaired not cognitively impaired PAIN Pain Scale Used: EDUARDO Pain Rating (0-10): 9 = Severe Acceptable Pain Level (0-10): 0 ARRIVAL INFORMATION Means of Arrival: Ambulatory Mode of Arrival: private vehicle Arrival From: home Accompanied By: self Language: Spoken Language Preferred: Hong Konger Reading Language Preferred: [place]er Distribution Supervisor Requested: no senior investment manager was requested MDRO: History of MDRO: no Present on Arrival: Device Present on Arrival to ED: no Pressure Ulcer Present on Arrival to ED: no PRIMARY ASSESSMENT ELZA ROSAS's primary assessment is Within Normal Limits. The airway is open and patent. Breathing spontaneous and unlabored with clear breath sounds bilaterally. Circulation is normal with good peripheral pulses. Skin is warm and dry and color is normal for race. PAST MEDICAL HISTORY Immunization History: Last Known Tetanus Immunization: Less than 5 years TRAVEL HISTORY Travel Exposure History: NO travel to International locations in the past 30 days Past Medical History: Past Medical History Reviewedyes Electronic Signatures: Ang Montoya (EMT-P) (Signed 07-Sep-2019 19:16) Authored: Triage, Past Medical History Last Updated: 07-Sep-2019 19:16 by Ang Montoya (EMT-P) Normal [facility] US PELVIS TRANSABDOMINAL WIT H TRANSVAGINALon 09-07-2019 US PELVIS TRANSABDOMINAL WITH TRANSVAGINAL Patient Name: ROSAS ELZA STUDY: US PELVIS TRANSABDOMINAL WITH TRANSVAGINAL; 09/07/2019 9:40 pm INDICATION: lower abd pain, vaginal discharge. COMPARISON: None. ACCESSION NUMBER(S): [id number] ORDERING CLINICIAN: KATHLEEN SHEEHAN TECHNIQUE: Multiple multiplanar static lowery scale, color and spectral waveform sonographic images of the pelvis were obtained. Transabdominal and endovaginal ultrasound was performed. FINDINGS: UTERUS: The uterus is anteverted and normal in size and echogenicity measuring 9.1 x 4.7 x 6.2 cm. There are nabothian cysts of the cervix. ENDOMETRIUM: The endometrial stripe measures 5 mm. There are multiple small tiny cystic lesions within the endometrium measuring 2-3 mm RIGHT ADNEXA: The right ovary is not seen LEFT ADNEXA: The left ovary is normal in size and echogenicity with normal color Doppler flow and arterial waveform and measures 3.1 x 2.3 x 2.4 cm CUL DE SAC: There is no free fluid in the cul-de-sac. The bladder is grossly normal in appearance IMPRESSION: 1. Right ovary not seen. 2. Nabothian cysts of the cervix 3. Multiple small tiny cystic lesions within the endometrium measuring 2 and 3 mm Electronically signed by: LOURDES BARON MD Normal [facility] WET PREPon 09-07-2019 CLUE CELLS NONE SEEN Normal [facility] Comment on above: Performed By: #### W ETPR #### [address] [address] TRICHOMONAS NONE SEEN Normal Negative [facility] Comment on above: Performed By: #### W ETPR #### [address] [address] WBC (Bld) [#/Vol] NONE Normal [facility] Comment on above: Performed By: #### W ETPR #### [address] [address] Yeast LM Ql (Urine sed) NONE SEEN Normal [facility] Comment on above: Performed By: #### W ETPR #### [address] [address] PROGRESSon 06-19-2019 PROGRESS HNO ID: [id number] Author: Downtime Note Service: ? Author Type: ? Type: Progress Notes Filed: 06/19/2019 4:24 AM Note Text: Epic Scheduled Downtime: 06/19/2019 1:00:00 AM to 06/19/2019 4:11:00 AM Normal [facility] PROGRESSon 04-17-2019 PROGRESS HNO ID: [id number] Author: Ccf Provider Service: ? Author Type: Physician Type: Progress Notes Filed: 04/17/2019 2:54 AM Note Text: Epic Scheduled Downtime: 04/17/2019 1:00:00 AM to 04/17/2019 2:38:00 AM Normal [facility] CULTURE ANAEROBEon 9 CULTURE ANAEROBE CULTURE ANAEROBE --> Status: F No growth of anaerobes at 5 days. Normal [facility] Comment on above: Performed By: #### C /UR ####[address] [id number] [id number]#### C/TAD ####[address] [address] Op Noteon 02-16-2019 Op Note PATIENT: ERLINDA ROSAS ADMISSION DATE: 02/11/2019 SURGERY DATE: 02/11/2019 DATE OF : 1975 AGE: 43 ADMITTING PHYSICIAN: Susan Martin MD ATTENDING PHYSICIAN: Susan Martin MD DICTATING PHYSICIAN: Susan Martin MD OPERATIVE RECORD PROCEDURE: HYSTEROSCOPY, DILATION AND CURETTAGE. PREOPERATIVE DIAGNOSIS: Abnormal uterine bleeding. POSTOPERATIVE DIAGNOSES: 1. Abnormal uterine bleeding. 2. Endometrial polyp. ANESTHESIA: LMA. ESTIMATED BLOOD LOSS: 10 cc. COMPLICATIONS: None. SPECIMENS: Included EMC, plus polyp. DRAINS: 50 cc of urine. DESCRIPTION OF PROCEDURE: The patient was taken to the operating room where she was prepped and draped in normal sterile fashion in dorsal lithotomy position after being placed under LMA anesthesia without difficulty. She had her bladder drained for approximately 50 cc of the urine with a red rubber catheter prior to the beginning of the procedure. The patient had a sterile speculum placed in the vagina. Anterior lip of the cervix was grasped with single-tooth tenaculum. She had her uterus sounded and her cervix progressively dilated to allow passage of 5 mm hysteroscope. Hysteroscopy revealed an endometrial polyp endometrium. Hysteroscopy was terminated and sharp curettage was performed about all aspects of the uterus. With some polyp removal, she then had the endometrial polyp forceps used to remove the remaining polyp. Hysteroscopy was performed again to ensure all polyps were removed. Hysteroscopy revealed complete removal of polyp. At this point, the procedure was terminated. The patient had the tenaculum and speculum removed with good hemostasis vaginally and cervically. Sponge, lap, and needle counts were correct x2. The patient was taken to the recovery room in stable condition. Pathology included EMC, plus polyps. Diskriter Job ID: [id number] Susan Martin MD DOD:02/16/2019 01:20 P JENNA/good DOT:02/16/2019 03:39 P Job Number: [id number] Document Number: [id number] [facility] CULTURE URINEon 02-13-2019 CULTURE URINE 1 Organism Escherich ia coli >100,000 CFU/ml 1 Organism Antibiotic Result Intrp Amikacin(BILL) <= 2 S Amoxicillin/Clavulanic Acid(BILL) = 4 S Ampicillin(BILL) >= 32 R Ampicillin/Sulbactam(M IC) = 4 S Aztreonam(BILL) <= 1 S Cefazolin(BILL) R Cefepime(BILL) <= 1 S Ceftriaxone(BILL) <= 1 S Ciprofloxacin(BILL) <= 0.25 S Ertapenem(BILL) <= 0.5 S Gentamicin(BILL) <= 1 S Levofloxacin(BILL) <= 0.12 S Meropenem(BILL) <= 0.25 S Nitrofurantoin(BILL) = 32 S Pip/Tazobactam(BILL) <= 4 S Trimeth/Sulfa(BILL) >= 320 R Normal [facility] [employer] [facility] Comment on above: Performed By: #### C /UR ####[facility] [address] [place] [address]Rinsf [facility] [place], [place] [id number]#### C/TAD ####[facility] [place] [address] HCG,Urine Qualon 02-11-2019 Beta HCG ( test) Ql (U) Negative Normal Negative [facility] [employer] [facility] Comment on above: Result Comment: Preg libra is the most common reason for HCG in urine, although choriocarcinoma, hydatidiform mole, and certain nontropho- blastic malignancies also result in detectable urinary HCG levels. Sensitivity = 20mIU/mL. Performed By: #### H CGUR ####[facility] [employer] [address] [place] [address] Surgical Pathologyon [facility] Surgical Pathology [id number] [place] [address] [facility] PATHOLOGY AND LABORATORY MEDICINE [address] [place] [address] Fax - FINAL SURGICAL PATHOLOGY REPORT NAME: RALPHELZA : 1975 43 Y F BILLING NO.: [id number] LOCATION: [facility] SDS 01 PROCEDURE 02/11/2019 DATE: SURGEON: SUSAN MARTIN MD RECEIVED 02/11/2019 DATE: ATTENDING: SUSAN MARTIN MD REPORT DATE: 02/12/2019 COPIES TO: DIAGNOSIS: ENDOMETRIUM, CURETTINGS - DISORDERED PROLIFERATIVE ENDOMETRIAL TISSUE. FRAGMENTS OF ENDOMETRIAL POLYP. FRAGMENTS OF UNREMARKABLE ENDOCERVICAL TISSUE. SMT/SURI Signature> S KEN PULLIAM M.D. CLINICAL INFORMATION: N93.9 SPECIMEN: ENDOMETRIAL CURETTINGS GROSS DESCRIPTION: Endometrial curettings Received in formalin, attached to segments of Telfa, are multiple hemorrhagic segments of yung tissue which aggregate to 3 x 3 cm. The specimen is entirely submitted in three cassettes. (bits ns, 3) JCK/0RW Disclaimer: The following statement applies to all immunohistochemistry, in situ hybridization, molecular studies, and immunofluorescence testing. The use of one or more reagents in the above tests is regulated as an analyte specific reagent (ASR). These tests were developed and their performance characteristics determined by the clinical laboratories of [facility]. They have not been cleared by the US Food and Drug Administration (FDA). The FDA has determined that such clearance or approval is not necessary. All the above immunostains were performed on paraffin embedded tissue. Appropriate positive and negative controls (where applicable) were run in parallel with the patient's specimen; these controls showed expected staining pattern, with acceptable intensity of staining. Immunohistochemical assays have not been validated on decalcified tissues. Results should be interpreted with caution given the raised possibility of false negativity on decalcified specimens. Case reviewed at [facility] [address] [place] [address]. DEPARTMENT OF PATHOLOGY AND LABORATORY MEDICINE [place], [place] [address] Normal [facility] US Transvaginalon 02-10-2019 US Transvaginal Patient Name: ELZA ROSAS Ultrasound Exam Date/Time 02/09/2019 21:08:00 EDT Exam US Transvaginal Ordering Physician Stephen BERMUDEZ, AMBARJUAN ONTIVEROS Accession Number [id number] CPT4 Codes 19520 () Reason For Exam VAGINAL BLEEDING ABNORMAL, PRE-MENOPAUSE, >=16 MM ENDOMETRIUM ON TVUS, FOLLOW UP Report Transvaginal ultrasound CLINICAL INDICATION: Vaginal bleeding, abnormal Transvaginal imaging of the pelvis was performed. The uterus is anteverted and measures 11.0 x 5.5 x 6.6 cm. Nabothian cysts are noted in the cervix. No myometrial masses are otherwise noted. Endometrium contains several small cystic-appearing spaces. Maximum endometrial thickness is 1.5 cm and contour appears mildly lobulated. Findings could represent an endometrial polyp or endometrial hyperplasia. Right ovary measures 3.4 x 2.1 x 2.8 cm and contains a dominant size follicle measuring about 2.2 x 1.7 x 2.2 cm. Left ovary is identified by supplemental transabdominal imaging only and measures 3.0 x 2.5 x 2.4 cm. No focal masses are noted. No free intrapelvic fluid is identified. IMPRESSION: Endometrium contains multiple small cystic spaces with a maximum thickness of about 1.5 cm. The appearance of the endometrium could be related to endometrial polyp or endometrial hyperplasia. Report Dictated on Final Dictating Physician: MD MARTINEZ DIANE Signed Date and Time: 02/10/2019 10:01 am Signed by: MD MARTINEZ DIANE Transcribed Date and Time: 02/10/2019 10:03 Normal [facility] [facility] Add on test from HISon 02-09 Add on test from HIS Accepted Normal [facility] [employer] Comment on above: Result Comment: Spec imen available & acceptable for analysis. Performed By: #### A DDON ####[facility] [place] [place] [address] Basic Metabolic Panelon 01-29 Calcium [Mass/Vol] 8.8 mg/dL Normal 8.4-10.4 [facility] Comment on above: Performed By: #### H EMDF, BMP3 ####[place] [address] [place] [address] Glucose [Mass/Vol] 133 mg/dL High 70-100 [facility] Comment on above: Performed By: #### H JOSE BMP3 ####[place] [address] [place] [address] Anion gap [Moles/Vol] 4 Normal [facility] Comment on above: Performed By: #### H JOSE BMP3 ####[place] [address] [place] [address] CO2 [Moles/Vol] 32 mmol/L High 22-30 [facility] Comment on above: Performed By: #### H JOSE BMP3 ####[place] [address] [place] [address] Creatinine [Mass/Vol] 0.65 mg/dL Normal 0.52-1.25 [facility] Comment on above: Performed By: #### H JOSE BMP3 ####[place] [address] [place] [address] GFR/1.73 sq M predicted among blacks MDRD (S/P/Bld) [Vol rate/Area] mL/min/{1.73_m2} Normal >60 [facility] Comment on above: Performed By: #### H JOSE BMP3 ####[place] [address] [place] [address] GFR/1.73 sq M predicted among non-blacks MDRD (S/P/Bld) [Vol rate/Area] mL/min/{1.73_m2} Normal >60 [facility] Comment on above: Result Comment: Sour ce- MDRD equation with creatinine calibration to IDMS(NKDEP) eGFR not recommended for drug dose adjustment Performed By: #### H JOSE BMP3 ####[place] [address] [place] [address] Urea nitrogen [Mass/Vol] 13 mg/dL Normal 7-20 [facility] Comment on above: Performed By: #### H ELISHAF, BMP3 ####[place] [address] [place] [address] Potassium [Moles/Vol] 3.8 mmol/L Normal 3.5-5.1 [facility] Comment on above: Performed By: #### H EMDF, BMP3 ####[facility] [place] [address] Chloride [Moles/Vol] 104 mmol/L Normal 98-107 [facility] Comment on above: Performed By: #### H EMDF, BMP3 ####[facility] [place] [address] Sodium [Moles/Vol] 139 mmol/L Normal 135-145 [facility] Comment on above: Performed By: #### H EMDF, BMP3 ####[facility] [place] [address] Calcium [Mass/Vol] 9.0 mg/dL Normal 8.4-10.4 [facility] Comment on above: Performed By: #### H EMDF, BMP3, LFT3 #### [facility] [address] [place] [address] Glucose [Mass/Vol] 98 mg/dL Normal 70-100 [facility] Comment on above: Performed By: #### H EMDF, BMP3, LFT3 #### [facility] [address] [place] [address] Urea nitrogen [Mass/Vol] 17 mg/dL Normal 7-20 [facility] Comment on above: Performed By: #### H EMDF, BMP3, LFT3 #### [facility] [address] [place] [address] Anion gap [Moles/Vol] 4 Normal [facility] Comment on above: Performed By: #### H EMDF, BMP3, LFT3 #### [facility] [address] [place] [address] CO2 [Moles/Vol] 35 mmol/L High 22-30 [facility] Comment on above: Performed By: #### H EMDF, BMP3, LFT3 #### [facility] [address] [place] [address] Creatinine [Mass/Vol] 0.58 mg/dL Normal 0.52-1.25 [facility] Comment on above: Performed By: #### H EMDF, BMP3, LFT3 #### [facility] [address] [place] [address] GFR/1.73 sq M predicted among blacks MDRD (S/P/Bld) [Vol rate/Area] mL/min/{1.73_m2} Normal >60 [facility] Comment on above: Performed By: #### H EMDF, BMP3, LFT3 #### [facility] [address] [place] [address] GFR/1.73 sq M predicted among non-blacks MDRD (S/P/Bld) [Vol rate/Area] mL/min/{1.73_m2} Normal >60 [facility] Comment on above: Result Comment: Sour ce- MDRD equation with creatinine calibration to IDMS(NKDEP) eGFR not recommended for drug dose adjustment Performed By: #### H EMDF, BMP3, LFT3 #### [facility] [address] [place] [address] Potassium [Moles/Vol] 4.3 mmol/L Normal 3.5-5.1 [facility] Comment on above: Performed By: #### H EMDF, BMP3, LFT3 #### [facility] [address] [place] [address] Chloride [Moles/Vol] 104 mmol/L Normal 98-107 [facility] Comment on above: Performed By: #### H EMDF, BMP3, LFT3 #### [facility] [address] [place] [address] Sodium [Moles/Vol] 143 mmol/L Normal 135-145 [facility] Comment on above: Performed By: #### H EMDF, BMP3, LFT3 #### [facility] [address] [place] [address] CT Abdomen/Pelvis w/ Contras ton 02-09-2019 CT Abdomen/Pelvis w/ Contrast Patient Name: ELZA ROSAS CT Exam Date/Time 02/09/2019 00:30:[address] Abdomen/Pelvis w/ IV Contrast (IV Onl Ordering Physician JEANINE GOMEZ Accession Number [id number] CPT4 Codes 47795 (CT Abdomen/Pelvis w/ IV Contrast (IV Onl), Q9967 (CT ISOVUE 370MG/[id number] andMLand1) Reason For Exam abd pain Report CT ABDOMEN AND PELVIS WITH CONTRAST EXAM DATE AND TIME: 02/09/2019 12:30 AM EDT INDICATION: 43 years Female with abdominal pain COMPARISON: None TECHNIQUE: Transaxial sequence through the abdomen and pelvis with 3 mm reconstruction with dynamic intravenous infusion of 75 mL of 370 mg% contrast media. Coronal and sagittal reconstructions included. Dose reduction was employed with automated exposure control. FINDINGS: Chest base: Normal. Liver: Normal size and contour. No focal lesion. Biliary tree: Normal caliber. The gallbladder is nondistended, no radiopaque gallstones are seen, however there is mild gallbladder wall thickening. Spleen: Normal. Adrenals: Normal. Pancreas: Normal. Kidneys: Scarring is present in the right kidney. There is symmetric enhancement. There is a nonobstructive left renal calculus measuring 2 mm.. No focal lesion. Free fluid: None. Retroperitoneal/mesent anita lymphadenopathy: None. Bowel: Normal caliber. The appendix is nondistended. Aorta: Normal caliber.. Abdominal wall: Normal. Pelvic organs/viscera: There is mild endometrial canal thickening versus a small amount of fluid in the endometrial canal.. A small hypodense lesion is seen in the vagina on the right. Pelvic lymphadenopathy: None. Osseous structures: Normal. IMPRESSION: 1.\X09\Nonobstructive left renal calculus. 2.\X09\Small amount of fluid in the endometrial canal versus mild endometrial thickening. This is nonspecific and may be physiologic. 3.\X09\Mild gallbladder wall thickening. The gallbladder is nondistended, no radiopaque calculi are seen. Consider further evaluation with ultrasound. 4.\X09\Small hypodense lesion within the vagina on the right, could represent a cystic lesion such as a Salma's duct cyst, but is not fully evaluated on this study. Correlate with clinical exam. Report Dictated on Workstation: [id number] Final Dictating Physician: MD VILLALOBOS NICHOLAS Signed Date and Time: 02/09/2019 1:34 am Signed by: MD VILLALOBOS NICHOLAS Transcribed Date and Time: 02/09/2019 1:35 Normal [facility] Comprehensive Panelon 2018 ALP enzyme act/vol 54 U/L Normal 46-116 [facility] Comment on above: Performed By: #### P 14 #### [facility] [address] [place], [place] [address] Protein mass conc 7.6 g/dL Normal 6.4-8.2 [facility] Comment on above: Performed By: #### P 14 #### [facility] [address] [place], [place] [address] Bilirubin mass conc 0.2 mg/dL Normal 0.2-1.0 [facility] Comment on above: Performed By: #### P 14 #### [facility] [address] [place] [address] ALT enzyme act/vol 21 U/L Normal 12-78 [facility] Comment on above: Performed By: #### P 14 #### [facility] [address] [place] [address] AST enzyme act/vol 9 U/L Normal 9-37 [facility] Comment on above: Performed By: #### P 14 #### [facility] [address] [place], [place] [address] Creatinine mass conc 0.63 mg/dL Normal 0.51-0.95 [facility] Comment on above: Performed By: #### P 14 #### [facility] [address] [place], [place] [address] Albumin mass conc 3.3 g/dL Low 3.4-5.0 [facility] Comment on above: Performed By: #### P 14 #### [facility] [address] [place], [place] [address] Anion gap molar conc 10 mmol/L Normal 8-16 [facility] Comment on above: Performed By: #### P 14 #### [facility] [address] [place] [address] CO2 molar conc 27 mmol/L Normal 21-32 [facility] Comment on above: Performed By: #### P 14 #### [facility] [address] [place] [address] Glucose mass conc 119 mg/dL High 70-99 [facility] Comment on above: Performed By: #### P 14 #### [facility] [address] [place] [address] Urea nitrogen mass conc 12 mg/dL Normal 7-18 [facility] Comment on above: Performed By: #### P 14 #### [facility] [address] [place] [address] Calcium mass conc 8.3 mg/dL Low 8.5-10.1 [facility] Comment on above: Performed By: #### P 14 #### [facility] [address] [place] [address] Chloride molar conc 107 mmol/L Normal 98-107 [facility] Comment on above: Performed By: #### P 14 #### [facility] [address] [place] [address] Potassium molar conc 3.7 mmol/L Normal 3.5-5.1 [facility] Comment on above: Performed By: #### P 14 #### [facility] [address] [place] [address] Sodium molar conc 140 mmol/L Normal 136-145 [facility] Comment on above: Performed By: #### P 14 #### [facility] [address] [place] [address] Cult Urineon 02-09-2019 Cult Urine Test performed at [facility] ORGANISM: *Escherichia coli (ID: 1) >100,000 CFU/ml Strain 1 ORGANISM: *Escherichia coli (ID: 2) >100,000 CFU/ml Strain 2 Normal [facility] Comment on above: Performed By: #### C _URI #### [facility] [address] [place] [address] ED NOTEon 02-09-2019 ED NOTE HNO ID: [id number] Author: Kathy (Rn) AMMON Cotto Service: Behavioral Health Author Type: Registered Nurse Type: ED Notes Filed: 02/09/2019 10:21 AM Note Text: Pt was seen at [facility] today and was informed that she needed her gallbladder removed. Pt states she did not want to have surgery at [place] so she came here. Normal [facility] ED Triage Noteon 02-09-2019 ED Triage Note HNO ID: [id number] Author: ROVERTO Ortiz (Pa) Service: Emergency Medicine Author Type: Physician Imaging Technologist Type: ED Triage Notes Filed: 02/09/2019 10:25 AM Note Text: ED INTAKE NOTE Patient Name: Elza Rosas Service Date: 02/09/19 BRIEF HPI: Initially uncooperative with HANDP. Speaking on phone and yelling at visitors. Patient seen at [place] last night and refused admission for general surgery evaluation due to cholecystitis on US. Patient complains of generalized lower abdominal pain. Denies fever. BRIEF EXAM: Awake and Alert Speaking and yelling without difficulty. Vigorously moves around in wheel chair without difficulty. No distress noted. RRR CTAB Abdomen soft, TTP in RLQ and LLQ. No guarding/rigidity. INTAKE WORKUP: Bloodwork: CBC CMP Lipase Urinalysis Test SIGNATURE: Jimi Sanchez PA-C Normal [facility] HCG,Urine Qualon 02-09-2019 Beta HCG ( test) Ql (U) Negative Normal Negative [facility] [employer] Comment on above: Result Comment: Preg libra is the most common reason for HCG in urine, although choriocarcinoma, hydatidiform mole, and certain nontropho- blastic malignancies also result in detectable urinary HCG levels. Sensitivity = 20mIU/mL. Performed By: #### H CGUR, UAMAC, UAMIC ####[employer] [place] [address] Hemogram w/ Autodiffon 02-09 Abs Baso Cnt 0.0 10*3/uL Normal 0.0-0.2 [facility] Comment on above: Performed By: #### H EMDF, BMP3 ####[employer] [employer] [place] [address] Abs Neutrophile Cnt 2.7 10*3/uL Normal 1.8-7.0 [facility] [employer] Comment on above: Performed By: #### H EMDF, BMP3 ####[employer] [address] [place] [address] Basophils/100 WBC (Bld) 0.9 % Normal 0.0-2.0 [facility] Comment on above: Performed By: #### H EMDF, BMP3 ####[facility] [place] [address] Eosinophils (Bld) [#/Vol] 0.2 10*3/uL Normal 0.0-0.5 [facility] Comment on above: Performed By: #### H EMDF, BMP3 ####[place] [address] [place] [address] Eosinophils/100 WBC (Bld) 3.5 % Normal 1.0-6.0 [facility] Comment on above: Performed By: #### H EMDF BMP3 ####[facility] [employer] [place] [address] [place] [address] Erythrocyte distribution width (RBC) [Ratio] 15.0 % High 11.5-14.5 [facility] Comment on above: Performed By: #### H EMDF BMP3 ####[facility] [employer] [place] [address] [place] [address] Granulocytes/100 WBC (Bld) 50.0 % Normal 40.0-80.0 [facility] Comment on above: Performed By: #### H EMDF BMP3 ####[facility] [employer] [place] [address] [place] [address] Hematocrit (Bld) [Volume fraction] 41.1 % Normal 35.0-47.0 [facility] Comment on above: Performed By: #### H EMDF BMP3 ####[facility] [employer] [place] [address] [place] [address] Hemoglobin (Bld) [Mass/Vol] 13.5 g/dL Normal 11.7-16.0 [facility] Comment on above: Performed By: #### H EMDF, BMP3 ####[facility] [employer] [place] [address] [place] [address] Lymphocytes (Bld) [#/Vol] 2.2 10*3/uL Normal 1.0-4.3 [facility] Comment on above: Performed By: #### H EMDF, BMP3 ####[facility] [employer] [place] [address] [place] [address] Lymphocytes/100 WBC (Bld) 40.2 % High 20.0-40.0 [facility] Comment on above: Performed By: #### H EMDF, BMP3 ####[place] [address] [place] [address] MCH (RBC) [Entitic mass] 29.5 pg Normal 26.0-34.0 [facility] Comment on above: Performed By: #### H EMDF, BMP3 ####[place] [address] [place] [address] MCHC (RBC) [Mass/Vol] 32.8 % Normal 32.0-36.0 [facility] Comment on above: Performed By: #### H EMDF, BMP3 ####[place] [address] [place] [address] MCV (RBC) [Entitic vol] 89.9 fL Normal 79.0-98.0 [facility] Comment on above: Performed By: #### H EMDF BMP3 ####[place] [address] [place] [address] Monocytes (Bld) [#/Vol] 0.3 10*3/uL Normal 0.0-0.8 [facility] Comment on above: Performed By: #### H EMDF, BMP3 ####[place] [address] [place] [address] Monocytes/100 WBC (Bld) 5.4 % Normal 2.0-10.0 [facility] Comment on above: Performed By: #### H EMDF, BMP3 ####[place] [address] [place] [address] Platelet mean volume (Bld) [Entitic vol] 8.6 fL Normal 7.4-10.4 [facility] Comment on above: Performed By: #### H EMDF, BMP3 ####[place] [address] [place] [address] Platelets (Bld) [#/Vol] 178 10*3/uL Normal 140-440 [facility] Comment on above: Performed By: #### H EMDF, BMP3 ####[place] [address] [place] [address] RBC (Bld) [#/Vol] 4.57 10*6/uL Normal 3.80-5.20 [facility] Comment on above: Performed By: #### H EMDF, BMP3 ####[facility] [place] [address] WBC (Bld) [#/Vol] 5.5 10*3/uL Normal 3.6-10.7 [facility] Comment on above: Performed By: #### H EMDF, BMP3 ####[facility] [place] [address] Abs Baso Cnt 0.1 10*3/uL Normal 0.0-0.2 [facility] Comment on above: Performed By: #### H EMDF, BMP3, LFT3 #### [facility] [address] [place] [address] Abs Neutrophile Cnt 4.2 10*3/uL Normal 1.8-7.0 [facility] Comment on above: Performed By: #### H EMDF, BMP3, LFT3 #### [facility] [address] [place] [address] Basophils/100 WBC (Bld) 1.1 % Normal 0.0-2.0 [facility] Comment on above: Performed By: #### H EMDF, BMP3, LFT3 #### [facility] [address] [place] [address] Eosinophils (Bld) [#/Vol] 0.1 10*3/uL Normal 0.0-0.5 [facility] Comment on above: Performed By: #### H EMDF, BMP3, LFT3 #### [facility] [address] [place] [address] Eosinophils/100 WBC (Bld) 1.9 % Normal 1.0-6.0 [facility] Comment on above: Performed By: #### H EMDF, BMP3, LFT3 #### [facility] [address]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 of the femoral acetabular joint space. Tiny left acetabulum marginal osteophyte. Otherwise no significant productive or erosive arthropathy is seen. Impression: No evidence of fracture or subluxation of the left hip. Report Dictated on Final Dictating Physician: MD GRIER JASON Signed Date and Time: 01/08/2019 4:59 pm Signed by: MD GRIER JASON Transcribed Date and Time: 01/08/2019 5:00 Normal [facility] CR Spine Lumbosacral 4+ View son 01-08-2019 CR Spine Lumbosacral 4+ Views Patient Name: ELZA ROSAS Diagnostic Radiology Exam Date/Time 01/08/2019 16:45:18 EST Exam CR Spine Lumbosacral 4+ Views Ordering Physician ESCOBAR CONNELLY, PINA Tavera Accession Number [id number] CPT4 Codes 08497 () Reason For Exam pain fall Report Examination: Lumbar spine Clinical Indication: Pain low back Comparison: None Findings: AP, lateral, oblique, and cone-down lateral views of the lumbar spine demonstrate 5 normal lumbar type vertebra. The lumbar spine is in normal anatomic alignment. There is no evidence of loss of vertebral body height. Mild L5-S1 intervertebral disc space narrowing and facet arthropathy. No pars interarticularis defect is identified on the oblique views. Impression: 1.\X09\No radiographic evidence of acute fracture subluxation. 2.\X09\Mild L5-S1 intervertebral disc space narrowing and facet arthropathy. Examination: Left hip Clinical Indication: Pain Comparison: None Findings: AP view of the pelvis along with AP and lateral views of the left hip. There is no cortical or trabecular irregularity to suggest a fracture. Bones are grossly normal anatomic alignment. There is preservation of the femoral acetabular joint space. Tiny left acetabulum marginal osteophyte. Otherwise no significant productive or erosive arthropathy is seen. Impression: No evidence of fracture or subluxation of the left hip. Report Dictated on Final Dictating Physician: MD GRIER JASON Signed Date and Time: 01/08/2019 4:59 pm Signed by: MD GRIER JASON Transcribed Date and Time: 01/08/2019 5:00 Normal [facility] ED Provider Noteon 9 ED [facility] Patient: Elza Rosas : 1975 Date of Evaluation: 01/08/2019 ED EVELINA Provider: Pina Connelly APRN - ESCOBAR Chief Complaint Chief Complaint Patient presents with ? Back Pain pt fell at gas station. increased pain to left hip and left leg with weight bearing. denies hitting head GRIND[place] Elza Rosas is a 43 y.o. female who presents to the emergency department Patient presents the emergency department after falling at the [facility] in [place]. Patient states she was RIGHT by the door slipped and fell on ice landing onto her back region ROS: Review of Systems Constitutional: Negative for chills and fever. HENT: Negative for congestion, ear pain and sore throat. Eyes: Negative for visual disturbance. Respiratory: Negative for cough, shortness of breath and wheezing. Gastrointestinal: Negative for abdominal distention, abdominal pain and nausea. Genitourinary: Negative for dysuria, flank pain and frequency. Musculoskeletal: Positive for back pain. Left hip pain Skin: Negative for color change and rash. Neurological: Negative for dizziness, weakness, numbness and headaches. All other systems reviewed and are negative. At least 10 systemsreviewed and otherwise acutely negative except as in the GRINDSTONE. Past History Past Medical History: Diagnosis Date ? ADHD (attention deficit hyperactivity disorder) ? Anxiety ? Asthma ? Bronchitis ? Depression ? Restless legs syndrome ? Seizures (HCC) last seizure was when she was 10 yrs old ? Skull fracture (HCC) ? Sleep apnea Past Surgical History: Procedure Laterality Date ? SECTION ? FRACTURE SURGERY Social History Social History ? Marital status: Single Spouse name: N/A ? Number of children: N/A ? Years of education: N/A Social History Main Topics ? Smoking status: Current Every Day Smoker Packs/day: 0.50 Types: Cigarettes ? Smokeless tobacco: Never Used ? Alcohol use Yes Comment: on occassion ? Drug use: No ? Sexual activity: Not Asked Other Topics Concern ? None Social History Narrative ? None Medications/Allergies Discharge Medication List as of 01/08/2019 5:10 PM CONTINUE these medications which have NOT CHANGED Details fluticasone (FLOVENT HFA) 44 MCG/ACT inhaler Inhale 2 puffs into the lungs 2 times daily, Disp-1 Inhaler, R-3Normal albuterol sulfate HFA 108 (90 Base) MCG/ACT inhaler Inhale 2 puffs into the lungs every 6 hours as needed for Wheezing, Disp-1 Inhaler, R-3Normal ipratropium (ATROVENT HFA) 17 MCG/ACT inhaler Inhale 1 puff into the lungs 3 times daily, Disp-1 Inhaler, R-3Normal PREDNISONE PO Take by mouth dailyHistorical Med albuterol (PROVENTIL) (2.5 MG/3ML) 0.083% nebulizer solution Take 2.5 mg by nebulization every 6 hours as needed for WheezingHistorical Med Spacer/Aero-Holding Chambers MAXIMILIANO DAILY Starting 07/02/2017, Until Discontinued, Disp-1 Device, R-0, Normal Allergies Allergen Reactions ? Penicillins Anaphylaxis and Hives Physical Exam ED Triage Vitals [01/08/19 1510] BP Temp Temp Source Pulse Resp SpO2 Height Weight (!) 157/93 97 ?F (36.1 ?C) Temporal 74 16 98 % -- 251 lb (113.9 kg) Physical Exam Constitutional: She is oriented to person, place, and time. She appears well-developed and well-nourished. HENT: Head: Normocephalic and atraumatic. Eyes: Pupils are equal, round, and reactive to light. EOM are normal. Neck: Normal range of motion. Neck supple. Cardiovascular: Normal rate, regular rhythm and normal heart sounds. Pulmonary/Chest: Effort normal and breath sounds normal. Abdominal: Soft. Bowel sounds are normal. Musculoskeletal: Normal range of motion. Left hip: She exhibits tenderness. She exhibits normal range of motion, normal strength, no bony tenderness, no swelling, no crepitus, no deformity and no laceration. Lumbar back: She exhibits pain. She exhibits normal range of motion, no tenderness, no bony tenderness, no swelling, no edema, no deformity, no laceration, no spasm and normal pulse. Neurological: She is alert and oriented to person, place, and time. Skin: Skin is warm and dry. Psychiatric: She has a normal mood and affect. Nursing note and vitals reviewed. Diagnostics Labs: No results found for this visit on 01/08/19. Radiographs: Xr Lumbar Spine (min 4 Views) Result Date: 01/08/2019 Patient Name: ELZA ROSAS ---Diagnostic Radiology--- Exam Date/Time 01/08/2019 16:45:18 EST Exam CR Spine Lumbosacral 4+ Views Ordering Physician ESCOBAR CONNELLY BETH A. Accession Number [id number] CPT4 Codes 08903 () Reason For Exam pain fall Report Examination: Lumbar spine Clinical Indication: Pain low back Comparison: None Findings: AP, lateral, oblique, and cone-down lateral views of the lumbar spine demonstrate 5 normal lumbar type vertebra. The lumbar spine is in normal anatomic alignment. There is no evidence of loss of vertebral body height. Mild L5-S1 intervertebral disc space narrowing and facet arthropathy. No pars interarticularis defect is identified on the oblique views. Impression: 1.No radiographic evidence of acutefracture subluxation. 2.Mild L5-S1 intervertebral disc space narrowing and facet arthropathy. Examination: Left hip Clinical Indication: Pain Comparison: None Findings: AP view of the pelvis along with AP and lateral views of the left hip. There is no cortical or trabecular irregularity to suggest a fracture. Bones are grossly normal anatomic alignment. There is preservation of the femoral acetabular joint space. Tiny left acetabulum marginal osteophyte. Otherwise no significant productive or erosive arthropathy is seen. Impression: No evidence of fracture or subluxation of the left hip. Report Dictated on --- Final --- Dictating Physician: MD GRIER JASON Signed Date and Time: 01/08/2019 4:59 pm Signed by: MD GRIER JASON Transcribed Date and Time: 01/08/2019 5:00 Xr Hip Left (2-3 Views) Result Date: 01/08/2019 Patient Name: ELZA ROSAS ---Diagnostic Radiology--- Exam Date/Time 01/08/2019 16:45:18 EST Exam CR Hip w/ Pelvis 2 or 3 Views Left n Ordering Physician ESCOBAR CONNELLY BETH A. Accession Number [id number] CPT4 Codes 78443 () Reason For Exam fall pain Report Examination: Lumbar spine Clinical Indication: Pain low back Comparison: None Findings: AP, lateral, oblique, and cone-down lateral views of the lumbar spine demonstrate 5 normal lumbar type vertebra. The lumbar spine is in normal anatomic alignment. There is no evidence of loss of vertebral body height. Mild L5-S1 intervertebral disc space narrowing and facet arthropathy. No pars interarticularis defect is identified on the oblique views. Impression: 1.No radiographic evidence of acutefracture subluxation. 2.Mild L5-S1 intervertebral disc space narrowing and facet arthropathy. Examination: Left hip Clinical Indication: Pain Comparison: None Findings: AP view of the pelvis along with AP and lateral views of the left hip. There is no cortical or trabecular irregularity to suggest a fracture. Bones are grossly normal anatomic alignment. There is preservation of the femoral acetabular joint space. Tiny left acetabulum marginal osteophyte. Otherwise no significant productive or erosive arthropathy is seen. Impression: No evidence of fracture or subluxation of the left hip. Report Dictated on --- Final --- Dictating Physician: MD GRIER JASON Signed Date and Time: 01/08/2019 4:59 pm Signed by: MD GRIER JASON Transcribed Date and Time: 01/08/2019 5:00 Procedures: ED Course and MDM In brief, Elza Rosas is a 43 y.o. female who presented to the emergency department Patient states that she was the [facility] gas station slipped and fell on ice by the doorway. Patient states she landed on her buttocks. She states that she felt a cracking sensation in her LEFT hip and lower back patient states that she has current pain a 7 out of 10 patient denies falling or striking her head. She denies LOC. She is able to use all of her upper extremities she denies any knee or ankle pain.. On examination patient has no paraspinal tenderness. There is no saddle anesthesia. She denies any loss of bowel or bladder. There is no ecchymosis and/or abrasion laceration noted to her LEFT hip region and or her LEFT lower back where her pain is. Patient states she has not had any surgical intervention to her back or hip in the past. She denies being . Patient will be treated with [place] for pain. Patient has deep tendon reflexes intact positive MSP. Patient is able to move all upper and lower extremities. Imaging of her lumbar region shows no evidence of acute fracture or subluxation. Patient does have L5-S1 disc space narrowing and facet arthropathy. LEFT hip is unremarkable. Patient will be discharged home on Motrin 600 mg. She will follow-up with her primary care physician Dr. Ken henderson ED Medication Orders Start Ordered Status Ordering Provider 01/08/19 1536 01/08/19 1535 HYDROcodone-acetaminop hen (NORCO) 5-325 MG per tablet 1 tablet ONCE Last JAN action: Given - by AMBAR ROBLEDO on 01/08/19 at 1539 PINA CONNELLY Final Impression 1. Strain of lumbar region, initial encounter Stable 2. Fall, initial encounter DISPOSITION Patient seen independently with an Emergency Medicine attending available for supervision. (Please note that portions of this note may have been completed with a voice recognition program. Efforts were made to edit the dictations but occasionally words aremis-transcribed.) Pina Connelly APRN - ARTIFICIAL LIMB FITTER [employer] Pina Anthony GUY Connelly CNP 01/08/19 1706 GUY Park CNP 01/08/19 1823 Pina Anthony GUY Connelly - ESCOBAR 01/08/19 1843 [facility] ED NOTEon 08-28-2018 ED NOTE HNO ID: [id number] Author: Alejandro Powers) William Salgado Service: Emergency Medicine Author Type: Golf Course Mechanic Type: ED Notes Filed: 08/28/2018 4:22 PM Note Text: Clean catch urine specimen obtained and sent. Culture included. [facility] ED NOTE HNO ID: [id number] Author: Adriana ZhuRn) AMMON Hui Service: Emergency Medicine Author Type: Registered Nurse Type: ED Notes Filed: 08/28/2018 4:01 PM Note Text: ED XRAY notified pt ready. [facility] ED NOTE HNO ID: [id number]: Yamilet (Rn) JAVIER Mooreervice: Emergency MedicineAuthor Type: Registered NurseType: ED NotesFiled: 08/28/2018 3:44 PMNote Text:Pt c/o CP that is sharp in nature that she states literally takes herbreath away. Pt states her heart feels like it is fluttering. Pt statesshe is working too much and feels overwhelmed. [facility] ED Triage Noteon 08-28-2018 ED Triage Note HNO ID: [id number]: Alfredito Arango) Pasqualeervice: Emergency MedicineAuthor Type: Physician AssistantType: ED Triage NotesFiled: 08/28/2018 3:45 PMNote Text:ED INTAKE NOTEPatient Name: Elza RosasMRN: [id number] Date: 08/28/18BRIEF HPI:This is a 43-year-old female who presents ED with chief complaint of chestpain. Patient states that she has chest pain yesterday. Has beenintermittent, but came back worse today. It is piercing in nature.Located slightly tender proximal side of her chest. Nonradiating. Elayneoes report some intermittent shortness of breath where she feels like herbreath is taken away. She is also reporting palpitations associated withthis as well. She states that she has been under a lot of stress latelyat work, and has been taking a lot of hours. She does have a smokinghistory. Denies any cholesterol or diabetes history. She has report afamily history of heart disease. Her chest pain is rated 7 out of 10.BRIEF EXAM:Awake and AlertRRRCTABAbd soft/NT/ND; no rebound/guardingINTAKE WORKUP:Bloodwork: CBCBMPCardiac EnzymesEKGImaging: XR: chestSIGNATURE: ROVERTO Combs Normal [facility] EKG (AK,AV,EU,FV,HL,VICENTE,MM,SP )on 08-28-2018 Protein mass conc NAME : NINA ROSAS ID : [id number] : 1975 Gender : FemaleRace : CaucasianORD : [id number] Procedure Date : Aug 28 2018 15:43Edit Date : Aug 29 2018 14:29 Diagnosis:NORMAL SINUS RHYTHMINCOMPLETE RIGHT BUNDLE BRANCH BLOCKBORDERLINE ECGNO PREVIOUS ECGS AVAILABLEConfirmed by MD Chaudhry Thomas ([id number]) on 08/29/2018 2:29:56 PM Ventricular Rate : 78 BPMAtrial Rate : 78 BPMP-R Interval : 152 msQRS Duration : 118 msQ-T Interval : 412 msQTC Calculation(Bezet) : 469 msP [place] : 26 degreesR [place] : 11 degreesT [place] : 19 degrees Test Reason : Chest Pain Location : 4 : AKED CWR Overread By : MD Chaudhry ThomasEditted By : MD Chaudhry ThomasReferred By : RORO HDEZcquired by : Alejandro Salgado Normal [facility] Vital Signs Date Time Vital Sign Value Performing Clinician Facility 04-25-2025 21:05-0400 Body height 170.18 cm No Primary Care Physician [facility] 04-25-2025 21:05-0400 Body mass index (BMI) [Ratio] 41.1 kg/m2 No Primary Care Physician [facility] 04-25-2025 21:05-0400 Body temperature 97.9 [degF] No Primary Care Physician [facility] 04-25-2025 21:05-0400 Body weight 119.29 kg No Primary Care Physician [facility] 04-25-2025 21:05-0400 Diastolic blood pressure 114 mm[Hg] No Primary Care Physician [facility] 04-25-2025 21:05-0400 Heart rate 86 /min No Primary Care Physician [facility] 04-25-2025 21:05-0400 Respiratory rate 14 /min No Primary Care Physician [facility] 04-25-2025 21:05-0400 SaO2% (BldA) [Mass fraction] 99 % No Primary Care Physician [facility] 04-25-2025 21:05-0400 Systolic blood pressure 186 mm[Hg] No Primary Care Physician [facility] 12-30-2024 17:50-0500 Body temperature 97.8 [degF] No Primary Care Physician [facility] 12-30-2024 17:50-0500 Diastolic blood pressure 84 mm[Hg] No Primary Care Physician [facility] 12-30-2024 17:50-0500 Heart rate 81 /min No Primary Care Physician [facility] 12-30-2024 17:50-0500 Respiratory rate 20 /min No Primary Care Physician [facility] 12-30-2024 17:50-0500 SaO2% (BldA) [Mass fraction] 94 % No Primary Care Physician [facility] 12-30-2024 17:50-0500 Systolic blood pressure 151 mm[Hg] No Primary Care Physician [facility] 09-06-2024 17:34-0400 Diastolic Blood Pressure Non-Invasive 85 mm[Hg] AMBAR MILIAN DO [facility] 09-06-2024 17:34-0400 Heart rate 74 /min AMBAR MILIAN DO [facility] 09-06-2024 17:34-0400 Respiratory rate 16 /min AMBAR MILIAN DO [facility] 09-06-2024 17:34-0400 Systolic Blood Pressure Non-Invasive 133 mm[Hg] AMBAR MILIAN DO [facility] 09-06-2024 16:16-0400 Heart rate 76 /min AMBAR MILIAN DO [facility] 09-06-2024 16:16-0400 Respiratory rate 16 /min AMBAR MILIAN DO [facility] 09-06-2024 15:50-0400 Body height 170.2 cm AMBAR MILIAN DO [facility] 09-06-2024 15:50-0400 Body temperature 98.78 [degF] AMBAR MILIAN DO [facility] 09-06-2024 15:50-0400 Body weight 122.7 kg AMBAR MILIAN DO [facility] 09-06-2024 15:50-0400 Diastolic Blood Pressure Non-Invasive 111 mm[Hg] AMBAR MILIAN DO [facility] 09-06-2024 15:50-0400 Heart rate 86 /min AMBAR MILIAN DO [facility] 09-06-2024 15:50-0400 Respiratory rate 16 /min AMBAR MILIAN DO [facility] 09-06-2024 15:50-0400 Systolic Blood Pressure Non-Invasive 168 mm[Hg] AMBAR MILIAN DO [facility] 03-21-2024 17:41-0400 Body temperature 98 [degF] No Primary Care Physician [facility] 03-21-2024 17:41-0400 Diastolic blood pressure 89 mm[Hg] No Primary Care Physician [facility] 03-21-2024 17:41-0400 Heart rate 74 /min No Primary Care Physician [facility] 03-21-2024 17:41-0400 Respiratory rate 16 /min No Primary Care Physician [facility] 03-21-2024 17:41-0400 SaO2% (BldA) [Mass fraction] 94 % No Primary Care Physician [facility] 03-21-2024 17:41-0400 Systolic blood pressure 160 mm[Hg] No Primary Care Physician [facility] 03-21-2024 15:18-0400 Body height 170.18 cm No Primary Care Physician [facility] 03-21-2024 15:18-0400 Body mass index (BMI) [Ratio] 42.8 kg/m2 No Primary Care Physician [facility] 03-21-2024 15:18-0400 Body weight 124.14 kg No Primary Care Physician [facility] 12-02-2023 14:49-0500 Diastolic blood pressure 71 mm[Hg] [facility] 12-02-2023 14:49-0500 Heart rate 72 /min [facility] 12-02-2023 14:49-0500 Respiratory rate 16 /min [facility] 12-02-2023 14:49-0500 SaO2% (BldA) [Mass fraction] 98 % [facility] 12-02-2023 14:49-0500 Systolic blood pressure 126 mm[Hg] [facility] 12-02-2023 13:32-0500 Body height 170.18 cm [facility] 12-02-2023 13:32-0500 Body mass index (BMI) [Ratio] 42.7 kg/m2 [facility] 12-02-2023 13:32-0500 Body temperature 99 [degF] [facility] 12-02-2023 13:32-0500 Body weight 124 kg [facility] Encounters Encounter Date Encounter Type Care Provider Facility Start: 05-17-2025 End: 05-17-2025 Patient encounter procedure Jamal Harvey [place] [facility] Work Phone: Start: 05-17-2025 End: 05-17-2025 ambulatory No Primary Care Physician [facility] Work Phone: Start: 04-25-2025 End: 04-25-2025 Emergency department patient visit No Primary Care Physician -Emergency Department Work Phone: Start: 12-30-2024 End: 12-30-2024 Emergency department patient visit Dr. Srikanth Lizama MD -Emergency Department Work Phone: Start: 09-06-2024 End: 09-06-2024 Emergency department patient visit NONE PHYSICIAN Facility:[facility] Start: 08-16-2024 End: 08-17-2024 Emergency department patient visit Maddy Stark Facility:[facility] Start: 08-15-2024 End: 08-15-2024 Emergency department patient visit No Primary Care Physician Facility:[facility] Start: 08-05-2024 End: 08-05-2024 Emergency department patient visit No Primary Care Physician Facility:[facility] Start: 03-21-2024 End: 03-21-2024 Emergency department patient visit No Primary Care Physician [facility] Work Phone: Start: 02-18-2024 End: 02-18-2024 Patient encounter procedure No Primary Care Physician [facility] Work Phone: Start: 12-02-2023 End: 12-02-2023 Emergency department patient visit [facility] Work Phone: Start: 04-24-2023 End: 04-25-2023 Emergency department patient visit [facility] Start: 12-04-2022 End: 12-04-2022 Emergency department patient visit DEVENDRA DE PAZ MD Facility:B Start: 10-09-2019 End: 10-09-2019 Emergency department patient visit XIMENA WOODALL Facility:[facility] Start: 02-09-2019 End: 02-09-2019 Emergency department patient visit [facility] Facility: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 1975 Unknown [id number] 2.16.8 [id number] 1975 Unknown [id number] 2.16.8 [id number] Self-pay SELF PAY INSURANCE [id number] Unknown [id number] 2.16.8 [id number] Unknown [id number] 2.16.8 [id number] Unknown [id number] 2.16.8 [id number] Unknown [id number] 2.16.8 [id number] Unknown [id number] 2.16.8 [id number] Unknown [id number] 2.16.8 [id number] Social History Date Type Detail Facility Start: 12-02-2023 End: 03-21-2024 Tobacco smoking status NHIS Unknown if ever smoked [facility] Start: 12-13-2013 None [facility] Start: 12-13-2013 Spouse/ Signif icant Other [facility] Start: 12-13-2013 Cigarettes [facility] Start: 1975 Sex Assigned At Female W [facility] Start: 12-04-2022 End: 04-25-2025 Tobacco smoking status Heavy tobacco smoker (finding) [facility] Sex Assigned At Sex [facility] Functional Status Date Assessment Result Facility 09-06-2024 Functional Status Standard Safet y ID band on, Call device within reach, Bed in low position, Wheels locked, Upper/Half-Length side-rails up, Bedside Cart Locked, Safety level maintained [facility] Mental Status Date Assessment Result Facility 12-30-2024 Cognitive function Level Of Cons ciousness Awake;Alert;Appropriate;Follow s Commands [facility] Work Phone: 09-06-2024 Mental Status Orientation Oriented x 4 [facility] Clinical Notes 09-06-2024 to 04-25-2025 Note Date & Type Note Facility 04-25-2025 Discharge summary [facility] 04-25-2025 Discharge summary Note Date/Time April 25, 2025 10:45pm [facility] Medical Records Department [address] [place] [address] Emergency Department Summary 04/25/25 MR#: [id number] Acct: [id number] Name: ELZA ROSAS Rep #:[id number] : 1975 49 From: Robbie Salter PCP: Care Physician,No Primary Status :REG ER Location: ED HPI History of Present Illness Chief Complaint: Dental Informant: patient Narrative Narrative: Hot and cold sensitivity is left lower teeth last 2 days increasing swelling today subjective fevers. History of similar known dental caries. Has not had time to get to the dentist. Previous dental crowns and fillings which has fallen out. She has had previous extractions. No antibiotic allergies. Using [id number] Tylenol Motrin and Aleve last dosing at 3 PM. Denies cough denies urinary symptoms. Prior similar symptoms: Yes PFSH PFSH Medical History Asthma Smoker Anxiety Depression Home Medications ?Medication ?Instructions ?Recorded ?Last Taken ?Type oxycodone-acetaminophen 5 mg-325 1 tab PO Q6H 3 days # 12 tabs 08/15/24 Unknown Rx mg tablet (Percocet) gabapentin 100 mg capsule 100 mg PO QHS #7 caps Unknown Rx ondansetron 4 mg disintegrating 4 mg PO Q8H PRN PRN Na usea #10 tabs 08/16/24 Unknown Rx tablet albuterol sulfate 90 mcg/actuation 1 - 2 puff inhalati on Q4H PRN PRN 12/30/24 Unknown Rx aerosol inhaler (Ventolin HFA) Wheezing ##1 amoxicillin 875 mg-potassium 875 mg PO Q12H #20 TABLET S 04/25/25 Unknown Rx clavulanate 125 mg tablet hydrocodone-acetaminophen 5-325mg 1 tab PO Q6H PRN PRN Pain 3 days 04/25/25 Unknown Rx 5mg-325mg #12 TABLETS naproxen 500 mg tablet 500 mg PO BID PRN #20 tabs 0 04/25/25 Unknown Rx Allergy/AdvReac Type Severity Reaction Status Date / Time No Known Allergies Allergy Verified 04/25/25 21:08 Surgical History History of delivery Social History household members: children Smoking Status: Heavy Smoker (>10/day) substance use type: does not use ROS ROS ED Constitutional Constitutional ED: Reports fever(s) ENT ENT ED: Reports other Details: Dental pain, facial swelling Cardiovascular Cardiovascular: Denies chest pain Respiratory/Chest Respiratory/Chest: Denies cough Gastrointestinal Gastrointestinal: Denies diarrhea or vomiting Musculoskeletal Musculoskeletal: Denies none Integumentary Denies rash or wounds Neurologic Neurologic: Denies weakness EXAM Physical Exam Const Vital Signs: 04/25/25 21:05 Temperature 97.9 F Temperature Source Temporal Pulse Rate 86 Respiratory Rate 14 Blood Pressure 186/114 H Blood Pressure Mean 138 Pulse Ox 99 Positive well nourished and well developed General Appearance ED: well developed HEENT HEENT Narrative: Left mandibular swelling noted. No sublingual edema. There was extracted tooth18 and 19, 20 decayed down to the gumline, dental carry of 21. Extracted 22. There is focal gum swelling under tooth #20 some fluctuance, pinpoint area slight drainage was noted. normocephalic and atraumatic Eyes General Eye ED: Yes normal appearance of both eyes Neck full ROM Resp normal respiratory effort and normal air movement Cardio regular rate and regular rhythm GI soft to palpation Extremity normal to inspection and full ROM Neuro oriented x3 Skin no rashes or lesions noted and no wounds MDM MDM MDM Narrative Medical decision making narrative: Interventions / MDM: Differential diagnosis: Dental abscess, dental caries Diagnosis considered but do not suspect: No clinical Jacques angina My EKG interpretation: N/A Imaging independently reviewed and interpreted by myself: N/A External documents reviewed: ED visits from August 2020 for initial visits started on Augmentin second visit the following day CT scan with abscess had needle drainage and antibiotics continued. Test considered but not ordered:N/A ED course: Patient nontoxic afebrile in the ED. Exam focal abscess under tooth #20. She is started on Augmentin. With gumline swelling discussed I&D to help. She agreed. This was set up. Verbal consent. Normal sterile conditions. 0.5% of Sensorcaine without epinephrine was used. Initial attempt for inferior alveolar block on the left, 1.5 cc were placed, no full analgesia was obtained. The facial swelling gentle massage noted drainage from pinpoint area around tooth #20. We placed additional 1 cc of numbing medicine for submental block, there was improvement of analgesic. 11 blade used for straight incision over the opening of the drainage. Additional exudates were draining. Patient had some discomfort however tolerated the procedure well. There is additional drainage with opening increased with straight incision. Meds to bed provided for antibiotics NSAIDs and additional hydrocodone to help with symptom control. She is given dental list for follow-up for definitive treatment. All questions were answered. Re-evaluation: stable Disposition discussed with patient/family/significant other: Patient Case discussed with consulting clinician: N/A This note was generated with kompanyation software. It may contain incorrectwords, spelling, and punctuation that were not noted in checking the note beforesigning. Discharge Plan Triage Chief Complaint: Dental ED Provider: Robbie Markham Dx/Rx/DC Orders Clinical Impression: Abscess, dental, Dental caries Instructions: ED Dental Abscess Prescriptions: New hydrocodone-acetaminophen 5-325 mg tablet 1 tab PO Q6H PRN PRN (Reason: Pain) 3 Days Qty: 12 0RF amoxicillin-pot clavulanate 875-125 mg tablet 875 mg PO Q12H Qty: 20 0RF naproxen 500 mg tablet 500 mg PO BID PRN Qty: 20 0RF No Action oxycodone-acetaminophen [Percocet] 5-325 mg tablet 1 tab PO Q6H 3 Days Qty: 12 0RF ondansetron 4 mg tablet,disintegrating 4 mg PO Q8H PRN PRN (Reason: Nausea) Qty: 10 0RF gabapentin 100 mg capsule 100 mg PO QHS Qty: 7 0RF albuterol sulfate [Ventolin HFA] 90 mcg/actuation HFA aerosol inhaler 1 - 2 puff inhalation Q4H PRN PRN (Reason: Wheezing) Qty: 1 0RF Primary Care Provider: Care Physician,No Primary Referrals: Care Physician,No Primary [Primary Care Provider] - Activity Restrictions/Additional Instructions: I&D with draining abscess. Take and finish antibiotic as prescribed. Take painmedicine as prescribed. Follow-up with dentist from dental list for definitive treatment. Print Language: Hong Konger Disposition Disposition: Home, Self Care What to do if you have Problems For any increased pain, shortness of breath, bleeding, nausea or vomiting, chestpain, or any unexpected problems, contact your Primary Care Provider. Call [facility] ([phone]) or report to the closest Emergency Room. Call 911 if necessary. 04/25/252244 <Electronically signed by Robbie Salter> Cosigner Signature (if applicable): CC: No Primary Care Physician ~ Signed [facility] Work Phone: [phone] 179-730310-07-2024 Hospital Discharge instructions Patient Education 09/06/2024 17:24:50 Bronchitis With Wheezing (Adult) Viral or Bacterial Bronchitis with Wheezing (Adult) Bronchitis is an infection of the air passages. It often occurs during a cold and is usually causedby a virus. Symptoms include cough with mucus (phlegm) and low-grade fever. This illness is contagious during the first few days and is spread through the air by coughing and sneezing, or by direct contact (touching the sick person and then touching your own eyes, nose, or mouth). If there is a lot of inflammation, air flow is restricted. The air passages may also go into spasm,especially if you have asthma. This causes wheezing and difficulty breathing even in people who do not have asthma. Bronchitis usually lasts 7 to 14 days. The wheezing should improve with treatment during the first week. An inhaler is often prescribed to relax the air passages and stop wheezing. Antibiotics will be prescribed if your doctor thinks there is also a secondary bacterial infection. Home care If symptoms are severe, rest at home for the first 2 to 3 days. When you go back to your usual activities, don't let yourself get too tired. Dont s'moke. Also avoid being exposed to secondhand smoke. You may use [id number] medicine to control fever or pain, unless another medicine was prescribed. Note: If you have chronic liver or kidney disease or have ever had a stomach ulcer or gastrointestinal bleeding, talk with your healthcare provider before using these medicines. Also talk to yourprovider if you are taking medicine to prevent blood clots.) Aspirin should never be given to anyone younger than 18 years of age who is ill with a viral infection or fever. It may cause severe liveror brain damage. Your appetite may be poor, so a light diet is fine. Stay well hydrated by drinking 6 to 8 glasses of fluids per day (such as water, soft drinks, sports drinks, juices, tea, or soup). Extra fluids will help loosen secretions in the nose and lungs. Gipq-omw-hmjxdot cough, cold, and sore-throat medicines will not shorten the length of the illness,but they may be helpful to reduce symptoms. (Note: Don't use decongestants if you have high blood pressure.) If you were given an inhaler, use it exactly as directed. If you need to use it more often than prescribed, your condition may be worsening. If this happens, contact your healthcare provider. If prescribed, finish all antibiotic medicine, even if you are feeling better after only a few days. Follow-up care Follow up with your healthcare provider, or as advised. If you had an X-ray or ECG (electrocardiogram), a specialist will review it. You will be notified of any new findings that may affect your care. If you are age 65 or older, or if you have a chronic lung disease or condition that affects your immune system, or you smoke, ask your healthcare provider about getting a pneumococcal vaccine and a yearly flu shot (influenza vaccine). When to seek medical advice Call your healthcare provider right away if any of these occur: Fever of 100.4 F (38 C) or higher, or as directed by your healthcare provider Coughing up increasing amounts of colored sputum Weakness, drowsiness, headache, facial pain, ear pain, or a stiff neck Call 911 Call 911 if any of these occur. Coughing up blood Worsening weakness, drowsiness, headache, or stiff neck Increased wheezing not helped with medication, shortness of breath, or pain with breathing [phone] The [employer]. [address] [place] [address]. All rights reserved. This information is not intended as a substitute for professional medical care. Always follow yourhealthcare professional's instructions. Follow Up Care 09/06/2024 15:48:19 With:JULI BURNS DO Address: [address] [facility] [place] [address]- [phone] When:2-4 days With:Go to emergency room if symptoms worsen Address:Unknown When:2-4 days With:Call Physician Referral Address:Unknown When:2-4 days [facility] 10-07-2024 Emergency department Discharge summary Discharge Instructions Thank you for allowing [facility] to assist you with your healthcare needs. The following is importantdischarge information regarding your hospital visit. Diagnosis from Today's Visit Bronchitis What to Do Next Instructions from Your Care Team Please take Tylenol Motrin as needed for fever or discomfort. Please use steroids and inhaler as prescribed. Please continue to drink plenty of fluids. Will be prescribed Tessalon Perles for cough. Please try to avoid medications such as twab-amr-tmsyjnm cough and cold medications as they likely contain ingredients that can raise your blood pressure and your blood pressure was elevated here in the emergency department. Please follow-up with primary care physician for blood pressure recheck. Please return to the emergency department if your symptoms worsen, you develop chest pain or shortness of breath or have other acute concerns. Discharge Return to Work, School, or Sports (Return to Work, School, or Sports) - Ordered -- 09/08/24, May return to: work, 09/06/24 17:25:00 EDT Post Acute Orders No qualifying data available. You Need to Schedule the Following Appointments Follow Up with JULI BURNS DO When:Within 2-4 days Where:[address] [facility] [place] [address] [phone] Follow Up with Go to emergency room if symptoms worsen When:Within 2-4 days Follow Up with Call Physician Referral When:Within 2-4 days Allergies NKA Medications Please ask your primary doctor or pharmacist before taking any other medication not listed, including over the counter drugs, herbal medications, vitamins and or supplements as they may interact withyour home medications. What How Much When Why Instructions Last Dose New predniSONE (predniSONE 20 mg oral tablet) 2 tab(s) by mouth Once a day Duration: 7 Days Take with food Printed Prescription Changed albuterol (albuterol MDI (90 mcg/ inh) CFC free inhalation aerosol) 2 puff(s) by inhalation Every 4 hours as needed for as needed for wheezing Printed Prescription Changed albuterol (albuterol MDI (90 mcg/ inh) CFC free inhalation aerosol) 2 puff(s) by inhalation Every 4 hours Acute bronchitis Exacerbation of asthma Changed albuterol (albuterol 2.5 mg/ 3 mL (0.083%) inhalation solution) 3 Milliliter by inhalation Every 4 hours as needed for as needed for wheezing Acute bronchitis Exacerbation of asthma Please take this list to your next doctor s visit. Bring all medications you take, including over the counter medications, herbals and other supplements with you to your doctor s visit. Patients and families are reminded to discard old lists and to update any records with all medication providers or retail pharmacies. Education Materials Viral or Bacterial Bronchitis with Wheezing (Adult) Bronchitis is an infection of the air passages. It often occurs during a cold and is usually causedby a virus. Symptoms include cough with mucus (phlegm) and low-grade fever. This illness is contagious during the first few days and is spread through the air by coughing and sneezing, or by direct contact (touching the sick person and then touching your own eyes, nose, or mouth). If there is a lot of inflammation, air flow is restricted. The air passages may also go into spasm,especially if you have asthma. This causes wheezing and difficulty breathing even in people who do not have asthma. Bronchitis usually lasts 7 to 14 days. The wheezing should improve with treatment during the first week. An inhaler is often prescribed to relax the air passages and stop wheezing. Antibiotics will be prescribed if your doctor thinks there is also a secondary bacterial infection. Home care If symptoms are severe, rest at home for the first 2 to 3 days. When you go back to your usual activities, don't let yourself get too tired. Dont s'moke. Also avoid being exposed to secondhand smoke. You may use vhtx-tde-wglavla medicine to control fever or pain, unless another medicine was prescribed. Note: If you have chronic liver or kidney disease or have ever had a stomach ulcer or gastrointestinal bleeding, talk with your healthcare provider before using these medicines. Also talk to yourprovider if you are taking medicine to prevent blood clots.) Aspirin should never be given to anyone younger than 18 years of age who is ill with a viral infection or fever. It may cause severe liveror brain damage. Your appetite may be poor, so a light diet is fine. Stay well hydrated by drinking 6 to 8 glasses of fluids per day (such as water, soft drinks, sports drinks, juices, tea, or soup). Extra fluids will help loosen secretions in the nose and lungs. Vjxh-ain-vgbofzz cough, cold, and sore-throat medicines will not shorten the length of the illness,but they may be helpful to reduce symptoms. (Note: Don't use decongestants if you have high blood pressure.) If you were given an inhaler, use it exactly as directed. If you need to use it more often than prescribed, your condition may be worsening. If this happens, contact your healthcare provider. If prescribed, finish all antibiotic medicine, even if you are feeling better after only a few days. Follow-up care Follow up with your healthcare provider, or as advised. If you had an X-ray or ECG (electrocardiogram), a specialist will review it. You will be notified of any new findings that may affect your care. If you are age 65 or older, or if you have a chronic lung disease or condition that affects your immune system, or you smoke, ask your healthcare provider about getting a pneumococcal vaccine and a yearly flu shot (influenza vaccine). When to seek medical advice Call your healthcare provider right away if any of these occur: Fever of 100.4 F (38 C) or higher, or as directed by your healthcare provider Coughing up increasing amounts of colored sputum Weakness, drowsiness, headache, facial pain, ear pain, or a stiff neck Call 911 Call 911 if any of these occur. Coughing up blood Worsening weakness, drowsiness, headache, or stiff neck Increased wheezing not helped with medication, shortness of breath, or pain with breathing [phone] [employer]. [address] [place] [address], [place] [address]. All rights reserved. This information is not intended as a substitute for professional medical care. Always follow yourhealthcare professional's instructions. Additional Information VACCINATE! IT SAVES LIVES! Members of the community who have not yet received the COVID-19 vaccine and would like to receive it can visit one of [facility] vaccine clinics. There are many vaccine clinic locations within the [facility]. For locations and available times, please visit [email or web address] It is important to note that some COVID mobile vaccine clinics are held outdoors and may be canceled in rainy or stormy conditions. To learn more about pediatric vaccinations (ages 5-11), we invite you to visit the [facility] webpage. [email or web address]/[email or web address] stions.htmlTo learn more about the COVID-19 vaccine, we invite you to visit the CDC website for a list of frequently asked questions. https://www.cdc.gov/coronavirus/2019-ncov/vaccines/faq.html [facility] [employer] Patient Portal Access Instructions: Stay connected with your healthcare team and access your personal medical information anytime with the [facility] [employer] Patient Portal. If you would like a full copy of your medical records please contact the [facility] Medical Records Department Friday through Friday between 8a.m. and 4:30p.m. Please follow the directions below to access the portal: 1.Access the email account you provided upon registration to the [facility].2.Look for an invitation email from [facility].3.Open the email and access the invitation link: Accept Invitation to [facility]4.Fill in the required carias to create your account. Sign into [email or web address] with your username and password that you created in the above steps to stay up to date. You can then view a summary of results, a summary of your visits, and the ability to download your summaries to your computer or send the information securely to a physician. Remember that your healthcare information is confidential, so carefully consider who you will allow to register on the [facility] [employer] Patient Portal for access to your information. You can also access the [employer] Patient Portal on the [employer]. Simply click on Health Records under [employer] and then click on the [employer] logo. HOW TO SAFELY DISPOSE OF PRESCRIPTION MEDICATIONS Please use one of the following methods to safely dispose of your unused medications. 1.Use a drug disposal kit: the drug disposal pouch allows you to safely discard your old and unuseddrugs. Ask your nurse to give you one when you are discharged.2.Visit a local take-back location: Many local pharmacies and police departments have programs that collect old and unwanted prescriptiondrugs. Call your local pharmacy or go to http://iConnectivity.Shelfie/4S0By1h to find one close to you.3.Make use of household items: Use cat litter or old coffee grounds to dispose medications if other options arenot available. Mix your drugs with these household products, seal them in an airtight container andthrow it into the garbage. Call [facility]: [phone] to be sure your drugs can be disposed of in this way. Some medicines may require a different approach.4.Never flush your medications down the toilet. IF YOU HAVE BEEN PRESCRIBED AN OPIOIDS FOR PAIN If you have been prescribed an opioid (such as hydrocodone, oxycodone or morphine), it is critical to understand the possible side effects and risks of opioid pain medications. Even when taken as directed, opioids can have several side effects including: Tolerance, meaning you might need to take more of a medication for the same pain relief. Nausea, vomiting and/or constipation. Sleepiness, dizziness, dry mouth, confusion, depression or itching. Physical dependence, meaning you have withdrawal symptoms when a medication is stopped ? this can develop within a few days. KNOW YOUR RESPONSIBILITIES It is important to know exactly how much and how often to take the opioid pain medications you are prescribed. Never take opioids in higher amounts or more often than prescribed. Do not combine opioids with alcohol or other drugs that cause drowsiness, such as benzodiazepines, also known as benzos,including diazepam and alprazolam, muscle relaxants or sleep aids. Never sell or share prescriptionopioids. This is illegal. Store opioids in a secure place and out of reach of others (including children, family, friends and visitors). The last page(s) of this document has been signed and retained as a CHART COPY Signatures Patient Education Materials Bronchitis With Wheezing (Adult) Medication Leaflets My discharge plan and instructions have been reviewed and explained to me and I,ELZA ROSAS understand my current condition and have read and understand these discharge instructions. I have received a written copy of the plan/instructions. If I have questions, I am aware that I should contact my d octor. Patient/Gamb Cutter Signature: Date/Time: Relationship to Patient: Witness Name/Signature: Date/Time: [facility]10-07-2024 Note ORIGINAL EXAMINATION: TWO XRAY VIEWS OF THE CHEST 09/06/2024 4:37 pm COMPARISON: None. HISTORY: ORDERING SYSTEM PROVIDED HISTORY: Reason for Exam: cough, sob FINDINGS: Cardiomediastinal contours normal. No focal consolidation or pulmonary edema. No pneumothorax or pleural effusion. No acute osseous abnormality. IMPRESSION: No focal consolidation. I have personally reviewed the images of this examination and agree with the resident's findings and interpretation. Interpreted by: Chas Cheung Preliminary Report By: Cricket Hodgson Electronically signed By Chas Cheung Dictated Date: 09/06/2024 4:46:12 PM Prelim Date: 09/06/2024 4:47:18 PM Sign Date: 09/06/2024 5:13:45 PM [facility] + Plan note No data available for this section [facility] Evaluation noteNo assessment information available [facility] Work Phone: Evaluation note* Diagnosis Onset Date Resolution Status Admit Date Physical exam, pre-employment acute May 17, 2025 1:51pm [facility] Work Phone: Hospital Discharge instructions Additional Instructions Take antibiotics as prescribed and follow-up with a dentist. Return for worsening of symptoms.[facility] Work Phone: Hospital Discharge instructions Additional Instructions I&D with draining abscess. Take and finish antibiotic as prescribed. Take pain medicine as prescribed. Follow-up with dentist from dental list for definitive treatment. [facility] Work Phone: Reason for referral (narrative)No reason for referral information availableWOur [facility] Work Phone: Summary Purpose Family History No Family History Records FoundNo Family History Records FoundNo Family History Records FoundNo Family History Records FoundNo Family History Records FoundNo Family History Records FoundNo Family History Records FoundNo Family History Records FoundNo Family History Records FoundNo Family History Records FoundNo Family History Records Found No data available for this section No Family History Records Found Advance Directives No Advanced Directives Records Found Advance Directive Response Recorded Date/ Time Advance Directives No December 13, 2013 1:54am Living Will No December 02 1:59pm Power of Morphologist No December 02 1:59pm Advance Directive Response Recorded Date/ Time Advance Directives No December 13, 2013 2:54am Living Will No March 21, 2024 3:45pm Power of Morphologist No March 21 3:45pm Advance Directive Response Recorded Date/ Time Living Will No December 30 6:33pm Do you have a Healthcare Power of Morphologist? No December 30, 2024 6:33pm Do you have a Healthcare Power of Morphologist? No April 25, 2025 9:43pm Advance Directives No December 13, 2013 2:54am Advance Directive Response Recorded Date/ Time Do you have a Healthcare Power of Morphologist? No April 25, 2025 9:43pm Advance Directives No December 13, 2013 2:54am Chief Complaint and Reason for Visit Chief Complaint DENTAL Chief Complaint DENTAL PRE EMP/NON DOT/DRUG SCREEN/[facility] leg pain Chief Complaint Admit Date possible flu December 30, 2024 3 :21pm DENTAL April 25, 2025 9:04p m Chief Complaint Admit Date DENTAL April 25, 2025 9:04p m PE NON DOT PHYSICAL/ [facility] 2024 1:51pm Reason for Visit Admit Date Physical exam, pre-employment May 17, 2025 1:51pm Additional Source Comments INFORMATION SOURCE (unrecogn ized section and content) DATE CREATED AUTHOR 09/30/2018 [facility] DATE CREATED AUTHOR AUTHOR'S ORGANIZ ATION 02/15/2019 [facility] DATE CREATED AUTHOR AUTHOR'S ORGANIZ ATION 06/19/2019 [facility] DATE CREATED AUTHOR AUTHOR'S ORGANIZ ATION 06/22/2019 [facility] DATE CREATED AUTHOR AUTHOR'S ORGANIZ ATION 09/09/2019 [facility] DATE CREATED AUTHOR AUTHOR'S ORGANIZ ATION 01/04/2020 [facility] DATE CREATED AUTHOR AUTHOR'S ORGANIZ ATION 12/13/2020 [facility] DATE CREATED AUTHOR AUTHOR'S ORGANIZ ATION [facility]/31/2021 [facility] DATE CREATED AUTHOR AUTHOR'S ORGANIZ ATION 12/24/2022 [facility] ([place] DATE CREATED AUTHOR AUTHOR'S ORGANIZ ATION 05/10/2023 [facility] DATE CREATED AUTHOR AUTHOR'S ORGANIZ ATION 09/11/2024 [facility] DATE CREATED AUTHOR AUTHOR'S ORGANIZ ATION [facility] Care Teams (unrecognized sec tion and content) Team Status: Active Member Role Status Dates No Primary Care Physician Family Provider Active No Primary Care Physician Primary Care Provider Active Team Status: Inactive Member Role Status Dates No Primary Care Physician Primary Care Provider Active Dr. Srikanth Lizama MD Emergency Provider Active Team Status: Inactive Member Role Status Dates No Primary Care Physician Primary Care Provider, Refer ring Provider Active Jamal LAYNE PA Attending Provider Active Team Status: Inactive Member Role Status Dates No Primary Care Physician Primary Care Provider Active Dr. Srikanth Lizama MD Attending Provider, Emergency Provider Active Team Status: Inactive Member Role Status Dates No Primary Care Physician Primary Care Provider Active Dr. Anita Min DO Emergency Provider Active Team Status: Active Member Role Status Dates No Primary Care Physician Primary Care Provider Active Team Status: Inactive Member Role Status Dates No Primary Care Physician Primary Care Provider Active Start: December 30, 2024 End: December 30, 2024 Dr. Srikanth Lizama MD Attending Provider Active Start: December 30, 2024 End: December 30, 2024 Dr. Srikanth Lizama MD Emergency Provider Active Start: December 30, 2024 End: December 30, 2024 Team Status: Inactive Member Role Status Dates No Primary Care Physician Primary Care Provider Active Start: April 25, 2025 End: April 25, 2025 Dr. Robbie Markham DO Emergency Provider Active Start : April 25, 2025 End: April 25, 2025 Team Status: Inactive Member Role Status Dates No Primary Care Physician Primary Care Provider Active Start: April 25, 2025 End: April 25, 2025 Dr. Robbie Markham DO Attending Provider Active Start : April 25, 2025 End: April 25, 2025 Dr. Robbie Markham DO Emergency Provider Active Start : April 25, 2025 End: April 25, 2025 Team Status: Inactive Member Role Status Dates No Primary Care Physician Primary Care Provider Active Start: May 17, 2025 End: May 17, 2025 No Primary Care Physician Referring Provider Active Start: May 17, 2025 End: May 17, 2025 Jamal LAYNE PA Attending Provider Active Start: May 17, 2025 End: May 17, 2025 Goals (unrecognized section and content) Goals may be documented in a n alternate sectionGoals may be documented in an alternate section No data available for this sectionGoals may be documented in an alternate sectionGoals may be documented in an alternate section FOR RECORDS PERTAINING TO PATIENTS WHO ARE [...] BE BASED ON THE PRIMARY CLINICAL RECORDS. [facility] [employer] [facility]. provides no warranty or guarantee of the accuracy or completeness of information in this document.
[2025-07-03] MEDS: Oxymetazoline 0.05% 1 SPRAY SPRAY.BTL NASAL (03:16)
[2025-07-03 03:17] VITALS: BP 141/99; PULSE 64; RESP 18; O2SAT 98
--- NOTE | 2025-07-03 04:08 | NURSING ---
Pt ambulated on meza. Tollerated well with no nose bleed noted.
[2025-07-03 04:09] VITALS: BP 167/90; PULSE 55; RESP 16; TEMP 36.7; O2SAT 97
== END 2025-07-03 04:59 | disposition home or self-care (01) ==
PROVIDERS: Emergency Provider Emergency Medicine; Visit Provider Emergency Medicine
DX: R04.0 Epistaxis (principal); F17.200 Nicotine dependence, unspecified, uncomplicated
CPT/HCPCS: 99282